=== PATIENT | male | born 1970 | race Caucasian/White ===

== ENCOUNTER 2017-06-11 21:10 | Emergency (ER) | payer SELFPAY ==
[2017-06-11 21:15] VITALS: BP 102/88; PULSE 72; O2SAT 98
--- NOTE | 2017-06-11 21:32 | ERPHSYRPT ---
- History of Present Illness Time Seen by Provider: 06/11/17 21:25 Source: patient Exam Limitations: intoxication Patient Subjective Stated Complaint: pt was pulled over and had high breathalyzer. here for clearance of snf. Triage Nursing Assessment: pt was pulled over for Physician History: 47 y/o male brought in by police for alcohol intoxication while driving. Pt had an alcohol level over 200. In the ER, patient is very intoxicated and not able to give a reliable history. Pt denies any chest pain, shortness of breath, dizziness or palpitations. No fall from alcohol use and the patient is denying any illicit drug use. Timing/Duration: today Associated Symptoms: denies symptoms Allergies/Adverse Reactions: No Known Drug Allergies Allergy (Unverified 01/14/13 14:50) Home Medications: Metoprolol Tartrate 0 mg PO BID 01/14/13 [History] Simvastatin 0.5 tab PO HS 01/14/13 [History] Hx Tetanus, Diphtheria Vaccination/Date Given: Yes Hx Influenza Vaccination/Date Given: Yes Hx Pneumococcal Vaccination/Date Given: No Immunizations Up to Date: Yes - Review of Systems Constitutional: No Fever, No Chills Eyes: No Symptoms Ears, Nose, & Throat: No Symptoms Respiratory: No Cough, No Dyspnea Cardiac: No Chest Pain, No Edema, No Palpitations, No Syncope Abdominal/Gastrointestinal: No Abdominal Pain, No Nausea, No Vomiting, No Diarrhea Genitourinary Symptoms: No Dysuria Musculoskeletal: No Back Pain, No Neck Pain Skin: No Rash Neurological: No Dizziness, No Focal Weakness, No Sensory Changes Psychological: No Symptoms Endocrine: No Symptoms All Other Systems: Reviewed and Negative - Past Medical History Pertinent Past Medical History: Yes Cardiac History: Angina, Coronary Artery Disease - Past Surgical History Past Surgical History: Yes Cardiac: CABG, Cardiac Catheterization Musculoskeletal: Other Other Surgical History: tonsils, tumors removed from leg and lymph nodes (cancer ) - Social History Smoking Status: Current every day smoker How long have you smoked: years Exposure to second hand smoke: Yes Alcohol Use: Socially Drug Use: methamphetamines Patient Lives Alone: No Significant Family History: heart disease, hypertension - Nursing Vital Signs Nursing Vital Signs: Initial Vital Signs Temperature 98.2 F 06/11/17 21:12 Pulse Rate 72 06/11/17 21:12 Respiratory Rate 14 06/11/17 21:12 Blood Pressure 102/88 06/11/17 21:12 O2 Sat by Pulse Oximetry 98 06/11/17 21:12 Pain Scale Pain Intensity 0 - Physical Exam General Appearance: alert, anxiety, obese, other (intoxicated) Eye Exam: PERRL/EOMI, eyes nml inspection Ears, Nose, Throat Exam: normal ENT inspection, TMs normal, pharynx normal, moist mucous membranes Neck Exam: normal inspection, non-tender, supple, full range of motion Respiratory Exam: normal breath sounds, lungs clear, No respiratory distress Cardiovascular Exam: regular rate/rhythm, normal heart sounds, normal peripheral pulses Gastrointestinal/Abdomen Exam: soft, normal bowel sounds, No tenderness, No mass Back Exam: normal inspection, normal range of motion, No CVA tenderness, No vertebral tenderness Extremity Exam: normal inspection, normal range of motion, pelvis stable Neurologic Exam: alert, oriented x 3, cooperative, normal mood/affect, nml cerebellar function, nml station & gait, sensation nml, No motor deficits Skin Exam: normal color, warm, dry, No rash Lymphatic Exam: No adenopathy SpO2: 98 Oxygen Delivery: Room Air - Course Nursing assessment & vital signs reviewed: Yes - Progress Progress: unchanged Progress Note: 06/11/17 21:31 Pt has been medically cleared for patient to go to snf. - Departure Time of Disposition: 21:31 Departure Disposition: [facility]/Care Home Clinical Impression: Alcohol intoxication Qualifiers: Complication of substance-induced condition: uncomplicated Qualified Code(s): F10.920 - Alcohol use, unspecified with intoxication, uncomplicated Condition: Good Critical Care Time: No Instructions: Alcohol Abuse and Alcoholism (DC)
== END 2017-06-11 21:37 | disposition home or self-care (01) ==
LOC: ED 21:10
DX: F10.920 Alcohol use, unspecified with intoxication, uncomplicated (principal)
CPT/HCPCS: 99281

== ENCOUNTER 2017-07-13 11:54 | Inpatient (IN) | payer MEDICAID, OTHER ==
--- NOTE | 2017-07-13 12:46 | ERPHSYRPT ---
- History of Present Illness Time Seen by Provider: 07/13/17 12:39 Source: patient, police Exam Limitations: no limitations Patient Subjective Stated Complaint: pt here for sob since last night.with productive cough, low grade fever, Triage Nursing Assessment: pt alert, resp easy, skin w/d/p, chest clear, no edema, pt walked in Physician History: The patient is a 47-year-old inmate at the [facility] brought in by police complaining of a cough with green sputum since last night. He feels short of breath. He had a fever of 100 earlier today. He denies nausea, vomiting, or diarrhea. He smokes cigarettes but hasn't since he's been in long term. His past medical history is significant for coronary artery disease, 4 vessel CABG in November 2016, high cholesterol, and hypertension. Timing/Duration: yesterday, gradual onset Cough Quality/Degree: productive cough, sputum Possible Cause: no prior episodes Modifying Factors: Improves With: coughing Associated Symptoms: fever, cough Allergies/Adverse Reactions: No Known Drug Allergies Allergy (Verified 07/13/17 12:33) Home Medications: Metoprolol Tartrate 25 mg PO BID 01/14/13 [History] Simvastatin 0.5 tab PO HS 01/14/13 [History] Amiodarone HCl 200 mg [Cordarone 200 MG] 200 mg DAILY 07/13/17 [History] Aspirin [Aspirin EC] 07/13/17 [History] Furosemide 40 mg [Lasix 40 MG] 07/13/17 [History] Ibuprofen [Motrin Ib] 07/13/17 [History] Magnesium Oxide 400 mg [Mag-Ox 400] 07/13/17 [History] Potassium Citrate [Potassium Citrate ER] 07/13/17 [History] Sertraline HCl 07/13/17 [History] Hx Tetanus, Diphtheria Vaccination/Date Given: Yes Hx Influenza Vaccination/Date Given: No Hx Pneumococcal Vaccination/Date Given: No Immunizations Up to Date: Yes - Review of Systems Constitutional: Fever Eyes: No Symptoms Ears, Nose, & Throat: No Symptoms Respiratory: Cough, Dyspnea, Dyspnea on Exertion (REED) Cardiac: No Chest Pain, No Edema, No Syncope Abdominal/Gastrointestinal: No Abdominal Pain, No Nausea, No Vomiting, No Diarrhea Genitourinary Symptoms: No Dysuria Musculoskeletal: No Back Pain, No Neck Pain Skin: No Rash Neurological: No Dizziness, No Focal Weakness, No Sensory Changes Psychological: No Symptoms Endocrine: No Symptoms Hematologic/Lymphatic: No Symptoms Immunological/Allergic: No Symptoms All Other Systems: Reviewed and Negative - Past Medical History Pertinent Past Medical History: Yes Cardiac History: Angina, Coronary Artery Disease, High Cholesterol, Hypertension - Past Surgical History Past Surgical History: Yes Cardiac: CABG, Cardiac Catheterization Musculoskeletal: Other Other Surgical History: tonsils, tumors removed from leg and lymph nodes (cancer ) - Social History Smoking Status: Current every day smoker How long have you smoked: years Exposure to second hand smoke: Yes (stop smoking for a m) Alcohol Use: Socially Drug Use: methamphetamines Patient Lives Alone: No (long term) Significant Family History: heart disease, hypertension - Nursing Vital Signs Nursing Vital Signs: Initial Vital Signs Temperature 98.4 F 07/13/17 12:00 Pulse Rate 53 L 07/13/17 12:00 Respiratory Rate 20 07/13/17 12:00 Blood Pressure 140/77 07/13/17 12:00 O2 Sat by Pulse Oximetry 93 L 07/13/17 12:00 Pain Scale Pain Intensity 2 - Physical Exam General Appearance: no apparent distress, alert Eye Exam: PERRL/EOMI, eyes nml inspection Ears, Nose, Throat Exam: normal ENT inspection, TMs normal, pharynx normal, moist mucous membranes Neck Exam: normal inspection, non-tender, supple, full range of motion Respiratory Exam: wheezing (faint) Cardiovascular Exam: regular rate/rhythm, normal heart sounds Gastrointestinal/Abdomen Exam: soft, No tenderness Rectal Exam: not done Back Exam: normal inspection, No CVA tenderness, No vertebral tenderness Extremity Exam: normal inspection, normal range of motion Neurologic Exam: alert, oriented x 3, cooperative, normal mood/affect, sensation nml, No motor deficits Skin Exam: normal color, warm, dry, No rash Lymphatic Exam: No adenopathy SpO2 Interpretation: normal SpO2: 98 Oxygen Delivery: Room Air - Course EKG Interpreted by Me: RATE, Sinus Rhythm, NORMAL AXIS, 1st degree AV Block, NORMAL QRS, NORMAL ST-T - Radiology Exams Chest X-ray Interpretation: Reviewed by me, Teleradiologist Report, Other (bilateral airspace disease with tiny bibasilar effusions. per Dr Woodall.) Ordered Tests: Active Orders 24 hr Category Date Time Status EKG-ER Only STAT Care 07/13/17 14:30 Active IV Insertion STAT Care 07/13/17 14:30 Active CHEST 2 VIEWS (PA AND LAT) Stat Exams 07/13/17 14:30 Completed CBC W DIFF Stat Lab 07/13/17 14:47 Completed CMP Stat Lab 07/13/17 14:47 Completed CULTURE,SPUTUM Stat Lab 07/13/17 16:01 Uncollected Lactic Acid Stat Lab 07/13/17 14:43 Completed NT PRO BNP Stat Lab 07/13/17 15:33 Completed TROPONIN Stat Lab 07/13/17 14:47 Completed Respiratory Nebulizer STAT RT 07/13/17 15:32 Completed Medication Summary Discontinued Medications Generic Name Dose Route Start Last Admin Trade Name Freq PRN Reason Stop Dose Admin Albuterol Sulfate 2.5 mg 07/13/17 15:31 07/13/17 15:45 Proventil 2.5 Mg/3 Ml Neb IH 07/13/17 15:32 2.5 mg STAT ONE Administration Albuterol Sulfate Confirm 07/13/17 15:41 Proventil 2.5 Mg/3 Ml Neb Administered 07/13/17 15:42 Dose 2.5 mg IH .STK-MED ONE Lab/Rad Data: Laboratory Result Diagrams 07/13/17 14:47 07/13/17 14:47 Laboratory Results 07/13/17 07/13/17 07/13/17 Range/Units 15:33 14:47 14:47 WBC 13.0 H (4.0-10.5) K/mm3 RBC 5.25 (4.1-5.6) M/mm3 Hgb 15.2 (12.5-18.0) gm/dl Hct 45.4 (42-50) % MCV 86.5 (78-100) fl MCH 29.0 (26-32) pg MCHC 33.5 (32-36) g/dl RDW 15.8 H (11.5-14.0) % Plt Count 198 (150-450) K/mm3 MPV 13.0 H (6-9.5) fl Gran % 83.1 H (36.0-66.0) % Eos # (Auto) 0.11 (0-0.5) Absolute Lymphs (auto) 1.09 (1.0-4.6) Absolute Monos (auto) 0.98 (0.0-1.3) Lymphocytes % 8.4 L (24.0-44.0) % Monocytes % 7.5 (0.0-12.0) % Eosinophils % 0.8 (0.00-5.0) % Basophils % 0.2 (0.0-0.4) % Absolute Granulocytes 10.83 H (1.4-6.9) Basophils # 0.03 (0-0.4) Sodium 142 (137-145) mmol/L Potassium 4.4 (3.5-5.1) mmol/L Chloride 104 (98-107) mmol/L Carbon Dioxide 25 (22-30) mmol/L Anion Gap 16.8 H (5-15) MEQ/L BUN 16 (9-20) mg/dL Creatinine 0.85 (0.66-1.25) mg/dL Estimated GFR > 60 ML/MIN Glucose 126 H (74-106) mg/dL Lactic Acid (0.4-2.0) Calcium 9.5 (8.4-10.2) mg/dL Total Bilirubin 1.00 (0.2-1.3) mg/dL AST 19 (17-59) U/L ALT 15 (0-50) U/L Alkaline Phosphatase 71 (38-126) U/L Troponin I 0.049 H* (0.000-0.034) ng/mL NT-Pro-B Natriuret Pep 3410 H (0-450) pg/mL Serum Total Protein 6.9 (6.3-8.2) g/dL Albumin 3.9 (3.5-5.0) g/dL 07/13/17 Range/Units 14:43 WBC (4.0-10.5) K/mm3 RBC (4.1-5.6) M/mm3 Hgb (12.5-18.0) gm/dl Hct (42-50) % MCV (78-100) fl MCH (26-32) pg MCHC (32-36) g/dl RDW (11.5-14.0) % Plt Count (150-450) K/mm3 MPV (6-9.5) fl Gran % (36.0-66.0) % Eos # (Auto) (0-0.5) Absolute Lymphs (auto) (1.0-4.6) Absolute Monos (auto) (0.0-1.3) Lymphocytes % (24.0-44.0) % Monocytes % (0.0-12.0) % Eosinophils % (0.00-5.0) % Basophils % (0.0-0.4) % Absolute Granulocytes (1.4-6.9) Basophils # (0-0.4) Sodium (137-145) mmol/L Potassium (3.5-5.1) mmol/L Chloride (98-107) mmol/L Carbon Dioxide (22-30) mmol/L Anion Gap (5-15) MEQ/L BUN (9-20) mg/dL Creatinine (0.66-1.25) mg/dL Estimated GFR ML/MIN Glucose (74-106) mg/dL Lactic Acid 1.2 (0.4-2.0) Calcium (8.4-10.2) mg/dL Total Bilirubin (0.2-1.3) mg/dL AST (17-59) U/L ALT (0-50) U/L Alkaline Phosphatase (38-126) U/L Troponin I (0.000-0.034) ng/mL NT-Pro-B Natriuret Pep (0-450) pg/mL Serum Total Protein (6.3-8.2) g/dL Albumin (3.5-5.0) g/dL - Progress Progress: improved Air Movement: good Blood Culture(s) Obtained: Yes Antibiotics given: Yes Discussed with : Jayla Counseled pt/family regarding: lab results, diagnosis, rad results - Departure Time of Disposition: 16:28 Departure Disposition: In-patient Admission (per Dr Dickerson) Clinical Impression: Pneumonia Condition: Stable Critical Care Time: No Referrals: DOCTOR,NO FAMILY [Primary Care Provider] -
[2017-07-13 14:49] LABS: BASOPHIL % 0.2 % (0.0-0.4); Basophil (Absolute #) 0.03 (0-0.4); Eosinophil % 0.8 % (0.00-5.0); Eosinophil (Absolute #) 0.11 (0-0.5); Granulocyte Absolute (ANC) 10.83 (1.4-6.9); Granulocytes % 83.1 % (36.0-66.0); Hematocrit 45.4 % (42-50); Hemoglobin 15.2 gm/dl (12.5-18.0); Lymphocyte (Absolute #) 1.09 (1.0-4.6); Lymphocytes % 8.4 % (24.0-44.0); Mean Cell Volume 86.5 fl (78-100); Mean Corpuscular Hgb Concent. 33.5 g/dl (32-36); Monocyte (Absolute #) 0.98 (0.0-1.3); Monocytes % 7.5 % (0.0-12.0); Platelet Count 198 K/mm3 (150-450); Red Blood Count 5.25 M/mm3 (4.1-5.6); Red Cell Distribution Width 15.8 % (11.5-14.0)
[2017-07-13 15:10] LABS: ALBUMIN 3.9 g/dL (3.5-5.0); ALKALINE PHOSPHATASE 71 U/L (38-126); ANION GAP 16.8 MEQ/L (5-15); BLOOD UREA NITROGEN 16 mg/dL (9-20); CHLORIDE 104 mmol/L (98-107); Calcium 9.5 mg/dL (8.4-10.2); Carbon Dioxide 25 mmol/L (22-30); Creatinine 1 0.85 mg/dL (0.66-1.25); Glucose 126 mg/dL (74-106); Potassium 4.4 mmol/L (3.5-5.1); SGOT/AST 19 U/L (17-59); SGPT/ALT 15 U/L (0-50); SODIUM 142 mmol/L (137-145); Total Protein 6.9 g/dL (6.3-8.2)
[2017-07-13] MEDS ORDERED: PROVENTIL 2.5 MG/3 ML NEB IH ONE ×2 (15:31→15:41)
[2017-07-13 15:32] LABS: TROPONIN 0.049 ng/mL (0.000-0.034)
--- NOTE | 2017-07-13 15:32 | XRAY ---
Indication: Fever, cough, and chest pain. Comparison: December 10, 2009. PA/lateral chest demonstrates new diffuse bilateral airspace disease with tiny bibasilar effusions. Heart remains enlarged with interval CABG surgery. Bony thorax intact with mild degenerative changes.
[2017-07-13] MEDS ORDERED: ROCEPHIN 1 Gm-D5w 50 ml Bag** 1 G/50 ML IVPB IV STA (16:27)
[2017-07-13] MEDS ORDERED: ROCEPHIN 1 Gm-D5w 50 ml Bag** 1 G/50 ML IVPB IV ONE (16:30)
[2017-07-13] MEDS ORDERED: Zofran 4 MG/2 ML VIAL IV PRN (17:17)
[2017-07-13 17:49] LABS: INFLUENZA A NEGATIVE (NEGATIVE); INFLUENZA B NEGATIVE (NEGATIVE); RESPIRATORY SYNCTIAL VIRUS NEGATIVE (Negative)
[2017-07-13] MEDS: Zithromax 500 MG/ 250 ML NaCl Premix 500 MG/250 ML IVPB IV SCH (17:53)
[2017-07-13] MEDS: PROVENTIL 2.5 MG/3 ML NEB IH SCH (18:45)
[2017-07-13 21:27] LABS: A-aADO2 207; ABG HEMOGLOBIN 15.2; ABG POTASSIUM 4.3 (3.5-5.1); ARTERIAL BLD GAS O2 SATURATION 97.4 % (95-100); ARTERIAL BLOOD GAS BASE EXCESS 2.3 (-2.0-2.0); ARTERIAL BLOOD GAS FIO2 44 %; ARTERIAL BLOOD GAS PCO2 33 mmHg (35-45); ARTERIAL BLOOD GAS PO2 65 mmHg (75-100); ARTERIAL BLOOD GAS pH 7.49 (7.35-7.45); CARBOXYHEMOGLOBIN 3.1 % THgb (0.0-6.9); HCO3- 25.1 (22-28); HGB O2 SAT 92.9 g/dF (94-100); Methhemoglobin 1.5 % (1.4-1.5); paO2 pAO1 0.24
[2017-07-13 21:28] LABS: ABG SITE LEFT RADIAL; ALLEN TEST OK? YES
[2017-07-13] MEDS ORDERED: MOTRIN 200 MG PO ONE (22:00)
[2017-07-13] MEDS ORDERED: Lopressor 25MG Tab PO ONE (22:00)
[2017-07-13] MEDS ORDERED: ZOCOR 20MG PO ONE (22:00)
[2017-07-13] MEDS: ENOXAPARIN SODIUM SQ SCH (22:26)
[2017-07-14] MEDS: PROVENTIL 2.5 MG/3 ML NEB IH SCH ×7 (00:50→23:23)
[2017-07-14] MEDS: TYLENOL 325 MG PO PRN ×2 (03:40→23:32)
[2017-07-14 04:40] LABS: BASOPHIL % 0.2 % (0.0-0.4); Basophil (Absolute #) 0.03 (0-0.4); Eosinophil % 0.1 % (0.00-5.0); Eosinophil (Absolute #) 0.02 (0-0.5); Granulocytes % 81.7 % (36.0-66.0); Hematocrit 42.5 % (42-50); Hemoglobin 14.5 gm/dl (12.5-18.0); Lymphocyte (Absolute #) 1.48 (1.0-4.6); Lymphocytes % 9.8 % (24.0-44.0); Mean Cell Volume 86.4 fl (78-100); Mean Corpuscular Hemoglobin 29.5 pg (26-32); Mean Corpuscular Hgb Concent. 34.1 g/dl (32-36); Monocyte (Absolute #) 1.23 (0.0-1.3); Monocytes % 8.2 % (0.0-12.0); Platelet Count 175 K/mm3 (150-450); Red Blood Count 4.92 M/mm3 (4.1-5.6); Red Cell Distribution Width 15.8 % (11.5-14.0); White Blood Count 15.1 K/mm3 (4.0-10.5)
[2017-07-14 05:04] LABS: ALBUMIN 3.7 g/dL (3.5-5.0); ALKALINE PHOSPHATASE 64 U/L (38-126); ANION GAP 16.3 MEQ/L (5-15); BLOOD UREA NITROGEN 18 mg/dL (9-20); CHLORIDE 105 mmol/L (98-107); Calcium 9.1 mg/dL (8.4-10.2); Carbon Dioxide 23 mmol/L (22-30); Creatinine 1 0.76 mg/dL (0.66-1.25); Glucose 147 mg/dL (74-106); SGOT/AST 14 U/L (17-59); SGPT/ALT 12 U/L (0-50); SODIUM 141 mmol/L (137-145); Total Protein 6.6 g/dL (6.3-8.2)
--- NOTE | 2017-07-14 09:26 | HP ---
CHIEF COMPLAINT: Shortness of breath. HISTORY OF PRESENT ILLNESS: The patient is a 47 year-old white male patient resident of the local group home for the past 30 days. He apparently had three more weeks to go. He was released from the group home for his hospital stay but they wish him to return after the hospitalization. The patient's medical history includes history of coronary artery disease with coronary artery bypass graft performed approximately six months ago. He has been taken care of by Dr. Hay in [place] but currently sees the [facility] otherwise for his usual medical care. The patient denied any problems with fevers, chills or sweats recently. Just having more problems with shortness of breath, having to sit up to sleep at night and having very shallow respirations. The patient was brought to the emergency room and found to have some hypoxia. He had evaluation and eventually diagnosed with pneumonia, possible superimposed heart failure. PAST MEDICAL/SURGICAL HISTORY: Otherwise significant for hyperlipidemia. He is a smoker. 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 MEDICATIONS: Metoprolol 25 mg b.i.d., Simvastatin at night, amiodarone 200 mg, aspirin enteric coated daily, Lasix 40 mg daily, ibuprofen PRN, magnesium oxide tablets, potassium, Sertraline for depression. ALLERGIES: NKDA. PHYSICAL EXAMINATION: Vital signs with temperature 98.4F, pulse 52, respiratory rate 20, blood pressure 140/77. O2 saturations 93% on supplemental oxygen with nasal cannula. HEENT: Normocephalic, atraumatic. Pupils equal round reactive to light. Extraocular movements intact. Oropharynx is pink and moist. He is wearing oxygen nasal cannula presently. NECK: Supple without lymphadenopathy, thyromegaly or JVD. CHEST: Diminished air movements but no significant wheezes or rales were heard. HEART: Regular rate and rhythm without significant murmurs, rubs or gallops. ABDOMEN: Soft. No palpable masses. EXTREMITIES: Without clubbing or cyanosis. There is trace edema present in the lower extremities. LAB DATA AND TESTS: Chest x-ray revealed new diffuse bilateral airspace disease with tiny bibasilar effusions and evidence of coronary artery bypass graft. His lab studies revealed a slightly elevated troponin of 0.056 in the emergency room. His lactic acid was noted to be 1.2. ProBNP was elevated at 3,410. His metabolic panel showed a glucose of 126 nonfasting, BUN 16, creatinine 0.85. Electrolytes were normal. Liver enzymes were normal. His white blood cell count was elevated at 13,000 with what appears to be left shift with 83.1% granulocytes. His hemoglobin 15.2, PLT count 198,000. Influenza A, B and respiratory syncytial virus were negative. He had initial ABG showing pH of 7.49, pCO2 33, pO2 65 this was on FIO2 of 44%. His EKG revealed sinus bradycardia rate of 52. He had tiny Q-waves in I and aVL, poor R-wave progression across the precordial leads but no current injury with no significant ST-T wave changes. ASSESSMENT: A patient with probable pneumonia. He has been admitted on Rocephin and Zithromax and also concern for possible overlying heart failure. He will receive some IV Lasix. We will retain an echocardiogram. He will be maintained on his usual home medications as listed in the history and physical above.
[2017-07-14] MEDS: ZOLOFT 50 MG TABLET PO SCH (09:59)
[2017-07-14] MEDS: ENOXAPARIN SODIUM SQ SCH (10:00)
[2017-07-14] MEDS: Lasix 40 MG/4 ML IV SCH (10:00)
[2017-07-14] MEDS ORDERED: Lasix 40 MG PO SCH (10:00)
[2017-07-14] MEDS: Klor Con 10 MEQ PO SCH (10:00)
[2017-07-14] MEDS: ECOTRIN 81 MG PO SCH (10:00)
[2017-07-14] MEDS ORDERED: NON-FORMULARY ITEM (Aspirin [Aspirin] 81 MG) PO SCH (10:00)
[2017-07-14] MEDS: Lopressor 25MG Tab PO SCH ×2 (10:00→20:33)
[2017-07-14] MEDS: MOTRIN 200 MG PO SCH ×2 (10:00→20:34)
[2017-07-14] MEDS: Cordarone 200 MG PO SCH (10:00)
[2017-07-14] MEDS: MAG-OX 400 PO SCH (10:00)
[2017-07-14] MEDS ORDERED: ROCEPHIN 1 Gm-D5w 50 ml Bag** 1 G/50 ML IVPB IV SCH (10:00)
[2017-07-14] MEDS: Zithromax 500 MG/ 250 ML NaCl Premix 500 MG/250 ML IVPB IV SCH (17:59)
[2017-07-14 21:23] LABS: A-aADO2 265; ABG POTASSIUM 3.9 (3.5-5.1); ARTERIAL BLD GAS O2 SATURATION 95.5 % (95-100); ARTERIAL BLOOD GAS BASE EXCESS 2.2 (-2.0-2.0); ARTERIAL BLOOD GAS FIO2 52 %; ARTERIAL BLOOD GAS PCO2 35 mmHg (35-45); ARTERIAL BLOOD GAS PO2 62 mmHg (75-100); ARTERIAL BLOOD GAS pH 7.47 (7.35-7.45); CARBOXYHEMOGLOBIN 2.9 % THgb (0.0-6.9); HCO3- 25.5 (22-28); HGB O2 SAT 91.6 g/dF (94-100); Methhemoglobin 1.3 % (1.4-1.5); paO2 pAO1 0.19
[2017-07-14 21:24] LABS: ABG SITE RIGHT RADIAL; ALLEN TEST OK? YES
[2017-07-14] MEDS ORDERED: ZOCOR 20MG PO SCH (22:00)
[2017-07-14] MEDS ORDERED: Lasix 40 MG/4 ML IV ONE (22:38)
[2017-07-14] MEDS ORDERED: LEVOFLOXACIN 750MG/150ML D5W 750 MG/150 ML BAG IV ONE (22:41)
[2017-07-15] MEDS: PROVENTIL 2.5 MG/3 ML NEB IH SCH ×3 (03:32→12:04)
[2017-07-15] MEDS ORDERED: solu-MEDROL 125 MG IV SCH ×2 (04:00→12:00)
[2017-07-15 06:03] LABS: BASOPHIL % 0.2 % (0.0-0.4); Basophil (Absolute #) 0.02 (0-0.4); Eosinophil % 0.6 % (0.00-5.0); Eosinophil (Absolute #) 0.08 (0-0.5); Granulocyte Absolute (ANC) 9.73 (1.4-6.9); Granulocytes % 75.4 % (36.0-66.0); Hematocrit 41.4 % (42-50); Hemoglobin 13.8 gm/dl (12.5-18.0); Lymphocyte (Absolute #) 1.65 (1.0-4.6); Lymphocytes % 12.8 % (24.0-44.0); Mean Cell Volume 87.2 fl (78-100); Mean Corpuscular Hemoglobin 29.1 pg (26-32); Mean Corpuscular Hgb Concent. 33.3 g/dl (32-36); Mean Platelet Volume 12.7 fl (6-9.5); Monocyte (Absolute #) 1.42 (0.0-1.3); Platelet Count 157 K/mm3 (150-450); Red Blood Count 4.75 M/mm3 (4.1-5.6); Red Cell Distribution Width 15.7 % (11.5-14.0); White Blood Count 12.9 K/mm3 (4.0-10.5)
[2017-07-15 06:29] LABS: BLOOD UREA NITROGEN 19 mg/dL (9-20); Calcium 9.1 mg/dL (8.4-10.2); Carbon Dioxide 27 mmol/L (22-30); Creatinine 1 0.65 mg/dL (0.66-1.25); Glucose 108 mg/dL (74-106); SODIUM 139 mmol/L (137-145)
[2017-07-15 06:31] LABS: CHLORIDE 101 mmol/L (98-107)
[2017-07-15 06:40] LABS: NT PRO BNP 2740 pg/mL (0-450)
[2017-07-15] MEDS ORDERED: Ativan 2 MG/1 ML VIAL IV ONE (09:16)
[2017-07-15] MEDS ORDERED: Furosemide 100mg/10 ml Vial IV ONE (09:29)
[2017-07-15] MEDS: MAG-OX 400 PO SCH (09:44)
[2017-07-15] MEDS: Cordarone 200 MG PO SCH (09:44)
[2017-07-15] MEDS: ECOTRIN 81 MG PO SCH (09:44)
[2017-07-15] MEDS: ENOXAPARIN SODIUM SQ SCH (09:44)
[2017-07-15] MEDS: Klor Con 10 MEQ PO SCH (09:45)
[2017-07-15] MEDS: Lopressor 25MG Tab PO SCH (09:45)
[2017-07-15] MEDS: Lasix 40 MG/4 ML IV SCH (09:45)
[2017-07-15] MEDS: ZOLOFT 50 MG TABLET PO SCH (09:45)
[2017-07-15 09:55] LABS: HIV Antigen/Antibody Combo Non Reactive (Non Reactive)
[2017-07-15] MEDS ORDERED: LEVOFLOXACIN 750MG/150ML D5W 750 MG/150 ML BAG IV SCH ×3 (10:00→22:00)
--- NOTE | 2017-07-15 10:03 | PCM.DS ---
Discharge Summary Date of Admission: 07/13/17 17:06 Admitting Physician: ALESHIA CALVERT Consults: Consults on Case 07/14/17 08:52 Consult Pulmonology ROUTINE Primary Care Provider: NO FAMILY DOCTOR Allergies Allergies No Known Drug Allergies Allergy (Verified 07/13/17 17:36) Hospital Summary - Hospital Course Hospital Course: Pt is 47 yo male with CAD admitted to [facility] through ER with pneumonia. He was an inmate of the formerly [facility] senior living, but was released on his own recognizance here at the hospital (after discharge is apparently expected to return to senior living). Initially he had an O2 requirement of 3L NC, but by last night required 8L NC. CXR at that time with diffuse airspace disease, question of developing ARDS. He was changed from his initial antibiotic therapy of rocephin and zithromax to Levaquin 750 mg and given 125mg IV solumedrol. This morning CXR shows a little worsening. He was on Bipap overnight; tried to get off of it this morning (sat in the chair to eat) but O2 sat dropped into the 70s. His RR is in the 40s and he is currently still on bipap. I spoke with Dr. Owens, hospitalist at [facility], and we will transfer the patient to [facility]. I have ordered a dose of IV zosyn. We are going to intubate the patient first; pt was relieved to hear he will be intubated. - Vitals & Intake/Output Vital Signs: Vital Signs Temperature 97.8 F 07/15/17 08:00 Pulse Rate 64 07/15/17 08:00 Respiratory Rate 40 H 07/15/17 08:00 Blood Pressure 126/75 07/15/17 08:00 O2 Sat by Pulse Oximetry 96 07/15/17 08:00 Oxygen-Last Documented O2 Percentage 50% Intake & Output: Intake & Output 07/12/17 07/13/17 07/14/17 07/15/17 11:59 11:59 11:59 11:59 Intake Total 1300 2250 Output Total 1210 3230 Balance 90 -980 Weight 125.5 kg 122.7 kg - Lab Result Diagrams: 07/15/17 05:13 07/15/17 05:13 Lab Results-Last 24 Hrs: Lab Results-Last 24 Hours 07/14/17 07/15/17 07/15/17 Range/Units 21:14 05:13 05:13 WBC 12.9 H (4.0-10.5) K/mm3 RBC 4.75 (4.1-5.6) M/mm3 Hgb 13.8 (12.5-18.0) gm/dl Hct 41.4 L (42-50) % MCV 87.2 (78-100) fl MCH 29.1 (26-32) pg MCHC 33.3 (32-36) g/dl RDW 15.7 H (11.5-14.0) % Plt Count 157 (150-450) K/mm3 MPV 12.7 H (6-9.5) fl Gran % 75.4 H (36.0-66.0) % Eos # (Auto) 0.08 (0-0.5) Absolute Lymphs (auto) 1.65 (1.0-4.6) Absolute Monos (auto) 1.42 H (0.0-1.3) Lymphocytes % 12.8 L (24.0-44.0) % Monocytes % 11.0 (0.0-12.0) % Eosinophils % 0.6 (0.00-5.0) % Basophils % 0.2 (0.0-0.4) % Absolute Granulocytes 9.73 H (1.4-6.9) Basophils # 0.02 (0-0.4) Puncture Site RIGHT RADIAL pCO2 35 (35-45) mmHg pO2 62 L (75-100) mmHg Base Excess 2.2 H (-2.0-2.0) O2 Saturation 91.6 L (94-100) g/dF ABG pH 7.47 H (7.35-7.45) ABG HCO3 25.5 (22-28) ABG O2 Sat (Measured) 95.5 (95-100) % Austen Test YES A-a Gradient 265 a/A Ratio 0.19 Hemoglobin 15.0 Carboxyhemoglobin 2.9 (0.0-6.9) % THgb Methemoglobin 1.3 L (1.4-1.5) % Potassium 3.9 4.0 (3.5-5.1) Temperature 37.0 C POC O2 Flow Rate 52 % Sodium 139 (137-145) mmol/L Chloride 101 (98-107) mmol/L Carbon Dioxide 27 (22-30) mmol/L Anion Gap 11.0 (5-15) MEQ/L BUN 19 (9-20) mg/dL Creatinine 0.65 L (0.66-1.25) mg/dL Estimated GFR > 60 ML/MIN Glucose 108 H (74-106) mg/dL Calcium 9.1 (8.4-10.2) mg/dL NT-Pro-B Natriuret Pep 2740 H (0-450) pg/mL - Radiology Exams Ordered Rad Exams-Entire Visit: Radiology Procedures Category Date Time Status CHEST 1 VIEW (PORTABLE) Routine Exams 07/15/17 06:00 Taken CHEST 1 VIEW (PORTABLE) Stat Exams 07/14/17 20:57 Taken ECHO W/2D AND DOPPLER [US] Routine Exams 07/14/17 13:51 Taken - Procedures and Test Procedures and Tests throughout Hospitalization: Therapy Orders & Screens 07/13/17 17:17 Oxygen NASAL CANNULA 2 lpm Comment: Diagnosis: Shortness of Breath 07/13/17 19:00 neb [Respiratory Nebulizer] Q4H Comment: Diagnosis: Shortness of Breath 07/13/17 19:29 BiPap/CPAP Assessment ROUTINE Comment: Diagnosis: Shortness of Breath Discharge Exam General Appearance: moderate distress (tachypneic), obese Neurologic Exam: alert, cooperative Skin Exam: normal color, warm, dry, No rash Eye Exam: eyes nml inspection Ears, Nose, Throat Exam: moist mucous membranes Respiratory Exam: lungs clear, diminished breath sounds, No crackles/rales, No rhonchi, No wheezing Cardiovascular Exam: regular rate/rhythm, normal heart sounds, No murmur Gastrointestinal/Abdomen Exam: soft, normal bowel sounds, No tenderness, No mass , No guarding, No rebound Extremity Exam: normal inspection, No pedal edema, No swelling Final Diagnosis/Problem List - Final Discharge Diagnosis/Problem (1) Acute hypoxemic respiratory failure Current Visit: Yes Status: Acute Assessment & Plan: Will intubate here and transfer by ambulance to [facility] under Dr. Roberson, hospitalist (thank you). I gave him 40mg IV lasix last night and 80mg IV lasix this morning (BNP is elevated). (2) Pneumonia Current Visit: Yes Status: Acute Onset Date: ~07/14/17 Assessment & Plan: Stopped IV levaquin; ordered IV zosyn. (3) Elevated troponin Current Visit: Yes Status: Acute Onset Date: 07/14/17 Assessment & Plan: Was elevated early in his stay, then trended down. (4) Hx of CABG Current Visit: Yes Status: Acute Onset Date: ~11/30/16 Assessment & Plan: In Nov 2016 had CABG x 4. - Discharge Disposition: DC TO [facility] Condition: Stable Prescriptions: No Action Simvastatin 40 mg PO HS Metoprolol Tartrate 25 mg PO BID Sertraline HCl 50 mg PO DAILY Magnesium Oxide 400 mg [Mag-Ox 400] 400 mg PO DAILY Ibuprofen [Motrin Ib] 200 mg PO BID Furosemide 40 mg [Lasix 40 MG] 40 mg PO DAILY Amiodarone HCl 200 mg [Cordarone 200 MG] 200 mg DAILY Potassium Chloride 10 Meq Tab* [Klor Con 10 MEQ] 10 meq PO DAILY Aspirin 81 mg PO DAILY Follow up with: DOCTOR,NO FAMILY [Primary Care Provider] - 1 Week
[2017-07-15] MEDS: Zosyn INJ 4.5 GM in D5w 100ML Mini Bag 100 ML 100 ML IV SCH ×2 (10:04→10:09)
--- NOTE | 2017-07-15 10:13 | XRAY ---
Indication: Change in respiratory status. Comparison: One day earlier. Portable chest demonstrates worsening diffuse bilateral air space opacities with now multifocal consolidations and small bibasilar effusions now obscuring the cardiac silhouette. Rule out acute respiratory distress syndrome.
[2017-07-15] MEDS ORDERED: VERSED 5 MG/5 ML IV ONE ×3 (10:30→13:50)
[2017-07-15] MEDS ORDERED: Quelicin Fliptop 200 MG/10 ML IV ONE (10:30)
--- NOTE | 2017-07-15 10:31 | XRAY ---
Indication: Respiratory distress. Short of breath. Transfer to ICU. Comparison: One day earlier. Portable apical lordotic chest demonstrates stable marked diffuse bilateral air space disease with multifocal consolidations and small bibasilar effusions again obscuring the cardiomediastinal silhouette. No new findings. Comment: Preliminary interpretation was made by [facility]. No discrepancy.
[2017-07-15] MEDS ORDERED: Nimbex 20MG/10 Ml Vial (HIGH RISK MED) IV ONE (10:45)
[2017-07-15] MEDS ORDERED: Versed 50 MG/ 10 Ml MDV*** 50 MG in Sodium Chloride 0.9% 250 ML 240 ML IV PRN (10:47)
[2017-07-15] MEDS ORDERED: Nimbex 200MG/20 Ml MDV (HIGH RISK MED)** 200 MG in Dextrose 5%/Water IV Soln. 250 ML 18... IV SCH (11:00)
[2017-07-15] MEDS ORDERED: Sodium Chloride 0.9% 1000 ML 1,000 ML IV SCH (11:00)
[2017-07-15 11:17] LABS: A-aADO2 558; ABG HEMOGLOBIN 15.6; ABG POTASSIUM 3.7 (3.5-5.1); ARTERIAL BLD GAS O2 SATURATION 96.9 % (95-100); ARTERIAL BLOOD GAS BASE EXCESS 0.9 (-2.0-2.0); ARTERIAL BLOOD GAS FIO2 100 %; ARTERIAL BLOOD GAS PO2 76 mmHg (75-100); ARTERIAL BLOOD GAS pH 7.28 (7.35-7.45); CARBOXYHEMOGLOBIN 2.8 % THgb (0.0-6.9); HCO3- 29.6 (22-28); HGB O2 SAT 93.2 g/dF (94-100); paO2 pAO1 0.12
[2017-07-15 11:18] LABS: ARTERIAL BLOOD GAS PCO2 63 mmHg (35-45)
[2017-07-15 11:19] LABS: ABG SITE LEFT RADIAL; ALLEN TEST OK? NO; ARTERIAL BLD GAS TIDAL VOLUME 700 cc; ARTERIAL BLOOD GAS PEEP 5 cmH2O; ARTERIAL BLOOD GAS VENT MODE AC; ARTERIAL BLOOD GAS VENT RATE 14 /MIN
[2017-07-15] MEDS ORDERED: NovoLOG Insulin SQ PRN (12:01)
[2017-07-15 14:38] VITALS: BP 118/61; PULSE 104; O2SAT 94
--- NOTE | 2017-07-15 22:51 | XRAY ---
Indication: Tube placement. Comparison: Taken earlier in the day. Portable chest demonstrates interval intubation with endotracheal tube tip 6 cm above the enoc. New NG tube traverses the chest with the tip presumed in the stomach. Stable extensive bilateral airspace opacities with small effusions again obscuring the cardiac silhouette. Comment: Preliminary interpretation was made by [facility]. No discrepancy.
--- NOTE | 2017-07-18 08:57 | ECHO ---
DATE OF PROCEDURE: 07/14/2017 CLINICAL INFORMATION: History of coronary artery bypass graft surgery. The M-mode 2D, and Doppler echocardiogram including color flow Doppler shows left ventricle is moderately dilated with a dimension of 6.4 cm. The septal wall thickness is increased at 1.2 cm. The left ventricular posterior wall thickness is increased at 1.2 cm. There is normal contractility of the left ventricle with an ejection fraction calculated at 58%. There is mild to moderate mitral regurgitation. There is no apical thrombus present. The right ventricle appears to be normal in size and function. The left atrium is moderately dilated at 5.5 cm. The right atrium is normal. The interatrial septum is intact. The aortic valve opens well. There is mild to moderate mitral regurgitation present. There is mild to moderate tricuspid regurgitation. The right ventricular systolic pressure is moderately elevated at 45 mm of Mercury. The pulmonic valve is not well visualized. The aortic root is normal at 2.8 cm. There is no pericardial effusion present. IMPRESSION: 1) NORMAL CONTRACTILITY OF THE LEFT VENTRICLE. 2) MODERATE LEFT VENTRICULAR DILATATION. 3) MILD CONCENTRIC LEFT VENTRICULAR HYPERTROPHY. 4) MILD TO MODERATE MITRAL REGURGITATION. 5) MILD TO MODERATE TRICUSPID REGURGITATION. 6) MODERATE PULMONARY HYPERTENSION. 7) MODERATE LEFT ATRIAL DILATATION.
== END 2017-07-15 14:10 | disposition home or self-care (01) | DRG 189 ==
LOC: ED 11:54 → MED SURG 17:06 → ICU 07-14 23:05
PROVIDERS: ADMIT Family Medicine; ATTEND Family Medicine
DX: J96.01 Acute respiratory failure with hypoxia (principal); J18.9 Pneumonia, unspecified organism; I25.810 Atherosclerosis of coronary artery bypass graft(s) without angina pectoris; R79.89 Other specified abnormal findings of blood chemistry; I50.9 Heart failure, unspecified; E78.5 Hyperlipidemia, unspecified; Z72.0 Tobacco use; F32.9 Major depressive disorder, single episode, unspecified; Z79.899 Other long term (current) drug therapy
CPT/HCPCS: 31500; 36000; 36415; 36600; 71045; 71046; 80048; 80053; 82375; 82803; 83605; 83880; 84484; 85025; 86701; 86702; 87040; 87070; 87077; 87186; 87389; 87631; 93005; 93306; 94002; 94150; 94640; 94660; 94760; 94799; 96360; 99285; J0330; J0456; J0696; J1650; J1940; J1956; J2060; J2250; J2543; J2930; A9270-GY

== ENCOUNTER 2019-02-16 08:02 | Emergency (ER) | payer MEDICAID, OTHER, SELFPAY ==
--- NOTE | 2019-02-16 08:39 | ERPHSYRPT ---
- History of Present Illness Time Seen by Provider: 02/16/19 08:10 Source: patient Exam Limitations: no limitations Patient Subjective Stated Complaint: pt here for sob ,sore throat, cough, fever off and on for a couple days Triage Nursing Assessment: pt walked in, resp easy, dry cough, skin w/d/p. mucus membranes moist, Physician History: Cough and chest congestion for one week. Patient's girlfriend had pneumonia last week. Timing/Duration: week(s) (1) Cough Quality/Degree: moderate Possible Cause: illness exposure Modifying Factors: Improves With: lying down Associated Symptoms: fever (last fever was two days ago), cough, shortness of breath, sore throat, wheezing, No chills, No dizziness, No earache, No facial pain, No headache, No lightheadedness, No muscle aches, No nasal congestion, No nasal drainage, No sinus infection Allergies/Adverse Reactions: No Known Drug Allergies Allergy (Verified 07/13/17 17:36) Home Medications: Metoprolol Tartrate 50 mg PO BID 01/14/13 [History] Simvastatin 40 mg PO HS 01/14/13 [History] Aspirin 81 mg PO DAILY 07/13/17 [History] Furosemide 40 mg [Lasix 40 MG] 40 mg PO DAILY 07/13/17 [History] Ibuprofen [Motrin Ib] 200 mg PO BID 07/13/17 [History] Sertraline HCl 200 mg PO DAILY 07/13/17 [History] Hydralazine HCl 25 mg DAILY 02/16/19 [History] Omeprazole Magnesium [Prilosec] 10 mg DAILY 02/16/19 [History] Trazodone HCl 50 mg [Desyrel 50 mg] 50 mg DAILY 02/16/19 [History] Hx Tetanus, Diphtheria Vaccination/Date Given: Yes Hx Influenza Vaccination/Date Given: Yes Hx Pneumococcal Vaccination/Date Given: No Immunizations Up to Date: Yes - Review of Systems Constitutional: Fever, No Chills, No Fatigue Eyes: No Eye Pain, No Vision Changes Ears, Nose, & Throat: No Ear Pain, No Ear Discharge, No Nose Congestion, No Mouth Swelling, No Throat Swelling, No Painful Swallowing Respiratory: Cough, Dyspnea, No Dyspnea on Exertion (REED) Cardiac: No Chest Pain, No Edema, No Palpitations, No Syncope Abdominal/Gastrointestinal: No Abdominal Pain, No Nausea, No Vomiting, No Hematochezia, No Melena Genitourinary Symptoms: No Dysuria, No Frequency, No Hematuria, No Flank Pain Musculoskeletal: No Back Pain, No Neck Pain Skin: No Pruritis, No Rash Neurological: No Dizziness, No Focal Weakness, No Headache, No Lethargy, No Parasthesia Endocrine: No Polydipsia, No Excessive Sweating Hematologic/Lymphatic: No Easy Bleeding, No Easy Bruising All Other Systems: Reviewed and Negative - Past Medical History Pertinent Past Medical History: Yes Neurological History: No Pertinent History ENT History: No Pertinent History Cardiac History: Coronary Artery Disease, High Cholesterol Respiratory History: Sleep Apnea Endocrine Medical History: No Pertinent History Musculoskeletal History: No Pertinent History GI Medical History: No Pertinent History History: No Pertinent History Psycho-Social History: Depression Male Reproductive Disorders: No Pertinent History - Past Surgical History Past Surgical History: Yes Neuro Surgical History: No Pertinent History Cardiac: CABG, Cardiac Catheterization Respiratory: No Pertinent History Gastrointestinal: No Pertinent History Genitourinary: No Pertinent History Musculoskeletal: Other Male Surgical History: No Pertinent History Other Surgical History: tonsils, tumors removed from leg and lymph nodes (cancer ) - Social History Smoking Status: Former smoker How long have you smoked: years Exposure to second hand smoke: No Alcohol Use: Socially Drug Use: methamphetamines Patient Lives Alone: Yes Significant Family History: heart disease, hypertension - Nursing Vital Signs Nursing Vital Signs: Initial Vital Signs Temperature 97.2 F 02/16/19 08:06 Pulse Rate 86 02/16/19 08:06 Respiratory Rate 18 02/16/19 08:06 Blood Pressure 155/92 02/16/19 08:06 O2 Sat by Pulse Oximetry 97 02/16/19 08:06 Pain Scale Pain Intensity 6 - Physical Exam General Appearance: no apparent distress, alert Eye Exam: PERRL/EOMI, eyes nml inspection, No scleral icterus Ears, Nose, Throat Exam: normal ENT inspection, TMs normal, pharynx normal, moist mucous membranes Neck Exam: normal inspection, non-tender, supple, full range of motion, No meningismus, No Brudzinski, No lymphadenopathy Respiratory Exam: airway intact, crackles/rales, wheezing, No chest tenderness, No respiratory distress, No diminished breath sounds, No accessory muscle use, No prolonged expirations, No rhonchi, No stridor Cardiovascular Exam: regular rate/rhythm, normal heart sounds, normal peripheral pulses, capillary refill <2 sec Gastrointestinal/Abdomen Exam: soft, normal bowel sounds, No tenderness, No guarding, No rebound Back Exam: normal inspection, normal range of motion, No CVA tenderness, No vertebral tenderness, No rash Extremity Exam: normal inspection, normal range of motion, pelvis stable, No calf tenderness, No lacerations, No swelling Neurologic Exam: alert, oriented x 3, cooperative, 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-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 nml as tested, normal mood/affect, sensation nml, No motor deficits, No motor weakness Skin Exam: normal color, warm, dry, No rash, No petechiae, No jaundice, No cyanosis SpO2 Interpretation: normal SpO2: 97 O2 Delivery: Room Air - Course Nursing assessment & vital signs reviewed: Yes EKG Interpreted by Me: RATE, Sinus Rhythm, NORMAL AXIS, NORMAL INTERVALS, NORMAL QRS, NORMAL ST-T, Other (no change in comparison to EKG from 07/15/2017) - Radiology Exams Chest X-ray Interpretation: Interpreted by me, Reviewed by me, No Fracture, Infiltrates, Pneumonia, Other (bilateral lower lobe pneumonia with large consolidation on the left lower lung; RLL infiltrate and RML infiltrate) Ordered Tests: Active Orders 24 hr Category Date Time Status Director Of Managed Care STAT Care 02/16/19 09:37 Active EKG-ER Only STAT Care 02/16/19 09:34 Active IV Insertion STAT Care 02/16/19 09:34 Active Pulse Oximetry (ED) STAT Care 02/16/19 09:34 Active CHEST 1 VIEW (PORTABLE) Stat Exams 02/16/19 08:34 Taken AMYLASE Routine Lab 02/16/19 09:45 Completed CBC W DIFF Stat Lab 02/16/19 10:00 Completed CMP Routine Lab 02/16/19 09:45 Completed CULTURE,URINE Stat Lab 02/16/19 09:37 Uncollected LIPASE Routine Lab 02/16/19 09:45 Completed Lactic Acid Stat Lab 02/16/19 10:10 Completed NT PRO BNP Routine Lab 02/16/19 09:45 Completed PROTIME WITH INR Stat Lab 02/16/19 10:00 Completed PTT Stat Lab 02/16/19 10:00 Completed TROPONIN Q3H Lab 02/16/19 09:45 Completed TROPONIN Q3H Lab 02/16/19 12:45 Ordered TROPONIN Q3H Lab 02/16/19 15:45 Ordered TROPONIN Q3H Lab 02/16/19 18:45 Ordered TROPONIN Q3H Lab 02/16/19 21:45 Ordered UA W/RFX UR CULTURE Stat Lab 02/16/19 09:37 Uncollected VBG [VENOUS BLOOD GAS] Stat Lab 02/16/19 10:10 Completed Respiratory Therapy Assessment DAILY RT 02/16/19 09:11 Active Medication Summary Discontinued Medications Generic Name Dose Route Start Last Admin Trade Name Aroldoq PRN Reason Stop Dose Admin Albuterol/Ipratropium 3 ml 02/16/19 08:34 02/16/19 09:11 Duoneb 0.5-3 Mg/3 Ml Neb IH 02/16/19 08:35 3 ml STAT ONE Administration Albuterol/Ipratropium Confirm 02/16/19 09:09 Duoneb 0.5-3 Mg/3 Ml Neb Administered 02/16/19 09:10 Dose 3 ml IH .STK-MED ONE Azithromycin 500 mg 02/16/19 10:05 02/16/19 10:32 Zithromax 250 Mg Tablet PO 02/16/19 10:06 500 mg STAT ONE Administration Azithromycin Confirm 02/16/19 10:28 Zithromax 250 Mg Tablet Administered 02/16/19 10:29 Dose 500 mg .ROUTE .STK-MED ONE Ceftriaxone Sodium/Dextrose 1 g in 50 mls @ 100 mls/hr 02/16/19 09:34 10:48 Rocephin 1 Gm-D5w 50 Ml Bag IV 02/16/19 10:03 Infused STAT STA Infusion Sodium Chloride 1,000 mls @ 999 mls/hr 02/16/19 09:34 02/16/19 10:04 Sodium Chloride 0.9% 1000 Ml IV 02/16/19 10:34 999 mls/hr .Q1H1M STA Administration Sodium Chloride Confirm 02/16/19 09:51 Sodium Chloride 0.9% 1000 Ml Administered 02/16/19 09:52 Dose 1,000 mls @ ud .ROUTE .STK-MED ONE Ceftriaxone Sodium/Dextrose Confirm 02/16/19 09:51 Rocephin 1 Gm-D5w 50 Ml Bag Administered 02/16/19 09:52 Dose 1 g in 50 mls @ ud IV .STK-MED ONE Lab/Rad Data: Laboratory Result Diagrams 02/16/19 10:00 02/16/19 09:45 Laboratory Results 02/16/19 02/16/19 02/16/19 Range/Units 10:10 10:00 10:00 WBC 7.0 (4.0-10.5) K/mm3 RBC 5.11 (4.1-5.6) M/mm3 Hgb 15.4 (12.5-18.0) gm/dl Hct 44.6 (42-50) % MCV 87.3 (78-100) fl MCH 30.1 (26-32) pg MCHC 34.5 (32-36) g/dl RDW 13.7 (11.5-14.0) % Plt Count 204 (150-450) K/mm3 MPV 10.8 H (6-9.5) fl Gran % 64.7 (36.0-66.0) % Eos # (Auto) 0.21 (0-0.5) Absolute Lymphs (auto) 1.45 (1.0-4.6) Absolute Monos (auto) 0.76 (0.0-1.3) Lymphocytes % 20.8 L (24.0-44.0) % Monocytes % 10.9 (0.0-12.0) % Eosinophils % 3.0 (0.00-5.0) % Basophils % 0.6 (0.0-0.4) % Absolute Granulocytes 4.51 (1.4-6.9) Basophils # 0.04 (0-0.4) PT 13.1 H (8.83-12.87) SECONDS INR 1.16 (0.8-3.0) APTT 31.3 (24.1-36.1) SECONDS pO2/FiO2 Ratio 21.0 VBG pH 7.41 VBG pCO2 at Pat Temp 42 VBG pO2 at Pat Temp 33 VBG HCO3 26.6 VBG O2 Sat (Deb) 69.8 L VBG Base Excess 1.6 VBG Hemoglobin 15.7 VBG Carboxyhemoglobin 4.3 POC Potassium 4.2 Sodium (137-145) mmol/L Potassium (3.5-5.1) mmol/L Chloride (98-107) mmol/L Carbon Dioxide (22-30) mmol/L Anion Gap (5-15) MEQ/L BUN (9-20) mg/dL Creatinine (0.66-1.25) mg/dL Estimated GFR ML/MIN Glucose (74-106) mg/dL Lactic Acid 1.5 Calcium (8.4-10.2) mg/dL Total Bilirubin (0.2-1.3) mg/dL AST (17-59) U/L ALT (0-50) U/L Alkaline Phosphatase (38-126) U/L Troponin I (0.000-0.034) ng/mL NT-Pro-B Natriuret Pep (0-900) pg/mL Serum Total Protein (6.3-8.2) g/dL Albumin (3.5-5.0) g/dL Amylase (30-110) U/L Lipase (23-300) U/L Group A Strep Antibody (NEGATIVE) 02/16/19 02/16/19 02/16/19 Range/Units 09:45 09:35 09:35 WBC (4.0-10.5) K/mm3 RBC (4.1-5.6) M/mm3 Hgb (12.5-18.0) gm/dl Hct (42-50) % MCV (78-100) fl MCH (26-32) pg MCHC (32-36) g/dl RDW (11.5-14.0) % Plt Count (150-450) K/mm3 MPV (6-9.5) fl Gran % (36.0-66.0) % Eos # (Auto) (0-0.5) Absolute Lymphs (auto) (1.0-4.6) Absolute Monos (auto) (0.0-1.3) Lymphocytes % (24.0-44.0) % Monocytes % (0.0-12.0) % Eosinophils % (0.00-5.0) % Basophils % (0.0-0.4) % Absolute Granulocytes (1.4-6.9) Basophils # (0-0.4) PT (8.83-12.87) SECONDS INR (0.8-3.0) APTT (24.1-36.1) SECONDS pO2/FiO2 Ratio Cancelled VBG pH Cancelled VBG pCO2 at Pat Temp Cancelled VBG pO2 at Pat Temp Cancelled VBG HCO3 Cancelled VBG O2 Sat (Deb) Cancelled VBG Base Excess Cancelled VBG Hemoglobin Cancelled VBG Carboxyhemoglobin Cancelled POC Potassium Cancelled Sodium 140 (137-145) mmol/L Potassium 4.3 (3.5-5.1) mmol/L Chloride 105 (98-107) mmol/L Carbon Dioxide 27 (22-30) mmol/L Anion Gap 12.0 (5-15) MEQ/L BUN 19 (9-20) mg/dL Creatinine 0.58 L (0.66-1.25) mg/dL Estimated GFR > 60.0 ML/MIN Glucose 141 H (74-106) mg/dL Lactic Acid Cancelled Calcium 9.3 (8.4-10.2) mg/dL Total Bilirubin 0.60 (0.2-1.3) mg/dL AST 26 (17-59) U/L ALT 23 (0-50) U/L Alkaline Phosphatase 55 (38-126) U/L Troponin I < 0.012 (0.000-0.034) ng/mL NT-Pro-B Natriuret Pep 424 (0-900) pg/mL Serum Total Protein 7.3 (6.3-8.2) g/dL Albumin 3.7 (3.5-5.0) g/dL Amylase 60 (30-110) U/L Lipase 75 (23-300) U/L Group A Strep Antibody (NEGATIVE) 02/16/19 Range/Units 08:30 WBC (4.0-10.5) K/mm3 RBC (4.1-5.6) M/mm3 Hgb (12.5-18.0) gm/dl Hct (42-50) % MCV (78-100) fl MCH (26-32) pg MCHC (32-36) g/dl RDW (11.5-14.0) % Plt Count (150-450) K/mm3 MPV (6-9.5) fl Gran % (36.0-66.0) % Eos # (Auto) (0-0.5) Absolute Lymphs (auto) (1.0-4.6) Absolute Monos (auto) (0.0-1.3) Lymphocytes % (24.0-44.0) % Monocytes % (0.0-12.0) % Eosinophils % (0.00-5.0) % Basophils % (0.0-0.4) % Absolute Granulocytes (1.4-6.9) Basophils # (0-0.4) PT (8.83-12.87) SECONDS INR (0.8-3.0) APTT (24.1-36.1) SECONDS pO2/FiO2 Ratio VBG pH VBG pCO2 at Pat Temp VBG pO2 at Pat Temp VBG HCO3 VBG O2 Sat (Deb) VBG Base Excess VBG Hemoglobin VBG Carboxyhemoglobin POC Potassium Sodium (137-145) mmol/L Potassium (3.5-5.1) mmol/L Chloride (98-107) mmol/L Carbon Dioxide (22-30) mmol/L Anion Gap (5-15) MEQ/L BUN (9-20) mg/dL Creatinine (0.66-1.25) mg/dL Estimated GFR ML/MIN Glucose (74-106) mg/dL Lactic Acid Calcium (8.4-10.2) mg/dL Total Bilirubin (0.2-1.3) mg/dL AST (17-59) U/L ALT (0-50) U/L Alkaline Phosphatase (38-126) U/L Troponin I (0.000-0.034) ng/mL NT-Pro-B Natriuret Pep (0-900) pg/mL Serum Total Protein (6.3-8.2) g/dL Albumin (3.5-5.0) g/dL Amylase (30-110) U/L Lipase (23-300) U/L Group A Strep Antibody NEGATIVE (NEGATIVE) - Progress Progress: re-examined Air Movement: good Progress Note: 02/16/19 09:39 Increased airflow throughout, but crackles/rales with wheezing appreciated Blood Culture(s) Obtained: Yes Antibiotics given: Yes Discussed with Dr.: Other (Dr Peralta, Hospitalist at [facility] in [place], [place]. Dr Peralta accepted the patient for admission to the [facility].) Counseled pt/family regarding: lab results, diagnosis, need for follow-up, rad results - Departure Departure Disposition: Transfer ([facility] in [place], [place]) Clinical Impression: SOB (shortness of breath), Cough in adult Bilateral pneumonia Qualifiers: Pneumonia type: due to unspecified organism Lung location: lower lobe of lung Qualified Code(s): J18.1 - Lobar pneumonia, unspecified organism Acute bronchitis Qualifiers: Bronchitis organism: unspecified organism Qualified Code(s): J20.9 - Acute bronchitis, unspecified Condition: Fair Critical Care Time: No Referrals: DOCTOR,NO FAMILY [Primary Care Provider] -
[2019-02-16] MEDS ORDERED: DUONEB 0.5-3 MG/3 ml Neb IH ONE (09:09)
[2019-02-16] MEDS: DUONEB 0.5-3 MG/3 ml Neb IH ONE (09:11)
[2019-02-16] MEDS ORDERED: Sodium Chloride 0.9% 1000 ML 1,000 ML ONE (09:51)
[2019-02-16] MEDS ORDERED: ROCEPHIN 1 Gm-D5w 50 ml Bag** 1 G/50 ML IVPB IV ONE (09:51)
[2019-02-16] MEDS: Sodium Chloride 0.9% 1000 ML 1,000 ML IV STA (10:04)
[2019-02-16] MEDS: ROCEPHIN 1 Gm-D5w 50 ml Bag** 1 G/50 ML IVPB IV STA (10:05)
[2019-02-16 10:09] LABS: Absolute Neutrophil Ct (ANC) 4.51 (1.4-6.9); BASOPHIL % 0.6 % (0.0-0.4); Basophil (Absolute #) 0.04 (0-0.4); Eosinophil (Absolute #) 0.21 (0-0.5); Hematocrit 44.6 % (42-50); Hemoglobin 15.4 gm/dl (12.5-18.0); Lymphocyte (Absolute #) 1.45 (1.0-4.6); Lymphocytes % 20.8 % (24.0-44.0); Mean Cell Volume 87.3 fl (78-100); Mean Corpuscular Hemoglobin 30.1 pg (26-32); Mean Corpuscular Hgb Concent. 34.5 g/dl (32-36); Mean Platelet Volume 10.8 fl (6-9.5); Monocyte (Absolute #) 0.76 (0.0-1.3); Monocytes % 10.9 % (0.0-12.0); Neutrophil % 64.7 % (36.0-66.0); Platelet Count 204 K/mm3 (150-450); Red Blood Count 5.11 M/mm3 (4.1-5.6); Red Cell Distribution Width 13.7 % (11.5-14.0)
[2019-02-16 10:13] LABS: Lactic Acid 1.5 (0.4-2.0); VBG BASE EXCESS 1.6 (-2.0-2.0); VBG CARBOXYHEMOGLOBIN 4.3 % T HGB (0.0-6.9); VBG HCO3- 26.6 meq/L (22-28); VBG HEMOGLOBIN 15.7; VBG O2 SATURATION 69.8 (95-100); VBG POTASSIUM 4.2 (3.5-5.1); VBG pH 7.41 (7.32-7.42)
[2019-02-16 10:19] LABS: INR 1.16 (0.8-3.0); PROTIME 13.1 SECONDS (8.83-12.87)
[2019-02-16 10:22] LABS: PTT 31.3 SECONDS (24.1-36.1)
[2019-02-16] MEDS ORDERED: Zithromax 250 MG TABLET ONE (10:28)
[2019-02-16] MEDS: Zithromax 250 MG TABLET PO ONE (10:32)
[2019-02-16 10:38] LABS: ALBUMIN 3.7 g/dL (3.5-5.0); ALKALINE PHOSPHATASE 55 U/L (38-126); AMYLASE 60 U/L (30-110); BLOOD UREA NITROGEN 19 mg/dL (9-20); CHLORIDE 105 mmol/L (98-107); Calcium 9.3 mg/dL (8.4-10.2); Carbon Dioxide 27 mmol/L (22-30); Creatinine 1 0.58 mg/dL (0.66-1.25); Glucose 141 mg/dL (74-106); LIPASE 75 U/L (23-300); NT PRO BNP 424 pg/mL (0-900); Potassium 4.3 mmol/L (3.5-5.1); SGOT/AST 26 U/L (17-59); SGPT/ALT 23 U/L (0-50); SODIUM 140 mmol/L (137-145); TROPONIN < 0.012 ng/mL (0.000-0.034); Total Protein 7.3 g/dL (6.3-8.2)
[2019-02-16 11:46] VITALS: BP 138/78; PULSE 78; O2SAT 96
--- NOTE | 2019-02-16 19:12 | XRAY ---
Indication: Chest pain and short of breath. History pneumonia. Comparison: July 15, 2017. Portable chest again demonstrates diffuse bilateral airspace opacities, left greater than right without consolidation/large effusion. Cardiac silhouette is again obscured with previous CABG. Bony thorax grossly intact.
== END 2019-02-16 11:50 | disposition short-term general hospital (02) ==
LOC: ED 08:02
DX: J18.1 Lobar pneumonia, unspecified organism (principal); J20.9 Acute bronchitis, unspecified; R03.0 Elevated blood-pressure reading, without diagnosis of hypertension; I25.10 Atherosclerotic heart disease of native coronary artery without angina pectoris; E78.00 Pure hypercholesterolemia, unspecified; F32.9 Major depressive disorder, single episode, unspecified; Z79.899 Other long term (current) drug therapy; G47.30 Sleep apnea, unspecified
CPT/HCPCS: 36000; 36415; 71045; 80053; 82150; 82805; 83605; 83690; 83880; 84484; 85025; 85610; 85730; 87651; 93005; 93041; 94640; 94760; 96365; 99285; J0696; A9270-GY

== ENCOUNTER 2019-07-27 20:00 | Emergency (ER) | payer OTHER ==
[2019-07-27] MEDS ORDERED: BABY ASPIRIN 81 MG CHEW PO ONE (20:02)
[2019-07-27] MEDS ORDERED: PLAVIX 75 MG Tablet PO ONE (20:02)
[2019-07-27] MEDS ORDERED: Sodium Chloride 0.9% 1000 ML 1,000 ML IV STA (20:02)
[2019-07-27 20:11] LABS: Absolute Neutrophil Ct (ANC) 6.85 (1.4-6.9); BASOPHIL % 0.7 % (0.0-0.4); Basophil (Absolute #) 0.07 (0-0.4); Eosinophil (Absolute #) 0.42 (0-0.5); Hematocrit 48.1 % (42-50); Hemoglobin 16.6 gm/dl (12.5-18.0); Lymphocyte (Absolute #) 2.49 (1.0-4.6); Lymphocytes % 23.7 % (24.0-44.0); Mean Cell Volume 83.5 fl (78-100); Mean Corpuscular Hemoglobin 28.8 pg (26-32); Mean Corpuscular Hgb Concent. 34.5 g/dl (32-36); Mean Platelet Volume 10.7 fl (7.5-11.0); Monocyte (Absolute #) 0.66 (0.0-1.3); Monocytes % 6.3 % (0.0-12.0); Neutrophil % 65.3 % (36.0-66.0); Platelet Count 217 K/mm3 (150-450); Red Blood Count 5.76 M/mm3 (4.1-5.6); Red Cell Distribution Width 14.8 % (11.5-14.0); White Blood Count 10.5 K/mm3 (4.0-10.5)
[2019-07-27 20:18] LABS: INR 1.15 (0.8-3.0)
[2019-07-27] MEDS ORDERED: Sodium Chloride 0.9% 1000 ML 1,000 ML ONE (20:18)
[2019-07-27] MEDS ORDERED: PLAVIX 75 MG Tablet ONE (20:18)
[2019-07-27] MEDS ORDERED: BABY ASPIRIN 81 MG CHEW ONE (20:18)
[2019-07-27 20:21] LABS: PTT 34.1 SECONDS (24.1-36.1)
[2019-07-27 20:22] LABS: ALBUMIN 4.3 g/dL (3.5-5.0); ALKALINE PHOSPHATASE 81 U/L (38-126); ANION GAP 15.3 MEQ/L (5-15); BLOOD UREA NITROGEN 16 mg/dL (9-20); CHLORIDE 105 mmol/L (98-107); Calcium 9.9 mg/dL (8.4-10.2); Carbon Dioxide 24 mmol/L (22-30); Glucose 141 mg/dL (74-106); Potassium 3.9 mmol/L (3.5-5.1); SGOT/AST 40 U/L (17-59); SGPT/ALT 46 U/L (0-50); SODIUM 140 mmol/L (137-145)
--- NOTE | 2019-07-27 20:43 | ERPHSYRPT ---
- History of Present Illness Time Seen by Provider: 07/27/19 20:34 Source: patient, EMS Exam Limitations: no limitations Patient Subjective Stated Complaint: pt states while sitting in the chair watching tv, he began having lt sided weakness and numbness around his mouth Triage Nursing Assessment: pt awake and alert, answers questions approp. pt arrive per ambulance, transfer to [facility] with assist of 4. respirations nonlabored with lungs cta. mild facial droop noted to lt, weakness to lt upper and lower ext noted. pupils equal and reactive Physician History: pt states while sitting in the chair watching tv, he began having lt sided weakness and numbness around his mouth Time of Onset/Last Time Seen Normal: pt states while sitting in the chair watching tv, he began having lt sided Timing/Duration: today Severity: mild Character of Deficits: new weakness, altered sensation, LLE Deficits: no difficulties Baseline/Normal Cognition: alert oriented x 3 Current Cognition: alert oriented x 3 Associated Symptoms: weakness, numbness/tingling in legs/feet, No confusion, No fatigue, No fever, No chills, No loss of consciousness, No muscle spasms, No paresthesia, No ringing in ears, No seizures, No slurred speech, No vision changes, No chest pain Allergies/Adverse Reactions: No Known Drug Allergies Allergy (Verified 07/13/17 17:36) Home Medications: Metoprolol Tartrate 50 mg PO BID 01/14/13 [History] Simvastatin 40 mg PO HS 01/14/13 [History] Aspirin 81 mg PO DAILY 07/13/17 [History] Furosemide 40 mg [Lasix 40 MG] 40 mg PO DAILY 07/13/17 [History] Ibuprofen [Motrin Ib] 200 mg PO BID 07/13/17 [History] Sertraline HCl 200 mg PO DAILY 07/13/17 [History] Hydralazine HCl 25 mg DAILY 02/16/19 [History] Omeprazole Magnesium [Prilosec] 10 mg DAILY 02/16/19 [History] Trazodone HCl 50 mg [Desyrel 50 mg] 50 mg DAILY 02/16/19 [History] Hx Tetanus, Diphtheria Vaccination/Date Given: Yes Hx Influenza Vaccination/Date Given: Yes Hx Pneumococcal Vaccination/Date Given: No Travel Risk - International Travel Have you traveled outside of the country in past 3 weeks: No Have you or anyone close to you been diagnosed with or: No Do your reside in a community with a known COVID-19 case?: Yes If Yes where:: [facility] - Coronavirus Screening Has patient experienced Coronavirus symptoms: No - Review of Systems Constitutional: Weakness, No Fever, No Chills Eyes: No Symptoms Ears, Nose, & Throat: No Symptoms Respiratory: No Cough, No Dyspnea Cardiac: No Chest Pain, No Edema, No Syncope Abdominal/Gastrointestinal: No Abdominal Pain, No Nausea, No Vomiting, No Diarrhea Genitourinary Symptoms: No Dysuria Musculoskeletal: No Back Pain, No Neck Pain Skin: No Rash Neurological: Focal Weakness, Gait Changes, Sensory Changes, No Dizziness, No Headache, No Paralysis, No Parasthesia, No Seizure, No Speech Changes Psychological: No Symptoms Endocrine: No Symptoms All Other Systems: Reviewed and Negative - Past Medical History Pertinent Past Medical History: Yes Neurological History: No Pertinent History ENT History: No Pertinent History Cardiac History: Coronary Artery Disease, High Cholesterol, Hypertension Respiratory History: Sleep Apnea Endocrine Medical History: No Pertinent History Musculoskeletal History: No Pertinent History GI Medical History: No Pertinent History History: No Pertinent History Psycho-Social History: Depression Male Reproductive Disorders: No Pertinent History 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 - Social History Smoking Status: Former smoker How long have you smoked: years Exposure to second hand smoke: No Alcohol Use: Socially Drug Use: none Patient Lives Alone: Yes Significant Family History: heart disease, hypertension - Nursing Vital Signs Nursing Vital Signs: Initial Vital Signs Pulse Rate 71 07/27/19 20:19 Respiratory Rate 20 07/27/19 20:19 Blood Pressure 161/89 07/27/19 20:19 O2 Sat by Pulse Oximetry 95 07/27/19 20:19 Pain Scale Pain Intensity 0 - [place] Coma Scale Best Eye Response (Laura): (4) open spontaneously Best Verbal Response ([place]): (5) oriented Best Motor Response ([place]): (6) obeys commands [place] Total: 15 - Physical Exam General Appearance: no apparent distress, alert Eye Exam: bilateral eye: PERRL, EOMI Ears, Nose, Throat Exam: normal ENT inspection, moist mucous membranes Neck Exam: normal inspection, non-tender, supple Respiratory: normal breath sounds, lungs clear, airway intact, No respiratory distress Cardiovascular: regular rate/rhythm, No edema Gastrointestinal: soft, No tenderness, No distention Back Exam: normal inspection Extremity Exam: normal inspection, No pedal edema Mental Status: alert, 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 Exam: normal speech, PERRL, tongue midline Coordination/Gait: normal finger to nose Motor/Sensory: sensory deficit (minimal), weak motor strength LLE Skin Exam: normal color, warm, dry, No rash SpO2 Interpretation: normal SpO2: 95 O2 Delivery: Room Air - Course Nursing assessment & vital signs reviewed: Yes EKG Interpreted by Me: Non-specific ST Changes - CT Exams Head CT Interpretation: Discussed w/radiologist, No/Intracranial Hemorrhag (no stroke ) Ordered Tests: Active Orders 24 hr Category Date Time Status Field Contractor STAT Care 07/27/19 20:03 Active EKG-ER Only STAT Care 07/27/19 20:02 Active NPO (ED) STAT Care 07/27/19 20:02 Active Oxygen-ED Only Nasal Cannula 2 lpm Care 07/27/19 20:02 Active HEAD WITHOUT CONTRAST [CT] Stat Exams 07/27/19 20:01 Taken CBC W DIFF Stat Lab 07/27/19 20:02 Completed CMP Stat Lab 07/27/19 20:02 Completed PROTIME WITH INR Stat Lab 07/27/19 20:02 Completed PTT Stat Lab 07/27/19 20:02 Completed TROPONIN Stat Lab 07/27/19 20:02 Completed UA W/RFX UR CULTURE Stat Lab 07/27/19 20:02 Uncollected Medication Summary Generic Name Dose Route Start Last Admin Trade Name Freq PRN Reason Stop Dose Admin Sodium Chloride 1,000 mls @ 999 mls/hr 07/27/19 20:02 07/27/19 20:20 Sodium Chloride 0.9% 1000 Ml IV 07/27/19 21:02 999 mls/hr .Q1H1M STA Administration Discontinued Medications Generic Name Dose Route Start Last Admin Trade Name Freq PRN Reason Stop Dose Admin Aspirin 81 mg 07/27/19 20:02 07/27/19 20:20 Baby Aspirin 81 Mg Chew PO 07/27/19 20:03 81 mg STAT ONE Administration Aspirin Confirm 07/27/19 20:18 Baby Aspirin 81 Mg Chew Administered 07/27/19 20:19 Dose 81 mg .ROUTE .STK-MED ONE Clopidogrel Bisulfate 75 mg 07/27/19 20:02 07/27/19 20:20 Plavix 75 Mg Tablet PO 07/27/19 20:03 75 mg STAT ONE Administration Clopidogrel Bisulfate Confirm 07/27/19 20:18 Plavix 75 Mg Tablet Administered 07/27/19 20:19 Dose 75 mg .ROUTE .STK-MED ONE Sodium Chloride Confirm 07/27/19 20:18 Sodium Chloride 0.9% 1000 Ml Administered 07/27/19 20:19 Dose 1,000 mls @ ud .ROUTE .STK-MED ONE Lab/Rad Data: Laboratory Result Diagrams 07/27/19 20:02 07/27/19 20:02 Laboratory Results 07/27/19 07/27/19 07/27/19 Range/Units 20:02 20:02 20:02 WBC 10.5 (4.0-10.5) K/mm3 RBC 5.76 H (4.1-5.6) M/mm3 Hgb 16.6 (12.5-18.0) gm/dl Hct 48.1 (42-50) % MCV 83.5 (78-100) fl MCH 28.8 (26-32) pg MCHC 34.5 (32-36) g/dl RDW 14.8 H (11.5-14.0) % Plt Count 217 (150-450) K/mm3 MPV 10.7 (7.5-11.0) fl Gran % 65.3 (36.0-66.0) % Eos # (Auto) 0.42 (0-0.5) Absolute Lymphs (auto) 2.49 (1.0-4.6) Absolute Monos (auto) 0.66 (0.0-1.3) Lymphocytes % 23.7 L (24.0-44.0) % Monocytes % 6.3 (0.0-12.0) % Eosinophils % 4.0 (0.00-5.0) % Basophils % 0.7 (0.0-0.4) % Absolute Granulocytes 6.85 (1.4-6.9) Basophils # 0.07 (0-0.4) PT 13.0 H (8.83-12.87) SECONDS INR 1.15 (0.8-3.0) APTT 34.1 (24.1-36.1) SECONDS Sodium 140 (137-145) mmol/L Potassium 3.9 (3.5-5.1) mmol/L Chloride 105 (98-107) mmol/L Carbon Dioxide 24 (22-30) mmol/L Anion Gap 15.3 H (5-15) MEQ/L BUN 16 (9-20) mg/dL Creatinine 0.70 (0.66-1.25) mg/dL Estimated GFR > 60.0 ML/MIN Glucose 141 H (74-106) mg/dL Calcium 9.9 (8.4-10.2) mg/dL Total Bilirubin 0.60 (0.2-1.3) mg/dL AST 40 (17-59) U/L ALT 46 (0-50) U/L Alkaline Phosphatase 81 (38-126) U/L Serum Total Protein 8.0 (6.3-8.2) g/dL Albumin 4.3 (3.5-5.0) g/dL - Progress Progress: unchanged Discussed with : Other (Dr Zendejas Hospitalist service at [facility]) Will see patient in: other ([facility]) Counseled pt/family regarding: lab results, diagnosis, need for follow-up, rad results - Departure Departure Disposition: Transfer ([facility], Dr Zendejas hospitalist service) Clinical Impression: Hx of CABG, TIA (transient ischemic attack) Condition: Fair Critical Care Time: Yes Critical Care Time(excluding separately billable procedures): Critical 30-74 mins Referrals: DOCTOR,NO FAMILY [Primary Care Provider] - Instructions: Transient Ischemic Attack (DC)
[2019-07-27 21:20] VITALS: O2SAT 97
[2019-07-27 22:10] VITALS: BP 133/94; PULSE 67
--- NOTE | 2019-07-28 08:37 | XRAY ---
Indication: Left-sided weakness. Multiple contiguous axial images obtained through the head without contrast. Comparison: None Age-appropriate global atrophy and minimal periventricular degenerative micro-ischemia bilaterally. Small remote lacunar infarct right mid centrum semiovale near the vertex. No acute intracranial hemorrhage, abnormal extra-axial fluid collection, or mass effect. Fourth ventricle is midline without hydrocephalus. Hill-white matter differentiation is preserved. Bony calvarium intact. Mild mucosal thickening of both ethmoid and lesser degree right frontal sinuses. Mastoid air cells are clear. Impression: 1. Atrophy and degenerative micro-ischemia within normal limits for patient's age. Remote lacunar infarct right centrum semiovale. 2. No acute intracranial abnormalities. 3. Incidental paranasal sinus disease. Comment: Preliminary interpretation was made by [facility]. No critical discrepancy.
== END 2019-07-27 22:08 | disposition short-term general hospital (02) ==
LOC: ED 20:00
DX: G45.9 Transient cerebral ischemic attack, unspecified (principal); I25.810 Atherosclerosis of coronary artery bypass graft(s) without angina pectoris; I10 Essential (primary) hypertension; E78.00 Pure hypercholesterolemia, unspecified; G47.30 Sleep apnea, unspecified; F32.9 Major depressive disorder, single episode, unspecified; I51.9 Heart disease, unspecified
CPT/HCPCS: 36415; 70450; 80053; 84484; 85025; 85610; 85730; 93005; 93041; 96360; 99285; 99291; A9270-GY

== ENCOUNTER 2019-09-16 20:40 | Emergency (ER) | payer OTHER ==
[2019-09-16 20:58] VITALS: O2SAT 97
[2019-09-16] MEDS ORDERED: TORAdol 30 mg Injection IM ONE (21:15)
[2019-09-16] MEDS ORDERED: TORAdol 30 mg Injection ONE (21:21)
--- NOTE | 2019-09-16 21:23 | ERPHSYRPT ---
- History of Present Illness Source: patient Exam Limitations: no limitations Patient Subjective Stated Complaint: pt fell at [facility] today in parking lot at 11:00 am Triage Nursing Assessment: pt fell in parking lot today at 11:00 am, states, "I hit my right hip, my back and my head". Pt did not lose consciousness. Pt went home and took a muscle relaxor, used heat pad and ice but only got minimal relief. Pt hx of stroke in July,, so ambulation and balance is impaired. Physician History: 49 yo wm w dense L hemiparesis s/p CVA 08/26/19 presents w lumbar pain s/o mechanical fall from scooter at [facility]. Pt denies LOC/new focal weakness/chest pain/dyspnea/MCKEON/cervical pain. Pain 11/24 and does not radiate. Occurred: other (10hrs) Reason for Fall: slipped (Slipped off scooter at [facility]) Injuries/Pain Location: lower Loss of Consciousness: no loss of consciousness Quality: sharpness, throbbing Severity of Pain-Max: severe Severity of Pain-Current: severe Modifying Factors: Improves With: movement Associated Symptoms (Fall): back pain, trouble walking, No abdominal pain, No confusion, No chest pain, No dizziness, No extremity injury, No headache, No lightheadedness, No muscle spasms, No nausea, No neck pain, No ringing in ears, No seizures, No shortness of breath, No slurred speech, No vomiting, No vision changes Allergies/Adverse Reactions: No Known Drug Allergies Allergy (Verified 09/16/19 21:07) Home Medications: Metoprolol Tartrate 50 mg PO BID 01/14/13 [History] Aspirin 81 mg PO DAILY 07/13/17 [History] Furosemide 40 mg [Lasix 40 MG] 40 mg PO DAILY 07/13/17 [History] Sertraline HCl 200 mg PO DAILY 07/13/17 [History] Trazodone HCl 50 mg [Desyrel 50 mg] 50 mg PO HS 02/16/19 [History] Clopidogrel Bisulfate 75 mg [PLAVIX 75 MG Tablet] 75 mg PO DAILY 07/27/19 [History] Atorvastatin Calcium 40 mg PO HS 09/16/19 [History] lisinopriL [Zestril] 2.5 mg PO BID 09/16/19 [History] Hx Tetanus, Diphtheria Vaccination/Date Given: Yes Hx Influenza Vaccination/Date Given: Yes Hx Pneumococcal Vaccination/Date Given: Yes Immunizations Up to Date: Yes Travel Risk - International Travel Have you traveled outside of the country in past 3 weeks: No Have you or anyone close to you been diagnosed with or: No Do your reside in a community with a known COVID-19 case?: Yes If Yes where:: [place] - Coronavirus Screening Has patient experienced Coronavirus symptoms: No - Review of Systems Constitutional: No Symptoms Eyes: No Symptoms Ears, Nose, & Throat: No Symptoms Respiratory: No Symptoms Cardiac: No Symptoms Abdominal/Gastrointestinal: No Symptoms Genitourinary Symptoms: No Symptoms Musculoskeletal: Back Pain Skin: No Symptoms Neurological: No Symptoms Psychological: No Symptoms Endocrine: No Symptoms Hematologic/Lymphatic: No Symptoms Immunological/Allergic: No Symptoms - Past Medical History Pertinent Past Medical History: Yes Neurological History: No Pertinent History ENT History: No Pertinent History Cardiac History: Congestive Heart Failure, Coronary Artery Disease, High Cholesterol, Hypertension, Myocardial Infarction (OR) Respiratory History: Pneumonia, Sleep Apnea Endocrine Medical History: No Pertinent History Musculoskeletal History: No Pertinent History GI Medical History: Diverticulitis History: No Pertinent History Psycho-Social History: Depression Male Reproductive Disorders: No Pertinent History 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 - Social History Smoking Status: Former smoker How long have you smoked: years Exposure to second hand smoke: Yes Alcohol Use: Socially Drug Use: none Patient Lives Alone: No Significant Family History: heart disease, hypertension - Nursing Vital Signs Nursing Vital Signs: Initial Vital Signs Temperature 97.9 F 09/16/19 20:49 Pulse Rate 65 09/16/19 20:49 Respiratory Rate 20 09/16/19 20:49 Blood Pressure 140/76 09/16/19 20:49 O2 Sat by Pulse Oximetry 97 09/16/19 20:49 Pain Scale Pain Intensity 8 - [place] Coma Score Best Eye Response (Laura): (4) open spontaneously Best Verbal Response (Laura): (5) oriented Best Motor Response ([place]): (6) obeys commands [place] Total: 15 - Physical Exam General Appearance: no apparent distress Head Injury: no evidence of injury Eye Exam: PERRL/EOMI, eyes nml inspection ENT Exam: airway nml, No evidence of ENT injury Neck Exam: supple, trachea midline, full range of motion, normal inspection Respiratory/Chest Exam: normal breath sounds, No respiratory distress, No ecchymosis Cardiovascular Exam: normal heart sounds, regular rate/rhythm, No murmur Gastrointestinal Exam: soft, normal bowel sounds, No tenderness Back Exam: other (Lumbar spine ttp) Extremity Exam: normal inspection, pelvis stable Neurologic Exam: alert, oriented x 3, cooperative, normal mood/affect, other ( Chronic dense L hemiparesis) SpO2 Interpretation: normal SpO2: 97 O2 Delivery: Room Air - Course Nursing assessment & vital signs reviewed: Yes - CT Exams Lumbar Spine CT Interpretation: Discussed w/radiologist (Minimal L2 endplate compression fx) Ordered Tests: Active Orders 24 hr Category Date Time Status Isolation, Initiate & Maintain Q4H Care 09/16/19 21:06 Active LUMBAR SPINE W/O [CT] Stat Exams 09/16/19 21:15 Taken Medication Summary Discontinued Medications Generic Name Dose Route Start Last Admin Trade Name Freq PRN Reason Stop Dose Admin Ketorolac Tromethamine 30 mg 09/16/19 21:15 09/16/19 21:23 Toradol 30 Mg Injection IM 09/16/19 21:16 30 mg STAT ONE Administration Ketorolac Tromethamine Confirm 09/16/19 21:21 Toradol 30 Mg Injection Administered 09/16/19 21:22 Dose 30 mg .ROUTE .STK-MED ONE - Progress Progress: improved Progress Note: 09/16/19 22:07 Pt improved w 30mg IM toradol 09/16/19 22:11 Inspect neg Counseled pt/family regarding: diagnosis, need for follow-up - Departure Departure Disposition: Home Clinical Impression: Compression fracture Condition: Stable Critical Care Time: No Referrals: DOCTOR,NO FAMILY [Primary Care Provider] - Instructions: Vertebral Compression Fracture (DC) Additional Instructions: Pain meds as needed Follow up with family MD or Rehab MD in AM Prescriptions: Hydrocodone Bit/Acetaminophen [[place] 10-325 Tablet] 1 each PO Q4HPRN PRN #10 tablet PRN Reason: Pain
[2019-09-16 22:12] VITALS: BP 121/73
[2019-09-16 22:15] VITALS: PULSE 69
--- NOTE | 2019-09-17 09:20 | XRAY ---
Indication: Low back pain following fall. Multiple contiguous axial images obtained through the lumbar spine. Sagittal and coronal reformatted images obtained. Comparison: None There is mild multilevel endplate spurring, mild L3-S1 broad base disc bulge, mild bilateral L3-S1 degenerative facet hypertrophy, and L5-S1 degenerative vacuum disc phenomena. L2 superior endplate demonstrates nondisplaced acute fracture with less than 25% height loss. Sagittal and coronal reformatted images demonstrates normal lumbar alignment with minimal L5-S1 disc space narrowing. Remaining vertebral body heights/disc spaces maintained. Visualized noncontrasted soft tissues demonstrates scattered sigmoid diverticulosis and a few pelvic phleboliths. Impression: 1. L2 superior endplate fracture as detailed. No spinal canal or foraminal encroachment. 2. L3-S1 degenerative changes. MRI may yield further information if clinically warranted. 3. Incidental sigmoid diverticulosis.
== END 2019-09-16 22:30 | disposition home or self-care (01) ==
LOC: ED 20:40
DX: S32.029A Unspecified fracture of second lumbar vertebra, initial encounter for closed fracture (principal); V00.831A Fall from motorized mobility scooter, initial encounter; Y92.481 Parking lot as the place of occurrence of the external cause; Y93.I9 Activity, other involving external motion; M54.5 Low back pain; Z86.73 Personal history of transient ischemic attack (TIA), and cerebral infarction without residual deficits; I69.354 Hemiplegia and hemiparesis following cerebral infarction affecting left non-dominant side; Z79.899 Other long term (current) drug therapy; I25.10 Atherosclerotic heart disease of native coronary artery without angina pectoris; I50.9 Heart failure, unspecified; I10 Essential (primary) hypertension; E78.00 Pure hypercholesterolemia, unspecified; I25.2 Old myocardial infarction; G47.30 Sleep apnea, unspecified; F51.9 Sleep disorder not due to a substance or known physiological condition, unspecified
CPT/HCPCS: 72131; 96372; 99284; J1885

== ENCOUNTER 2019-09-22 10:38 | Emergency (ER) | payer OTHER ==
[2019-09-22 10:55] VITALS: O2SAT 97
[2019-09-22] MEDS ORDERED: TORAdol 30 mg Injection ONE (10:59)
[2019-09-22] MEDS ORDERED: DECADRON 10MG INJ. ONE (10:59)
[2019-09-22] MEDS: DECADRON 10MG INJ. IV ONE (11:06)
[2019-09-22] MEDS: TORAdol 30 mg Injection IV ONE (11:07)
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
[2019-09-22 14:00] VITALS: BP 143/94; PULSE 90
--- NOTE | 2019-09-22 19:31 | XRAY ---
Indication: Low back pain. Recent L2 fracture. Multiple contiguous axial images obtained through the lumbar spine. Sagittal and coronal reformatted images obtained. Comparison: September 16, 2019. Stable L2 superior endplate fracture again with less than 25% height loss and no spinal canal/foraminal encroachment. No new acute fracture or suspicious bony lesions. Stable multilevel endplate spurring, mild L3-S1 broad-based disc bulge, and mild bilateral L3-S1 degenerative facet hypertrophy. Sagittal and coronal reformatted images again demonstrates normal lumbar alignment with minimal L5-S1 disc space narrowing. Remaining vertebral body heights/disc spaces maintained. Visualized noncontrasted soft tissues again demonstrates minimal aortoiliac calcifications.. Impression: Stable L2 superior endplate fracture and L3-S1 degenerative changes. No new/acute findings. Comment: Preliminary interpretation was made by [facility]. No critical discrepancy.
== END 2019-09-22 14:01 | disposition home or self-care (01) ==
LOC: ED 10:38
DX: M54.5 Low back pain (principal); S32.029A Unspecified fracture of second lumbar vertebra, initial encounter for closed fracture; Z86.73 Personal history of transient ischemic attack (TIA), and cerebral infarction without residual deficits; W19.XXXS Unspecified fall, sequela; Z79.899 Other long term (current) drug therapy; I50.9 Heart failure, unspecified; E78.00 Pure hypercholesterolemia, unspecified; I10 Essential (primary) hypertension; G47.30 Sleep apnea, unspecified; Z72.0 Tobacco use; Z85.89 Personal history of malignant neoplasm of other organs and systems
CPT/HCPCS: 36000; 72131; 96374; 96375; 99284; J1100; J1885

== ENCOUNTER 2020-07-03 09:44 | Inpatient (IN) | payer OTHER ==
[2020-07-03] MEDS ORDERED: solu-MEDROL 125 MG IV ONE (09:58)
[2020-07-03] MEDS ORDERED: DUONEB 0.5-3 MG/3 ml Neb IH ONE ×2 (09:58→10:04)
[2020-07-03] MEDS ORDERED: BABY ASPIRIN 81 MG CHEW PO ONE (09:59)
[2020-07-03 10:12] LABS: Absolute Neutrophil Ct (ANC) 7.25 (1.4-6.9); BASOPHIL % 0.6 % (0.0-0.4); Basophil (Absolute #) 0.06 (0-0.4); Eosinophil % 4.6 % (0.00-5.0); Eosinophil (Absolute #) 0.46 (0-0.5); Hematocrit 42.2 % (42-50); Hemoglobin 13.8 gm/dl (12.5-18.0); Lymphocyte (Absolute #) 1.66 (1.0-4.6); Lymphocytes % 16.6 % (24.0-44.0); Mean Cell Volume 85.4 fl (78-100); Mean Corpuscular Hemoglobin 27.9 pg (26-32); Mean Corpuscular Hgb Concent. 32.7 g/dl (32-36); Mean Platelet Volume 10.9 fl (7.5-11.0); Monocyte (Absolute #) 0.58 (0.0-1.3); Monocytes % 5.8 % (0.0-12.0); Neutrophil % 72.4 % (36.0-66.0); Platelet Count 268 K/mm3 (150-450); Red Blood Count 4.94 M/mm3 (4.1-5.6); Red Cell Distribution Width 15.5 % (11.5-14.0)
[2020-07-03 10:15] LABS: A-aADO2 98; ABG HEMOGLOBIN 13.9; ABG POTASSIUM 3.7 (3.5-5.1); ABG SITE RIGHT BRACHIAL; ALLEN TEST OK? Yes; ARTERIAL BLD GAS O2 SATURATION 97.7 % (95-100); ARTERIAL BLOOD GAS BASE EXCESS 2.8 (-2.0-2.0); ARTERIAL BLOOD GAS FIO2 32 %; ARTERIAL BLOOD GAS PCO2 40 mmHg (35-45); ARTERIAL BLOOD GAS PO2 80 mmHg (75-100); ARTERIAL BLOOD GAS pH 7.44 (7.35-7.45); HCO3- 27.2 (22-28); HGB O2 SAT 95.1 g/dF (94-100); Lactic Acid 1.4 (0.4-2.0); Methhemoglobin 0.8 % (1.4-1.5)
[2020-07-03] MEDS ORDERED: solu-MEDROL 125 MG ONE (10:18)
[2020-07-03] MEDS ORDERED: BABY ASPIRIN 81 MG CHEW ONE (10:19)
[2020-07-03 10:27] LABS: ALBUMIN 4.1 g/dL (3.5-5.0); ALKALINE PHOSPHATASE 75 U/L (38-126); ANION GAP 17.2 MEQ/L (5-15); BLOOD UREA NITROGEN 13 mg/dL (9-20); CHLORIDE 103 mmol/L (98-107); Calcium 9.4 mg/dL (8.4-10.2); Carbon Dioxide 22 mmol/L (22-30); Creatinine 1 0.59 mg/dL (0.66-1.25); EST GLOMERULAR FILTRATION RATE > 60.0 ML/MIN; Glucose 152 mg/dL (74-106); MAGNESIUM 1.8 mg/dL (1.6-2.3); NT PRO BNP 452 pg/mL (0-900); Potassium 4.1 mmol/L (3.5-5.1); SGOT/AST 43 U/L (17-59); SGPT/ALT 33 U/L (0-50); SODIUM 138 mmol/L (137-145); Total Protein 7.8 g/dL (6.3-8.2)
[2020-07-03] MEDS ORDERED: VENTOLIN COMMON CANISTER IH PRN (10:27)
--- NOTE | 2020-07-03 10:28 | ERPHSYRPT ---
- History of Present Illness Time Seen by Provider: 07/03/20 09:45 Source: patient Exam Limitations: no limitations Patient Subjective Stated Complaint: pt here for sob for last 5 days with a cough,no fever. Triage Nursing Assessment: pt alert, arrived per wc,SOB, was able to get self with cane from wc to bed, face mask in place, skin w/d/p, resp labored, has productive cough, edema to lower legs he states is nomral, pt had old stroke that left left side weak Physician History: 50 years old male with history of coronary artery disease status post CABG, CVA with left-sided residual weakness, COPD, hypertension, hyperlipidemia presented in the ER with chief complaint of worsening shortness of breath for the last 5 days. Patient reports worsening of cough productive of clear to yellow sputum moderate in amount along with generalized chest soreness and tightness. Initially shortness of breath was more with activity but gradually getting short of breath at resting. Denies fever or chills. On presentation in the ER his oxygen saturation dropped to 81% on room air, placed on 3 L oxygen currently satting around 95%. Does have history of Covid infection. Timing/Duration: day(s) (5), gradual onset, worse Activities at Onset: rest Severity of Dyspnea-Max: severe Severity of Dyspnea-Current: severe Modifying Factors: Improves With: albuterol nebulizer, rest. Worsens With: activity, coughing, exertion Associated Symptoms: wheezing, productive cough, tightness, No fever, No calf pain, No painful breathing Allergies/Adverse Reactions: No Known Drug Allergies Allergy (Verified 07/03/20 09:55) Home Medications: Metoprolol Tartrate 25 mg PO BID 01/14/13 [History] Aspirin 81 mg PO DAILY 07/13/17 [History] Furosemide 40 mg [Lasix 40 MG] 40 mg PO DAILY 07/13/17 [History] Sertraline HCl 200 mg PO DAILY 07/13/17 [History] Trazodone HCl 50 mg [Desyrel 50 mg] 50 mg PO HS 02/16/19 [History] Clopidogrel Bisulfate 75 mg [PLAVIX 75 MG Tablet] 75 mg PO DAILY 07/27/19 [History] Atorvastatin Calcium 80 mg PO HS 09/16/19 [History] lisinopriL [Zestril] 2.5 mg PO DAILY 09/16/19 [History] Cholecalciferol (Vitamin D3) [Vitamin D] 400 unit PO TID 04/14/20 [History] Metformin HCl 500 mg PO BID 04/14/20 [History] Mirtazapine 15 mg PO HS 04/14/20 [History] Multivitamin 1 each PO DAILY 04/14/20 [History] Omeprazole 20 mg PO DAILY 04/14/20 [History] Hx Tetanus, Diphtheria Vaccination/Date Given: Yes Hx Influenza Vaccination/Date Given: Yes Hx Pneumococcal Vaccination/Date Given: Yes Immunizations Up to Date: Yes Travel Risk - International Travel Have you traveled outside of the country in past 3 weeks: No - Coronavirus Screening Are you exhibiting any of the following symptoms?: Yes Symptoms: Cough: New Onset, Shortness of Breath - Review of Systems Constitutional: Fatigue Eyes: No Symptoms Ears, Nose, & Throat: No Symptoms Respiratory: Cough, Dyspnea on Exertion (REED), Wheezing Cardiac: Chest Pain Abdominal/Gastrointestinal: No Symptoms Genitourinary Symptoms: No Symptoms Musculoskeletal: Arthralgias, Back Pain Skin: No Symptoms Neurological: Focal Weakness Psychological: No Symptoms Endocrine: No Symptoms Hematologic/Lymphatic: No Symptoms Immunological/Allergic: No Symptoms - Past Medical History Pertinent Past Medical History: Yes Neurological History: Stroke, TIA ENT History: Other Cardiac History: Congestive Heart Failure, High Cholesterol, Hypertension, Myocardial Infarction ([place]) Respiratory History: COPD, Sleep Apnea Endocrine Medical History: No Pertinent History Musculoskeletal History: Fractures, Osteoarthritis GI Medical History: Diverticulitis History: No Pertinent History Psycho-Social History: Anxiety, Depression Male Reproductive Disorders: No Pertinent History Other Medical History: CABG x 4, pneumonia, [place] x 3 breathing machine at night, 2 cracked vertabra, liposarcoma, tinnitus, covid in november - Past Surgical History Past Surgical History: Yes Neuro Surgical History: No Pertinent History Cardiac: CABG, Cardiac Catheterization Respiratory: No Pertinent History Gastrointestinal: No Pertinent History Genitourinary: No Pertinent History Musculoskeletal: Other Male Surgical History: No Pertinent History Other Surgical History: tonsils, tumors removed from leg and lymph nodes (cancer)liposarcoma, kyphoplasty L1-L2 - Social History Smoking Status: Former smoker How long have you smoked: years Exposure to second hand smoke: No Alcohol Use: Socially Drug Use: none Patient Lives Alone: Yes Significant Family History: heart disease, hypertension - Nursing Vital Signs Nursing Vital Signs: Initial Vital Signs Temperature 97.9 F 07/03/20 09:45 Pulse Rate 95 H 07/03/20 09:45 Respiratory Rate 32 H 07/03/20 09:45 O2 Sat by Pulse Oximetry 82 L 07/03/20 09:45 Pain Scale Pain Intensity 5 - Physical Exam General Appearance: moderate distress, alert Eye Exam: PERRL/EOMI, eyes nml inspection Ears, Nose, Throat Exam: hearing grossly normal, normal ENT inspection, pharyngeal erythema Neck Exam: normal inspection, non-tender, supple, full range of motion Respiratory Exam: diminished breath sounds, crackles/rales, rhonchi, wheezing Cardiovascular/Chest Exam: normal heart sounds, regular rate/rhythm Abdominal/Gastrointestinal Exam: soft Extremity Exam: non-tender, no calf tenderness Neurologic Exam: alert, oriented x 3, cooperative Skin Exam: normal color SpO2 Interpretation: hypoxic, O2 applied SpO2: 96 O2 Delivery: Nasal Cannula - Course EKG Interpreted by Me: RATE (95), Sinus Rhythm, NORMAL AXIS, NORMAL INTERVALS, Other (Nonspecific T wave changes) Ordered Tests: Active Orders 24 hr Category Date Time Status Up With Assistance ROUTINE Activity 07/03/20 13:41 Active Admit as Inpatient ROUTINE Care 07/03/20 13:41 Active Service Station Equipment Mechanic STAT Care 07/03/20 09:58 Completed Code Status Order ROUTINE Care 07/03/20 13:41 Active EKG-ER Only STAT Care 07/03/20 09:58 Completed Fall Protocol ROUTINE Care 07/03/20 13:41 Active IV Care Q6H Care 07/03/20 13:41 Active Oxygen-ED Only Nasal Cannula 3 lpm Care 07/03/20 09:58 Completed Isra Lantigua ROUTINE Care 07/03/20 13:41 Active Weight,Daily 0600 Care 07/03/20 13:41 Active Heart-Healthy Diet Diet 07/03/20 Dinner Active CHEST 1 VIEW (PORTABLE) Stat Exams 07/03/20 09:58 Completed CHEST WITH CONTRAST [CT] Stat Exams 07/03/20 11:44 Completed ARTERIAL BLOOD GASES Stat Lab 07/03/20 09:58 Completed BLOOD CULTURE Stat Lab 07/03/20 10:22 Received CBC W DIFF AM.LAB Lab 07/04/20 04:00 Ordered CBC W DIFF Stat Lab 07/03/20 10:06 Completed CMP AM.LAB Lab 07/04/20 04:00 Ordered CMP Stat Lab 07/03/20 10:06 Completed D-DIMER QUANTITATIVE Stat Lab 07/03/20 10:15 Completed Lactic Acid Stat Lab 07/03/20 09:58 Completed MAGNESIUM Stat Lab 07/03/20 10:06 Completed NT PRO BNP Stat Lab 07/03/20 10:06 Completed TROPONIN Q3H Lab 07/03/20 10:06 Completed TROPONIN Q3H Lab 07/03/20 12:30 Completed TROPONIN Q3H Lab 07/03/20 16:10 Completed TROPONIN Q3H Lab 07/03/20 19:00 Ordered TROPONIN Q3H Lab 07/03/20 22:00 Ordered Oxygen Nasal Cannula 3 lpm RT 07/03/20 13:41 Active Respiratory MDI STAT RT 07/03/20 10:29 Completed Respiratory Therapy Assessment DAILY RT 07/03/20 10:29 Completed Transfer Order Routine Transfer 07/03/20 Completed Medication Summary Generic Name Dose Route Start Last Admin Trade Name Freq PRN Reason Stop Dose Admin Albuterol/Ipratropium 3 ml 07/03/20 15:00 Duoneb 0.5-3 Mg/3 Ml Neb IH 08/02/20 14:59 Q4HRT [facility] Aspirin 81 mg 07/04/20 10:00 Ecotrin 81 Mg PO 08/03/20 09:59 DAILY [facility] Cholecalciferol 500 unit 07/03/20 22:00 Vitamin D PO 08/02/20 21:59 TID [facility] Clopidogrel Bisulfate 75 mg 07/04/20 10:00 Plavix 75 Mg Tablet PO 08/03/20 09:59 DAILY [facility] Furosemide 40 mg 07/04/20 10:00 Lasix 40 Mg PO 08/03/20 09:59 DAILY [facility] Azithromycin 500 mg in 250 mls @ 250 mls/hr 07/04/20 10:00 Zithromax 500 Mg/ 250 Ml Nacl Premix IV 08/03/20 09:59 Q24H10 [facility] Piperacillin Sod/Tazobactam 100 mls @ 200 mls/hr 07/03/20 18:00 Sod 3.375 gm/ Sodium Chloride IV 08/02/20 17:59 Q6HT [facility] Lisinopril 2.5 mg 07/04/20 10:00 Zestril 5 Mg PO 08/03/20 09:59 DAILY [facility] Metformin HCl 500 mg 07/03/20 18:00 Glucophage 500 Mg PO 08/02/20 17:59 BIDWM [facility] Methylprednisolone Sodium Succinate 80 mg 07/03/20 18:00 Solu-Medrol 125 Mg IV 08/02/20 17:59 Q6HT [facility] Metoprolol Tartrate 25 mg 07/03/20 22:00 Lopressor 25mg Tab PO 08/02/20 21:59 BID [facility] Mirtazapine 15 mg 07/03/20 22:00 Remeron 30 Mg PO 08/02/20 21:59 HS [facility] Multivitamins Therapeutic 1 tab 07/04/20 10:00 Theragran Multivitamin PO 08/03/20 09:59 DAILY [facility] Pantoprazole Sodium 40 mg 07/04/20 10:00 Protonix 40mg Tablet PO 08/03/20 09:59 DAILY [facility] Sertraline HCl 200 mg 07/04/20 10:00 Zoloft 50 Mg Tablet PO 08/03/20 09:59 DAILY [facility] Simvastatin 40 mg 07/03/20 22:00 Zocor 20mg PO 08/02/20 21:59 HS [facility] Trazodone HCl 50 mg 07/03/20 22:00 Desyrel 50 Mg PO 08/02/20 21:59 HS [facility] Discontinued Medications Generic Name Dose Route Start Last Admin Trade Name Freq PRN Reason Stop Dose Admin Albuterol Sulfate 4 puff 07/03/20 10:27 07/03/20 10:28 Ventolin Common Canister IH 08/02/20 10:26 4 puff Q4H PRN PRN Administration SHORTNESS OF BREATH/WHEEZING Albuterol/Ipratropium 3 ml 07/03/20 09:58 Duoneb 0.5-3 Mg/3 Ml Neb IH 07/03/20 09:59 STAT ONE Albuterol/Ipratropium Confirm 07/03/20 10:04 Duoneb 0.5-3 Mg/3 Ml Neb Administered 07/03/20 10:05 Dose 3 ml IH .STK-MED ONE Aspirin 324 mg 07/03/20 09:59 07/03/20 10:20 Baby Aspirin 81 Mg Chew PO 07/03/20 10:00 324 mg STAT ONE Administration Aspirin Confirm 07/03/20 10:19 Baby Aspirin 81 Mg Chew Administered 07/03/20 10:20 Dose 324 mg .ROUTE .STK-MED ONE Piperacillin Sod/Tazobactam 100 mls @ 200 mls/hr 07/03/20 10:37 07/03/20 16:34 Sod 3.375 gm/ Sodium Chloride IV 07/03/20 11:06 Not Given STAT ONE Azithromycin 500 mg in 250 mls @ 250 mls/hr 07/03/20 10:37 07/03/20 16:34 Zithromax 500 Mg/ 250 Ml Nacl Premix IV 07/03/20 11:36 Not Given STAT STA Methylprednisolone Sodium Succinate 125 mg 07/03/20 09:58 07/03/20 10:20 Solu-Medrol 125 Mg IV 07/03/20 09:59 125 mg STAT ONE Administration Methylprednisolone Sodium Succinate Confirm 07/03/20 10:18 Solu-Medrol 125 Mg Administered 07/03/20 10:19 Dose 125 mg .ROUTE .STK-MED ONE Lab/Rad Data: Laboratory Result Diagrams 07/03/20 10:06 07/03/20 10:06 Laboratory Results 07/03/20 07/03/20 07/03/20 Range/Units 12:31 12:30 10:15 WBC (4.0-10.5) K/mm3 RBC (4.1-5.6) M/mm3 Hgb (12.5-18.0) gm/dl Hct (42-50) % MCV (78-100) fl MCH (26-32) pg MCHC (32-36) g/dl RDW (11.5-14.0) % Plt Count (150-450) K/mm3 MPV (7.5-11.0) fl Gran % (36.0-66.0) % Eos # (Auto) (0-0.5) Absolute Lymphs (auto) (1.0-4.6) Absolute Monos (auto) (0.0-1.3) Lymphocytes % (24.0-44.0) % Monocytes % (0.0-12.0) % Eosinophils % (0.00-5.0) % Basophils % (0.0-0.4) % Absolute Granulocytes (1.4-6.9) Basophils # (0-0.4) D-Dimer 543 H* (215-500) ng/mL Puncture Site pCO2 (35-45) mmHg pO2 (75-100) mmHg Base Excess (-2.0-2.0) O2 Saturation (94-100) g/dF ABG pH (7.35-7.45) ABG HCO3 (22-28) ABG O2 Sat (Measured) (95-100) % Austen Test A-a Gradient a/A Ratio Hemoglobin Carboxyhemoglobin (0.0-6.9) % THgb Methemoglobin (1.4-1.5) % Potassium (3.5-5.1) Temperature C POC O2 Flow Rate % Sodium (137-145) mmol/L Chloride (98-107) mmol/L Carbon Dioxide (22-30) mmol/L Anion Gap (5-15) MEQ/L BUN (9-20) mg/dL Creatinine (0.66-1.25) mg/dL Estimated GFR ML/MIN Glucose (74-106) mg/dL Lactic Acid (0.4-2.0) Calcium (8.4-10.2) mg/dL Magnesium (1.6-2.3) mg/dL Total Bilirubin (0.2-1.3) mg/dL AST (17-59) U/L ALT (0-50) U/L Alkaline Phosphatase (38-126) U/L Troponin I 0.029 (0.000-0.034) ng/mL NT-Pro-B Natriuret Pep (0-900) pg/mL Serum Total Protein (6.3-8.2) g/dL Albumin (3.5-5.0) g/dL Influenza Type A Ag NEGATIVE (NEGATIVE) Influenza Type B Ag NEGATIVE (NEGATIVE) RSV (PCR) NEGATIVE (Negative) SARS-CoV-2 (PCR) NEGATIVE (NEGATIVE) 07/03/20 07/03/20 07/03/20 Range/Units 10:06 10:06 10:06 WBC 10.0 (4.0-10.5) K/mm3 RBC 4.94 (4.1-5.6) M/mm3 Hgb 13.8 (12.5-18.0) gm/dl Hct 42.2 (42-50) % MCV 85.4 (78-100) fl MCH 27.9 (26-32) pg MCHC 32.7 (32-36) g/dl RDW 15.5 H (11.5-14.0) % Plt Count 268 (150-450) K/mm3 MPV 10.9 (7.5-11.0) fl Gran % 72.4 H (36.0-66.0) % Eos # (Auto) 0.46 (0-0.5) Absolute Lymphs (auto) 1.66 (1.0-4.6) Absolute Monos (auto) 0.58 (0.0-1.3) Lymphocytes % 16.6 L (24.0-44.0) % Monocytes % 5.8 (0.0-12.0) % Eosinophils % 4.6 (0.00-5.0) % Basophils % 0.6 (0.0-0.4) % Absolute Granulocytes 7.25 H (1.4-6.9) Basophils # 0.06 (0-0.4) D-Dimer (215-500) ng/mL Puncture Site pCO2 (35-45) mmHg pO2 (75-100) mmHg Base Excess (-2.0-2.0) O2 Saturation (94-100) g/dF ABG pH (7.35-7.45) ABG HCO3 (22-28) ABG O2 Sat (Measured) (95-100) % Austen Test A-a Gradient a/A Ratio Hemoglobin Carboxyhemoglobin (0.0-6.9) % THgb Methemoglobin (1.4-1.5) % Potassium 4.1 (3.5-5.1) Temperature C POC O2 Flow Rate % Sodium 138 (137-145) mmol/L Chloride 103 (98-107) mmol/L Carbon Dioxide 22 (22-30) mmol/L Anion Gap 17.2 H (5-15) MEQ/L BUN 13 (9-20) mg/dL Creatinine 0.59 L (0.66-1.25) mg/dL Estimated GFR > 60.0 ML/MIN Glucose 152 H (74-106) mg/dL Lactic Acid (0.4-2.0) Calcium 9.4 (8.4-10.2) mg/dL Magnesium 1.8 (1.6-2.3) mg/dL Total Bilirubin 0.70 (0.2-1.3) mg/dL AST 43 (17-59) U/L ALT 33 (0-50) U/L Alkaline Phosphatase 75 (38-126) U/L Troponin I 0.030 (0.000-0.034) ng/mL NT-Pro-B Natriuret Pep 452 (0-900) pg/mL Serum Total Protein 7.8 (6.3-8.2) g/dL Albumin 4.1 (3.5-5.0) g/dL Influenza Type A Ag (NEGATIVE) Influenza Type B Ag (NEGATIVE) RSV (PCR) (Negative) SARS-CoV-2 (PCR) (NEGATIVE) 07/03/20 Range/Units 09:58 WBC (4.0-10.5) K/mm3 RBC (4.1-5.6) M/mm3 Hgb (12.5-18.0) gm/dl Hct (42-50) % MCV (78-100) fl MCH (26-32) pg MCHC (32-36) g/dl RDW (11.5-14.0) % Plt Count (150-450) K/mm3 MPV (7.5-11.0) fl Gran % (36.0-66.0) % Eos # (Auto) (0-0.5) Absolute Lymphs (auto) (1.0-4.6) Absolute Monos (auto) (0.0-1.3) Lymphocytes % (24.0-44.0) % Monocytes % (0.0-12.0) % Eosinophils % (0.00-5.0) % Basophils % (0.0-0.4) % Absolute Granulocytes (1.4-6.9) Basophils # (0-0.4) D-Dimer (215-500) ng/mL Puncture Site RIGHT BRACHIAL pCO2 40 (35-45) mmHg pO2 80 (75-100) mmHg Base Excess 2.8 H (-2.0-2.0) O2 Saturation 95.1 (94-100) g/dF ABG pH 7.44 (7.35-7.45) ABG HCO3 27.2 (22-28) ABG O2 Sat (Measured) 97.7 (95-100) % Austen Test Yes A-a Gradient 98 a/A Ratio 0.45 Hemoglobin 13.9 Carboxyhemoglobin 2.0 (0.0-6.9) % THgb Methemoglobin 0.8 L (1.4-1.5) % Potassium 3.7 (3.5-5.1) Temperature 37.0 C POC O2 Flow Rate 32 % Sodium (137-145) mmol/L Chloride (98-107) mmol/L Carbon Dioxide (22-30) mmol/L Anion Gap (5-15) MEQ/L BUN (9-20) mg/dL Creatinine (0.66-1.25) mg/dL Estimated GFR ML/MIN Glucose (74-106) mg/dL Lactic Acid 1.4 (0.4-2.0) Calcium (8.4-10.2) mg/dL Magnesium (1.6-2.3) mg/dL Total Bilirubin (0.2-1.3) mg/dL AST (17-59) U/L ALT (0-50) U/L Alkaline Phosphatase (38-126) U/L Troponin I (0.000-0.034) ng/mL NT-Pro-B Natriuret Pep (0-900) pg/mL Serum Total Protein (6.3-8.2) g/dL Albumin (3.5-5.0) g/dL Influenza Type A Ag (NEGATIVE) Influenza Type B Ag (NEGATIVE) RSV (PCR) (Negative) SARS-CoV-2 (PCR) (NEGATIVE) - Progress Progress: improved, re-examined Air Movement: fair Progress Note: 07/03/20 11:15 Patient was hypoxic and in mild to moderate respiratory distress on presentation. Placed on 3 L oxygen and his saturation improved and from low 80s to 95%. He has bilateral wheezing and rales, given breathing treatment and's Solu-Medrol. Has normal white count and lactate, chest x-ray showed bilateral airspace disease and started on broad-spectrum antibiotics Zosyn and Zithromax. Patient has elevated D-dimer and CTA was obtained which is negative for pulmonary embolism. Discussed with Dr. Dickerson and patient is admitted. Blood Culture(s) Obtained: Yes Antibiotics given: Yes Discussed with Dr.: Selin Will see patient in: hospital (full admit) Counseled pt/family regarding: lab results, diagnosis, rad results - Departure Departure Disposition: In-patient Admission Clinical Impression: Acute hypoxemic respiratory failure Bilateral pneumonia Qualifiers: Pneumonia type: due to unspecified organism Lung location: unspecified part of lung Qualified Code(s): J18.9 - Pneumonia, unspecified organism Condition: Fair Critical Care Time: Yes Critical Care Time(excluding separately billable procedures): Critical 30-74 mins
[2020-07-03] MEDS ORDERED: Zosyn 3.375 GM Vial 3.375 GM in Sodium Chloride 100ML MINI-BAG PLUS 100 ML IV ONE (10:37)
[2020-07-03] MEDS ORDERED: Zithromax 500 MG/ 250 ML NaCl Premix 500 MG/250 ML IVPB IV STA (10:37)
--- NOTE | 2020-07-03 10:44 | XRAY ---
Indication: Short of breath. Covid 19 infection in November 2019. Comparison: February 26, 2019. Portable chest again demonstrates diffuse bilateral airspace disease worsened in the right upper lobe but no consolidation/large effusion. Cardiac silhouette remains obscured again with CABG surgery. Bony thorax intact.
--- NOTE | 2020-07-03 12:37 | XRAY ---
Indication: Short of breath. Elevated d-dimer. Covid 19 positive November 2019. Multiple contiguous axial images obtained through the chest using 100 cc Isovue 370 contrast and PE protocol. Comparison: None There is good opacification of the pulmonary arteries to include the lobar and segmental branches. No pulmonary embolus. Heart is enlarged demonstrating CABG surgery. Aorta is normal in course and caliber. Tiny right hilar calcified node. No pathologic mediastinal/hilar lymphadenopathy. Lungs demonstrates diffuse bilateral airspace opacities without consolidations/effusion. Bony thorax intact with flowing osteophytes throughout the spine and L1 kyphoplasty. Limited upper abdomen demonstrates fatty liver and hepatic/splenic calcified granulomas. Impression: 1. Negative pulmonary embolus. 2. Diffuse bilateral airspace disease. 3. Cardiomegaly with CABG surgery. 4. Incidental fatty liver, chronic bony findings, and old granulomatous disease.
[2020-07-03 13:12] LABS: INFLUENZA A NEGATIVE (NEGATIVE); INFLUENZA B NEGATIVE (NEGATIVE); RESPIRATORY SYNCTIAL VIRUS NEGATIVE (Negative)
[2020-07-03] MEDS ORDERED: DUONEB 0.5-3 MG/3 ml Neb IH SCH (15:00)
[2020-07-03] MEDS: solu-MEDROL 125 MG IV SCH (18:58)
[2020-07-03] MEDS: Glucophage 500 MG PO SCH (18:58)
[2020-07-03] MEDS: Zosyn 3.375 GM Vial 3.375 GM in Sodium Chloride 100ML MINI-BAG PLUS 100 ML IV SCH (18:58)
[2020-07-03] MEDS: REMERON 30 MG PO SCH (21:43)
[2020-07-03] MEDS: Lopressor 25MG Tab PO SCH (21:44)
[2020-07-03] MEDS: ZOCOR 20MG PO SCH (21:45)
[2020-07-03] MEDS: VITAMIN D PO SCH (21:45)
[2020-07-03] MEDS: DESYREL 50 MG PO SCH (21:46)
[2020-07-03] MEDS ORDERED: NON-FORMULARY ITEM (Mirtazapine [Mirtazapine] 15 MG) PO SCH (22:00)
[2020-07-03] MEDS ORDERED: NON-FORMULARY ITEM (Cholecalciferol (Vitamin D3) [Vitamin D] 400 UNIT) PO SCH (22:00)
[2020-07-03] MEDS ORDERED: LIPITOR 40MG PO SCH (22:00)
[2020-07-04] MEDS: Zosyn 3.375 GM Vial 3.375 GM in Sodium Chloride 100ML MINI-BAG PLUS 100 ML IV SCH ×5 (00:30→23:21)
[2020-07-04] MEDS: solu-MEDROL 125 MG IV SCH ×5 (00:30→23:22)
[2020-07-04 06:30] LABS: Absolute Neutrophil Ct (ANC) 12.32 (1.4-6.9); BASOPHIL % 0.3 % (0.0-0.4); Basophil (Absolute #) 0.05 (0-0.4); Eosinophil (Absolute #) 0 (0-0.5); Hematocrit 44.7 % (42-50); Hemoglobin 14.3 gm/dl (12.5-18.0); Lymphocyte (Absolute #) 1.55 (1.0-4.6); Lymphocytes % 10.5 % (24.0-44.0); Mean Cell Volume 86.6 fl (78-100); Mean Corpuscular Hemoglobin 27.7 pg (26-32); Mean Platelet Volume 10.9 fl (7.5-11.0); Monocyte (Absolute #) 0.88 (0.0-1.3); Monocytes % 5.9 % (0.0-12.0); Neutrophil % 83.3 % (36.0-66.0); Platelet Count 323 K/mm3 (150-450); Red Blood Count 5.16 M/mm3 (4.1-5.6); Red Cell Distribution Width 15.4 % (11.5-14.0); White Blood Count 14.8 K/mm3 (4.0-10.5)
[2020-07-04 06:38] LABS: ALBUMIN 3.7 g/dL (3.5-5.0); ALKALINE PHOSPHATASE 66 U/L (38-126); ANION GAP 15.6 MEQ/L (5-15); BLOOD UREA NITROGEN 16 mg/dL (9-20); CHLORIDE 101 mmol/L (98-107); Calcium 9.4 mg/dL (8.4-10.2); Carbon Dioxide 28 mmol/L (22-30); EST GLOMERULAR FILTRATION RATE > 60.0 ML/MIN; Glucose 194 mg/dL (74-106); Potassium 4.2 mmol/L (3.5-5.1); SGOT/AST 30 U/L (17-59); SGPT/ALT 34 U/L (0-50); SODIUM 140 mmol/L (137-145); Total Protein 6.9 g/dL (6.3-8.2)
[2020-07-04] MEDS: Glucophage 500 MG PO SCH ×2 (08:26→16:49)
[2020-07-04] MEDS: VITAMIN D PO SCH ×3 (09:30→21:08)
[2020-07-04] MEDS: Zithromax 500 MG/ 250 ML NaCl Premix 500 MG/250 ML IVPB IV SCH (09:30)
[2020-07-04] MEDS: Protonix 40MG Tablet PO SCH (09:31)
[2020-07-04] MEDS: Lopressor 25MG Tab PO SCH ×2 (09:31→21:08)
[2020-07-04] MEDS: ZOLOFT 50 MG TABLET PO SCH (09:31)
[2020-07-04] MEDS: Lasix 40 MG PO SCH (09:31)
[2020-07-04] MEDS: THERAGRAN MULTIVITAMIN PO SCH (09:32)
[2020-07-04] MEDS: Zestril 5 MG PO SCH (09:32)
[2020-07-04] MEDS: PLAVIX 75 MG Tablet PO SCH (09:32)
[2020-07-04] MEDS: ECOTRIN 81 MG PO SCH (09:33)
[2020-07-04] MEDS ORDERED: NON-FORMULARY ITEM (Aspirin [Aspirin] 81 MG) PO SCH (10:00)
[2020-07-04] MEDS ORDERED: NON-FORMULARY ITEM (Omeprazole [Omeprazole] 20 MG) PO SCH (10:00)
[2020-07-04] MEDS ORDERED: NON-FORMULARY ITEM (Multivitamin [Multivitamin] 1 EACH) PO SCH (10:00)
[2020-07-04] MEDS ORDERED: NON-FORMULARY ITEM (Lisinopril [Zestril] 2.5 MG) PO SCH (10:00)
[2020-07-04] MEDS: DUONEB 0.5-3 MG/3 ml Neb IH PRN ×2 (10:52→14:43)
[2020-07-04] MEDS ORDERED: TYLENOL 325 MG PO PRN (12:03)
[2020-07-04] MEDS: HUMALOG SQ PRN ×3 (12:33→22:18)
[2020-07-04] MEDS: REMERON 30 MG PO SCH (21:07)
[2020-07-04] MEDS: DESYREL 50 MG PO SCH (21:07)
[2020-07-04] MEDS: ZOCOR 20MG PO SCH (21:08)
[2020-07-05] MEDS: solu-MEDROL 125 MG IV SCH ×4 (05:06→23:38)
[2020-07-05] MEDS: Zosyn 3.375 GM Vial 3.375 GM in Sodium Chloride 100ML MINI-BAG PLUS 100 ML IV SCH ×4 (05:06→23:38)
[2020-07-05 06:30] LABS: Hematocrit 43.1 % (42-50); Hemoglobin 13.9 gm/dl (12.5-18.0); Mean Cell Volume 86.5 fl (78-100); Mean Corpuscular Hemoglobin 27.9 pg (26-32); Mean Corpuscular Hgb Concent. 32.3 g/dl (32-36); Mean Platelet Volume 10.8 fl (7.5-11.0); Platelet Count 364 K/mm3 (150-450); Red Blood Count 4.98 M/mm3 (4.1-5.6); Red Cell Distribution Width 15.3 % (11.5-14.0); White Blood Count 14.8 K/mm3 (4.0-10.5)
[2020-07-05 06:32] LABS: ANION GAP 14.3 MEQ/L (5-15); BLOOD UREA NITROGEN 19 mg/dL (9-20); CHLORIDE 99 mmol/L (98-107); Calcium 9.3 mg/dL (8.4-10.2); Carbon Dioxide 30 mmol/L (22-30); Creatinine 1 0.63 mg/dL (0.66-1.25); EST GLOMERULAR FILTRATION RATE > 60.0 ML/MIN; Glucose 201 mg/dL (74-106); Potassium 4.3 mmol/L (3.5-5.1); SODIUM 139 mmol/L (137-145)
[2020-07-05] MEDS: DUONEB 0.5-3 MG/3 ml Neb IH PRN ×2 (07:13→10:45)
--- NOTE | 2020-07-05 08:19 | XRAY ---
Indication: Pneumonia. Comparison: July 03, 2020. Portable apical lordotic chest again demonstrates diffuse bilateral airspace disease, worsened left lower lobe now silhouetting the hemidiaphragm. Grossly stable CT proven cardiomegaly again with CABG. No new cardiopulmonary abnormalities.
[2020-07-05] MEDS: Glucophage 500 MG PO SCH ×2 (08:35→17:13)
[2020-07-05] MEDS: HUMALOG SQ PRN ×4 (08:35→21:48)
[2020-07-05] MEDS: ZOLOFT 50 MG TABLET PO SCH (09:25)
[2020-07-05] MEDS: VITAMIN D PO SCH ×3 (09:25→20:39)
[2020-07-05] MEDS: Lopressor 25MG Tab PO SCH ×2 (09:26→20:39)
[2020-07-05] MEDS: Lasix 40 MG PO SCH (09:26)
[2020-07-05] MEDS: PLAVIX 75 MG Tablet PO SCH (09:26)
[2020-07-05] MEDS: THERAGRAN MULTIVITAMIN PO SCH (09:26)
[2020-07-05] MEDS: ECOTRIN 81 MG PO SCH (09:27)
[2020-07-05] MEDS: Zestril 5 MG PO SCH (09:27)
[2020-07-05] MEDS: Protonix 40MG Tablet PO SCH (09:27)
[2020-07-05] MEDS: Zithromax 500 MG/ 250 ML NaCl Premix 500 MG/250 ML IVPB IV SCH (09:29)
[2020-07-05] MEDS: REMERON 30 MG PO SCH (20:38)
[2020-07-05] MEDS: ZOCOR 20MG PO SCH (20:39)
[2020-07-05] MEDS: DESYREL 50 MG PO SCH (20:40)
[2020-07-06] MEDS: solu-MEDROL 125 MG IV SCH ×3 (05:13→21:29)
[2020-07-06] MEDS: Zosyn 3.375 GM Vial 3.375 GM in Sodium Chloride 100ML MINI-BAG PLUS 100 ML IV SCH ×3 (05:13→17:16)
[2020-07-06] MEDS: DUONEB 0.5-3 MG/3 ml Neb IH PRN ×2 (07:03→19:19)
[2020-07-06] MEDS: Glucophage 500 MG PO SCH ×2 (08:18→17:16)
[2020-07-06] MEDS: HUMALOG SQ PRN ×3 (08:19→21:59)
[2020-07-06 09:04] LABS: Absolute Neutrophil Ct (ANC) 13.87 (1.4-6.9); BASOPHIL % 0.3 % (0.0-0.4); Basophil (Absolute #) 0.04 (0-0.4); Eosinophil (Absolute #) 0 (0-0.5); Hematocrit 45.1 % (42-50); Hemoglobin 14.6 gm/dl (12.5-18.0); Lymphocyte (Absolute #) 1.51 (1.0-4.6); Lymphocytes % 9.5 % (24.0-44.0); Mean Cell Volume 85.9 fl (78-100); Mean Corpuscular Hemoglobin 27.8 pg (26-32); Mean Corpuscular Hgb Concent. 32.4 g/dl (32-36); Mean Platelet Volume 10.3 fl (7.5-11.0); Monocyte (Absolute #) 0.54 (0.0-1.3); Monocytes % 3.4 % (0.0-12.0); Neutrophil % 86.8 % (36.0-66.0); Platelet Count 416 K/mm3 (150-450); Red Blood Count 5.25 M/mm3 (4.1-5.6); Red Cell Distribution Width 15.2 % (11.5-14.0)
--- NOTE | 2020-07-06 09:08 | XRAY ---
Indication: Pneumonia. Comparison: One day earlier. PA/lateral chest obtained. Lateral view limited due to respiration. Little improvement in the diffuse bilateral airspace disease with stable cardiomegaly. No new cardiopulmonary abnormalities.
[2020-07-06] MEDS: ZOLOFT 50 MG TABLET PO SCH (09:20)
--- NOTE | 2020-07-06 09:20 | HP ---
CHIEF COMPLAINT: Shortness of breath. HISTORY OF PRESENT ILLNESS: The patient is a 50 year-old white male patient with history of coronary artery disease, status post coronary artery bypass graft three years ago. He has also had multiple episodes of pneumonia since that time including COVID here several months ago. The patient denies any fever, chills or sweats. He began having some increasing shortness of breath. He came to the emergency room where he was diagnosed with pneumonia and admitted to the hospital. PAST MEDICAL/SURGICAL HISTORY: Significant for CVA involving left hemiparesis, coronary artery disease status post grafting in 2017. He has apparently diabetes mellitus type II, hypertension, gastroesophageal reflux disease, depression. He had a previous liposarcoma and lymph node removal from his leg. Kyphoplasty of L1 and L2. HOME MEDICATIONS: Metoprolol 25 mg b.i.d., aspirin 81 mg a day, Furosemide 40 mg daily, Sertraline 200 mg a day, trazodone 50 mg at night, Plavix 75 mg daily, atorvastatin 80 mg a day, Zestril 2.5 mg a day, vitamin B 400 units two times a day, Metformin 500 mg b.i.d., mirtazapine 15 mg at night, multivitamin daily, omeprazole 20 mg a day. ALLERGIES: NKDA. PHYSICAL EXAMINATION: The patient's vital signs on admission showed temperature 97.9F, pulse 95 and respiratory rate 32. O2 saturation 82% initially. HEENT: Normocephalic, atraumatic. Pupils equal round reactive to light. Extraocular movements intact. Oropharynx is pink and moist. NECK: Supple without lymphadenopathy, thyromegaly or JVD. CHEST: Essentially clear to auscultation presently however on emergency room visit there was noticeably some wheezing and was given treatments after which the patient did improve during his stay. HEART: Regular rate and rhythm without murmurs, rubs or gallops. ABDOMEN: Soft, nontender, nondistended without hepatosplenomegaly or masses. EXTREMITIES: Without cyanosis, clubbing or edema. LAB DATA AND TESTS: The patient's laboratory studies have shown troponin to be 0.029. D-dimer was slightly elevated at 543. Sugar 152, BUN 13, creatinine 0.59. Electrolytes were normal. Liver enzymes were normal. ProBNP was normal at 462. COVID, influenza A/B and RSV were all negative. His white count was 10,000, hemoglobin 13.8, PLT count 268,000. ABG showed a pH of 7.44, pCO2 of 40, pO2 of 80. His x-rays a portable chest revealed diffuse bilateral airspace disease worse in the right upper lobe but no consolidation. He had CT-A of the chest due to his elevated D-dimer which was negative pulmonary embolus, diffuse bilateral airspace disease, cardiomegaly with status post coronary artery bypass graft surgery, incidental fatty liver is noted as well as old granulomatous disease. The patient's EKG showed essentially a sinus rhythm of 95. There is normal axis and somewhat delayed R-wave across precordial leads consistent with previous coronary events. ASSESSMENT: A patient with what appears bilateral airspace disease with fluid concerning for developing pneumonia. The patient had been initially given oxygen at 3 liters to bring the saturations up into the 90's. He was given nebulizer treatments, IV antibiotics and steroid treatments and has improved his overall function ability. He is currently clear in his lungs and feeling better. The patient will continue the current management. We will check echocardiogram and check procalcitonin levels and recheck labs in the morning.
[2020-07-06] MEDS: ECOTRIN 81 MG PO SCH (09:21)
[2020-07-06] MEDS: Zestril 5 MG PO SCH (09:21)
[2020-07-06] MEDS: THERAGRAN MULTIVITAMIN PO SCH (09:21)
[2020-07-06] MEDS: PLAVIX 75 MG Tablet PO SCH (09:22)
[2020-07-06] MEDS: Protonix 40MG Tablet PO SCH (09:22)
[2020-07-06] MEDS: VITAMIN D PO SCH ×3 (09:22→21:30)
[2020-07-06] MEDS: Lasix 40 MG PO SCH (09:22)
[2020-07-06] MEDS: Lopressor 25MG Tab PO SCH ×2 (09:22→21:32)
[2020-07-06] MEDS: Zithromax 500 MG/ 250 ML NaCl Premix 500 MG/250 ML IVPB IV SCH (09:24)
[2020-07-06] MEDS: NON-FORMULARY ITEM PO SCH (09:24)
[2020-07-06 09:36] LABS: ALBUMIN 4.2 g/dL (3.5-5.0); ALKALINE PHOSPHATASE 69 U/L (38-126); ANION GAP 18.9 MEQ/L (5-15); BLOOD UREA NITROGEN 23 mg/dL (9-20); CHLORIDE 97 mmol/L (98-107); Calcium 9.5 mg/dL (8.4-10.2); Carbon Dioxide 27 mmol/L (22-30); Creatinine 1 0.69 mg/dL (0.66-1.25); EST GLOMERULAR FILTRATION RATE > 60.0 ML/MIN; Glucose 307 mg/dL (74-106); Potassium 4.4 mmol/L (3.5-5.1); SGOT/AST 30 U/L (17-59); SGPT/ALT 42 U/L (0-50); SODIUM 139 mmol/L (137-145); Total Protein 7.7 g/dL (6.3-8.2)
[2020-07-06] MEDS: DESYREL 50 MG PO SCH (21:30)
[2020-07-06] MEDS: REMERON 30 MG PO SCH (21:31)
[2020-07-06] MEDS: ZOCOR 20MG PO SCH (21:31)
[2020-07-07] MEDS: Zosyn 3.375 GM Vial 3.375 GM in Sodium Chloride 100ML MINI-BAG PLUS 100 ML IV SCH ×2 (00:09→06:02)
[2020-07-07] MEDS: solu-MEDROL 125 MG IV SCH (06:02)
[2020-07-07] MEDS: DUONEB 0.5-3 MG/3 ml Neb IH PRN (07:27)
[2020-07-07 07:37] VITALS: BP 158/90; PULSE 69; O2SAT 93
[2020-07-07] MEDS: HUMALOG SQ PRN (08:14)
[2020-07-07] MEDS: Glucophage 500 MG PO SCH (08:14)
--- NOTE | 2020-07-07 08:49 | CONS ---
CONSULT DATE: 07/06/2020 HISTORY: Deangelo Blackwell is a 50 year-old male who has been admitted with complaints of cough, shortness of breath and pneumonia. The patient has had multiple cardiac and pulmonary problems in the recent past. He supposedly had COVID-19 in November of 2019 although the patient reported that it did not involve his pulmonary system. He started getting sick about two days prior to this admission with cough and shortness of breath. Since admission he has been placed on oxygen. The patient's chest x-ray as well as CT chest are remarkable for diffuse inflammatory process somewhat typical ground-glass changes seen with COVID although he tested COVID negative at this time. With antibiotics and steroids he has shown clinical improvement and his oxygenation has improved and currently he is being weaned down to 1 liter nasal cannula. PAST MEDICAL HISTORY: Positive for history of coronary artery disease having undergone coronary artery bypass graft surgery in 2016. History of hypertension, diabetes mellitus, CVA involving left side of body. He also has obstructive sleep apnea and uses CPAP at 7 cm of water. PAST SURGICAL HISTORY: As above. PERSONAL AND SOCIAL HISTORY: He is a former smoker who quit smoking in July 2019. MEDICATIONS: Medications are reviewed. ALLERGIES: NKDA. PHYSICAL EXAMINATION: This is a middle aged male who appears comfortable currently. VITAL SIGNS: Temperature 980.2F, heart rate 62, blood pressure 107/73 mm of Mercury. Saturating 93% on 1 liter nasal cannula. HEENT: Normocephalic. Oral exam shows small oropharynx. NECK: Short, supple. CVS: First and second heart sounds are normal, regular and rhythmic. RESPIRATORY: Shows diminished breath sounds, fairly clear. ABDOMEN: Obese. EXTREMITIES: Trace edema is noted. LABORATORY DATA AND TESTS: White count is 10, hemoglobin 13.8, hematocrit 42.2 and PLT 268,000. D-dimer 543. The pH 7.44, pCO2 of 40 and pO2 of 80 on 3 liters nasal cannula. Sodium 139, potassium 4.4, chloride 97, bicarb 27, BUN 23, creatinine 0.7. Radiology tests were reviewed. ASSESSMENT: This is a 50 year old male admitted with: 1) Multi-lobar pneumonia, bacterial versus viral versus inflammatory? 2) Hypoxic respiratory failure. Improving oxygenation. 3) Chronic obstructive pulmonary disease likely mild. 4) Obstructive sleep apnea on [facility]AP [facility]. 5) History of hypertension. 6) Diabetes mellitus. 7) Coronary artery disease. 8) Obesity. RECOMMENDATIONS: 1) The patient has shown remarkable clinical improvement compared to particularly the CT scan of 07/03/2020. In view of this it appears that he may have responded more to steroids than antibiotics. I agree with continue tapering supplemental oxygen. 2) The patient will benefit from somewhat of a prolonged steroid taper something like prednisone 40 mg p.o. daily for four days followed by 30 mg p.o. for four days followed by 20 mg p.o. for four days followed by 10 mg p.o. for four days followed by discontinuation. This is likely to improve the inflammatory changes although the patient will need to carefully his glycemic control while being on steroid therapy. 3) Pulmonary function test and follow up CT scan can be obtained in about four weeks to assess resolution of infiltrates feeling which additional work up would be warranted. 4) I agree with other treatment. The patient has been instructed to follow up with me in about two weeks on discharge or call earlier as needed. I will be available if any questions remained unanswered. Thank you for allowing me to participate in the care of Deangelo Blackwell.
[2020-07-07] MEDS: VITAMIN D PO SCH (09:07)
[2020-07-07] MEDS: THERAGRAN MULTIVITAMIN PO SCH (09:08)
[2020-07-07] MEDS: ECOTRIN 81 MG PO SCH (09:08)
[2020-07-07] MEDS: Lasix 40 MG PO SCH (09:09)
[2020-07-07] MEDS: Lopressor 25MG Tab PO SCH (09:09)
[2020-07-07] MEDS: PLAVIX 75 MG Tablet PO SCH (09:09)
[2020-07-07] MEDS: Protonix 40MG Tablet PO SCH (09:10)
[2020-07-07] MEDS: Zestril 5 MG PO SCH (09:10)
[2020-07-07] MEDS: ZOLOFT 50 MG TABLET PO SCH (09:11)
[2020-07-07] MEDS: Zithromax 500 MG/ 250 ML NaCl Premix 500 MG/250 ML IVPB IV SCH (09:13)
[2020-07-07] MEDS: NON-FORMULARY ITEM PO SCH (09:14)
--- NOTE | 2020-07-07 09:16 | DS ---
DISCHARGE DIAGNOSES: 1) CHRONIC OBSTRUCTIVE PULMONARY DISEASE EXACERBATION. 2) PNEUMONIA. 3) HYPOXIA. 4) CORONARY ARTERY DISEASE. 5) STATUS POST CEREBROVASCULAR ACCIDENT. 6) DIABETES MELLITUS TYPE II. HISTORY: The patient is a 50 year-old white male who presented to the emergency room with complaints of increasing shortness of breath. The patient had previously had COVID several months ago. The patient reports increasing shortness of breath. He presented to the emergency room and diagnosed with pneumonia. HOSPITAL COURSE: The patient was admitted to the medical sahu on Rocephin and Zithromax. We did check his procalcitonin levels which were not elevated. We continued the medications prophylactically. The patient is felt to have chronic obstructive pulmonary disease exacerbation. His oxygen levels did check low at the time of discharge requiring 3 liters at night. He does use CPAP at night as well. He had a consultation from Dr. Vinay Vazquez who agreed with the current medical treatment. The plan is to now send him home on prednisone at 30 mg for five days, 20 mg for five days and 10 mg for five days and follow up with Dr. Vazquez in his office in two weeks. I will see him in my office in one week. The patient will continue on his other home medications and also ordering home oxygen for his chronic obstructive pulmonary disease exacerbation and hypoxia.
--- NOTE | 2020-07-09 11:52 | ECHO ---
DATE OF PROCEDURE: 07/06/2020 CLINICAL INFORMATION: Shortness of breath; rule out heart failure. The M-mode 2D, and Doppler echocardiogram including color flow Doppler is technically difficult. The patient was struggling to breathe and had to sit up. The left ventricle is dilated with a dimension of 6.9 cm. No thrombus is noted. The septal wall thickness is increased at 1.4 cm. The left ventricular posterior wall thickness is increased at 1.9 cm. There is moderately severe left ventricular systolic dysfunction. The ejection fraction is calculated to be 27%. The right ventricle is not well visualized. The left atrium is moderately dilated with a dimension of 5.6 cm. The interatrial septum is intact. The right atrium is not well visualized. The aortic valve opens well. There is no aortic regurgitation. There is mitral valve leaflet thickening associated with mild mitral regurgitation. The tricuspid valve is unremarkable. The pulmonic valve is not well visualized. The aortic root is normal at 3.3 cm. There is no pericardial effusion present. IMPRESSION: 1) SEVERE DILATATION OF THE LEFT VENTRICLE. 2) SEVERE ASYMMETRIC LEFT VENTRICULAR HYPERTROPHY. 3) MODERATELY SEVERE LEFT VENTRICULAR SYSTOLIC DYSFUNCTION. 4) MILD MITRAL REGURGITATION. 5) MODERATE LEFT ATRIAL DILATATION.
== END 2020-07-07 11:29 | disposition home or self-care (01) | DRG 190 ==
LOC: ED 09:44 → MED SURG 13:36
PROVIDERS: ADMIT Family Medicine; ATTEND Family Medicine
DX: J44.1 Chronic obstructive pulmonary disease with (acute) exacerbation (principal); J18.9 Pneumonia, unspecified organism; J96.91 Respiratory failure, unspecified with hypoxia; I69.854 Hemiplegia and hemiparesis following other cerebrovascular disease affecting left non-dominant side; E11.9 Type 2 diabetes mellitus without complications; Z95.1 Presence of aortocoronary bypass graft; Z86.79 Personal history of other diseases of the circulatory system; I10 Essential (primary) hypertension; E78.5 Hyperlipidemia, unspecified; R07.9 Chest pain, unspecified; Z79.899 Other long term (current) drug therapy; Z79.01 Long term (current) use of anticoagulants; G47.30 Sleep apnea, unspecified; Z86.16 Personal history of COVID-19
CPT/HCPCS: 0241U; 36415; 36600; 71045; 71046; 71260; 80048; 80053; 82375; 82803; 82947; 83036; 83605; 83735; 83880; 84145; 84484; 85025; 85027; 85379; 87040; 93005; 93041; 93306; 94640; 94667; 94760; 96374; 99284; 99291; J0456; J1817; J2930; A9270-GY

== ENCOUNTER 2020-07-23 15:37 | Emergency (ER) | payer MEDICAID, OTHER ==
[2020-07-23 16:19] LABS: Appearance SLIGHTLY CLOUDY (CLEAR); Bacteria MODERATE /HPF (NEGATIVE); Bilirubin NEGATIVE (NEGATIVE); Blood SMALL Ery/ul (0-5); Glucose NEGATIVE (NEGATIVE); Ketones NEGATIVE (NEGATIVE); Leukocyte Esterase SMALL (NEGATIVE); Mucus SLIGHT /HPF (NEGATIVE); Nitrite POSITIVE (NEGATIVE); Protein,Urine Dip 100 (Negative); RBC 26-50 /HPF (0-2); Specific Gravity 1.019 (1.005-1.025); Urobilinogen 4 mg/dL (0-1); WBC >100 /HPF (0-5)
--- NOTE | 2020-07-23 16:27 | ERPHSYRPT ---
- History of Present Illness Time Seen by Provider: 07/23/20 15:50 Source: patient Exam Limitations: no limitations Patient Subjective Stated Complaint: Pt states that he has pain in his penis and his testicles that radiates to his abdomen for the past 2 days Triage Nursing Assessment: Pt brought to the ER via EMS, pain for 2 days when urinating and burning in testicles that radiates to his abdomen, vitals wnl, denies sexual relations since February, hx of stroke with left sided deficits, pt has taken AZO, no other issues at this time Physician History: Patient is a 50-year-old male presents to our ED with complaints of dysuria x2 days. Patient also states he has an aching sensation in his testicles. No penile discharge. Last sexual intercourse was approximately 5 to 6 months ago. Patient took a dose of [id number] Azo for dysuria. Patient's urine is observed to be orangeish red in color. Of note patient has a history of CVA with residual left-sided deficit. Patient symptoms are progressive. Symptoms are moderate in intensity. No specific worsening or improving factors. Patient voices no other complaints concerns at this time. Timing/Duration: day(s) (2 days ago) Severity: moderate Modifying Factors: Improves With: nothing Associated Symptoms: other (Testicular pain), No vomiting, No abdominal pain Allergies/Adverse Reactions: No Known Drug Allergies Allergy (Verified 07/23/20 15:53) Home Medications: Metoprolol Tartrate 25 mg PO BID 01/14/13 [History] Aspirin 81 mg PO DAILY 07/13/17 [History] Furosemide 40 mg [Lasix 40 MG] 40 mg PO DAILY 07/13/17 [History] Sertraline HCl 200 mg PO DAILY 07/13/17 [History] Trazodone HCl 50 mg [Desyrel 50 mg] 50 mg PO HS 02/16/19 [History] Clopidogrel Bisulfate 75 mg [PLAVIX 75 MG Tablet] 75 mg PO DAILY 07/27/19 [History] Atorvastatin Calcium 80 mg PO HS 09/16/19 [History] lisinopriL [Zestril] 2.5 mg PO DAILY 09/16/19 [History] Cholecalciferol (Vitamin D3) [Vitamin D] 400 unit PO TID 12/29/20 [History] Metformin HCl 500 mg PO BID 04/14/20 [History] Mirtazapine 15 mg PO HS 04/14/20 [History] Multivitamin 1 each PO DAILY 04/14/20 [History] Omeprazole 20 mg PO DAILY 04/14/20 [History] Hx Tetanus, Diphtheria Vaccination/Date Given: Yes Hx Influenza Vaccination/Date Given: Yes Hx Pneumococcal Vaccination/Date Given: Yes Travel Risk - International Travel Have you traveled outside of the country in past 3 weeks: No - Coronavirus Screening Are you exhibiting any of the following symptoms?: No - Vaccine Status Have you recieved a Covid-19 vaccination: No - Review of Systems Constitutional: No Symptoms, No Fever, No Chills Eyes: No Symptoms Ears, Nose, & Throat: No Symptoms Respiratory: No Symptoms, No Cough, No Dyspnea Cardiac: No Symptoms, No Chest Pain, No Edema, No Syncope Abdominal/Gastrointestinal: No Symptoms, No Abdominal Pain, No Nausea, No Vomiting, No Diarrhea Genitourinary Symptoms: No Symptoms, No Dysuria Musculoskeletal: No Symptoms, No Back Pain, No Neck Pain Skin: No Symptoms, No Rash Neurological: No Symptoms, No Dizziness, No Focal Weakness, No Sensory Changes Psychological: No Symptoms Endocrine: No Symptoms Hematologic/Lymphatic: No Symptoms Immunological/Allergic: No Symptoms All Other Systems: Reviewed and Negative - Past Medical History Pertinent Past Medical History: Yes Neurological History: Stroke, TIA ENT History: Other Cardiac History: Congestive Heart Failure, High Cholesterol, Hypertension, Myocardial Infarction ([place]) Respiratory History: COPD, Sleep Apnea Endocrine Medical History: No Pertinent History Musculoskeletal History: Fractures, Osteoarthritis GI Medical History: Diverticulitis History: No Pertinent History Psycho-Social History: Anxiety, Depression Male Reproductive Disorders: No Pertinent History Other Medical History: CABG x 4, pneumonia, [place] x 3 breathing machine at night, 2 cracked vertabra, liposarcoma, tinnitus, covid in november - Past Surgical History Past Surgical History: Yes Neuro Surgical History: No Pertinent History Cardiac: CABG, Cardiac Catheterization Respiratory: No Pertinent History Gastrointestinal: No Pertinent History Genitourinary: No Pertinent History Musculoskeletal: Other Male Surgical History: No Pertinent History Other Surgical History: tonsils, tumors removed from leg and lymph nodes (cancer)liposarcoma, kyphoplasty L1-L2 - Social History Smoking Status: Former smoker How long have you smoked: years Exposure to second hand smoke: No Alcohol Use: Socially Drug Use: none Patient Lives Alone: No Significant Family History: heart disease, hypertension - Nursing Vital Signs Nursing Vital Signs: Initial Vital Signs Temperature 99.1 F 07/23/20 15:42 Pulse Rate 91 H 07/23/20 15:42 Blood Pressure 136/78 07/23/20 15:42 O2 Sat by Pulse Oximetry 96 07/23/20 15:42 Pain Scale Pain Intensity 7 - Physical Exam General Appearance: no apparent distress, alert Eye Exam: PERRL/EOMI, eyes nml inspection Ears, Nose, Throat Exam: normal ENT inspection, TMs normal, pharynx normal, moist mucous membranes Neck Exam: normal inspection, non-tender, supple, full range of motion Respiratory Exam: normal breath sounds, lungs clear, No respiratory distress Cardiovascular Exam: regular rate/rhythm, normal heart sounds, normal peripheral pulses Gastrointestinal/Abdomen Exam: soft, normal bowel sounds, No tenderness, No mass Male Genitalia Exam: normal genitalia Back Exam: normal inspection, normal range of motion, No CVA tenderness, No vertebral tenderness Extremity Exam: normal inspection, normal range of motion, pelvis stable Neurologic Exam: alert, oriented x 3, cooperative, normal mood/affect, nml cerebellar function, nml station & gait, sensation nml, No motor deficits Skin Exam: normal color, warm, dry, No rash Lymphatic Exam: No adenopathy SpO2 Interpretation: normal SpO2: 96 O2 Delivery: Room Air - Course Nursing assessment & vital signs reviewed: Yes Ordered Tests: Active Orders 24 hr Category Date Time Status TESTICLE [US] Stat Exams 07/23/20 16:41 Taken CULTURE,URINE Stat Lab 07/23/20 16:01 Received UA W/RFX UR CULTURE Stat Lab 07/23/20 16:01 Completed Medication Summary Discontinued Medications Generic Name Dose Route Start Last Admin Trade Name Freq PRN Reason Stop Dose Admin Ciprofloxacin 500 mg 07/23/20 16:38 07/23/20 16:43 Cipro 500 Mg PO 07/23/20 16:39 500 mg ONCE STA Administration Ciprofloxacin Confirm 07/23/20 16:42 Cipro 500 Mg Administered 07/23/20 16:43 Dose 500 mg .ROUTE .3P [employer] Lab/Rad Data: Laboratory Results 07/23/20 Range/Units 16:01 Urine Color HINA (YELLOW) Urine Appearance SLIGHTLY CLOUDY (CLEAR) Urine pH 7.0 (5-6) Ur Specific [place] 1.019 (1.005-1.025) Urine Protein 100 (Negative) Urine Ketones NEGATIVE (NEGATIVE) Urine Blood SMALL (0-5) Ángel/ul Urine Nitrite POSITIVE (NEGATIVE) Urine Bilirubin NEGATIVE (NEGATIVE) Urine Urobilinogen 4 (0-1) mg/dL Ur Leukocyte Esterase SMALL (NEGATIVE) Urine WBC (Auto) >100 (0-5) /HPF Urine RBC (Auto) 26-50 (0-2) /HPF U Epithel Cells (Auto) NONE (FEW) /HPF Urine Bacteria (Auto) MODERATE (NEGATIVE) /HPF Urine Mucus (Auto) SLIGHT (NEGATIVE) /HPF Urine Culture Reflexed YES (NO) Urine Glucose NEGATIVE (NEGATIVE) mg/dL - Progress Progress: improved Progress Note: Patient reassessed. He feels well. UA reveals UTI. Patient received a dose of oral ciprofloxacin. Ultrasound negative for torsion. GC chlamydia pending. We will contact patient if positive. Patient requesting discharge. Will discharge at this time. Patient voices no other complaints concerns at this time. Portions of this note were created with voice recognition technology. There may be grammatical, spelling, punctuation or sound alike errors 07/23/20 17:10 Counseled pt/family regarding: lab results, diagnosis, need for follow-up - Departure Departure Disposition: Home Clinical Impression: UTI (urinary tract infection) Condition: Stable Critical Care Time: No Referrals: ALESHIA CALVERT [Primary Care Provider] - Additional Instructions: Discharge/Care Plan LORENZO BLAIR was seen on 07/23/20 in the Emergency Room. The patient was counseled regarding Diagnosis,Lab results, Imaging studies, need for follow up and when to return to the Emergency Room. Prescriptions given: Discharge Note I have spoken with the patient and/or caregivers. I have explained the patient's condition, diagnosis and treatment plan based on the information available to me at this time. I have answered the patient's and/or caregiver's questions and addressed any concerns. The patient and/or caregivers have as good understanding of the patient's diagnosis, condition and treatment plan as can be expected at this point. The vital signs have been stable. The patient's condition is stable and appropriate for discharge from the emergency department. The patient will pursue further outpatient evaluation with the primary care physician or other designated or consulting physician as outlined in the discharge instructions. The patient and/or caregivers are agreeable to this plan of care and follow-up instructions have been explained in detail. The patient and/or caregivers have received these instruction. The patient/and or caregivers are aware that any significant change in condition or worsening of symptoms should prompt an immediate return to this or the closest emergency department or call 911. Prescriptions: Ciprofloxacin [Cipro 500 MG] 500 mg PO BID 10 Days #20 tablet
[2020-07-23] MEDS ORDERED: Cipro 500 MG PO STA (16:38)
[2020-07-23] MEDS ORDERED: Cipro 500 MG ONE (16:42)
[2020-07-23 16:45] VITALS: BP 140/82
[2020-07-23] MEDS ORDERED: TYLENOL EXTRA STRENGTH 500 MG PO STA (17:12)
--- NOTE | 2020-07-23 17:16 | XRAY ---
Indication: Pain. UTI. Two-dimensional testicular sonogram performed. Comparison: None Both testicles homogeneous in echogenicity with normal color perfusion. Right testicle measures 4.6 x 2.3 x 2.9 cm and the left measures 4.4 x 2.3 x 3.0 cm. Left and right epididymis sonographically unremarkable. Tiny nonspecific bilateral hydroceles. No suspicious extratesticular mass. Impression: Negative testicular sonogram.
[2020-07-23] MEDS ORDERED: TYLENOL EXTRA STRENGTH 500 MG ONE (17:17)
[2020-07-23 17:27] VITALS: PULSE 89; O2SAT 97
[2020-07-23 17:53] LABS: CHLAMYDIA DNA NOT DETECTED (NEGATIVE); GC DNA Probe NOT DETECTED (NEGATIVE)
== END 2020-07-23 17:42 | disposition home or self-care (01) ==
LOC: ED 15:37
DX: N39.0 Urinary tract infection, site not specified (principal); I10 Essential (primary) hypertension; I25.2 Old myocardial infarction; Z79.899 Other long term (current) drug therapy
CPT/HCPCS: 76870; 81001; 87077; 87086; 87186; 87491; 87591; 99284; A9270-GY

== ENCOUNTER 2020-08-24 18:14 | Observation (INO) | payer MEDICAID ==
--- NOTE | 2020-08-24 18:29 | ERPHSYRPT ---
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 Patient arrived via EMS. EMS reports that upon their arrival patie nt was 70% on room air. Patient is supposed to wear 4 L nasal cannula 24 hours/day however patient was not wearing his nasal cannula when EMS arrived. Patient was diagnosed with pneumonia last month. Patient was at [facility]. Patient was tested Covid negative. Patient was initially using accessory muscles to breathe. However once he was placed on nonrebreather mask accessory muscle use was no longer required. No associated chest pain. No nausea vomiting or diaphoresis. No trauma. No fever. Patient voices no other complaints concerns at this time. Timing/Duration: today Activities at Onset: none Severity of Dyspnea-Max: moderate Severity of Dyspnea-Current: moderate Possible Cause: occasional episodes Modifying Factors: Improves With: nothing Associated Symptoms: denies symptoms Allergies/Adverse Reactions: No Known Drug Allergies Allergy (Verified 08/24/20 18:30) Home Medications: Metoprolol Tartrate 25 mg PO BID 01/14/13 [History] Aspirin 81 mg PO DAILY 07/13/17 [History] Furosemide 40 mg [Lasix 40 MG] 40 mg PO DAILY 07/13/17 [History] Sertraline HCl 50 mg PO DAILY 07/13/17 [History] Trazodone HCl 50 mg [Desyrel 50 mg] 50 mg PO HS 02/16/19 [History] Clopidogrel Bisulfate 75 mg [PLAVIX 75 MG Tablet] 75 mg PO DAILY 07/27/19 [History] Atorvastatin Calcium 80 mg PO HS 09/16/19 [History] lisinopriL [Zestril] 2.5 mg PO DAILY 09/16/19 [History] Cholecalciferol (Vitamin D3) [Vitamin D] 400 unit PO TID 04/14/20 [History] Metformin HCl 500 mg PO BID 04/14/20 [History] Albuterol Sulfate [Albuterol Sulfate Hfa] 2 inh PO Q6H 08/24/20 [History] Hx Tetanus, Diphtheria Vaccination/Date Given: Yes Hx Influenza Vaccination/Date Given: Yes Hx Pneumococcal Vaccination/Date Given: Yes Travel Risk - Vaccine Status Have you recieved a Covid-19 vaccination: No - Past Medical History Pertinent Past Medical History: Yes Neurological History: Stroke, TIA ENT History: Other Cardiac History: Congestive Heart Failure, High Cholesterol, Hypertension, Myocardial Infarction ([place]) Respiratory History: COPD, Sleep Apnea Endocrine Medical History: No Pertinent History Musculoskeletal History: Fractures, Osteoarthritis GI Medical History: Diverticulitis History: No Pertinent History Psycho-Social History: Anxiety, Depression Male Reproductive Disorders: No Pertinent History Other Medical History: CABG x 4, pneumonia, [place] x 3 breathing machine at night, 2 cracked vertabra, liposarcoma, tinnitus, covid in november - Past Surgical History Past Surgical History: Yes Neuro Surgical History: No Pertinent History Cardiac: CABG, Cardiac Catheterization Respiratory: No Pertinent History Gastrointestinal: No Pertinent History Genitourinary: No Pertinent History Musculoskeletal: Other Male Surgical History: No Pertinent History Other Surgical History: tonsils, tumors removed from leg and lymph nodes (cancer)liposarcoma, kyphoplasty L1-L2 - Social History Smoking Status: Former smoker How long have you smoked: years Exposure to second hand smoke: No Alcohol Use: Socially Drug Use: none Patient Lives Alone: No Significant Family History: heart disease, hypertension - Nursing Vital Signs Nursing Vital Signs: Initial Vital Signs Temperature 98.4 F 08/24/20 18:16 Pulse Rate 84 08/24/20 18:16 Respiratory Rate 30 H 08/24/20 18:16 Blood Pressure 124/68 08/24/20 18:16 O2 Sat by Pulse Oximetry 98 08/24/20 18:16 Pain Scale Pain Intensity 0 - Physical Exam General Appearance: no apparent distress, alert, obese, other (Patient lying in bed. Nonrebreather facemask applied. O2 sat 90%. No respiratory distress.) Eye Exam: PERRL/EOMI, eyes nml inspection, scleral icterus, pale conjunctivae Ears, Nose, Throat Exam: hearing grossly normal, normal ENT inspection, normal pharynx Neck Exam: normal inspection, supple, No non-tender, No JVD Respiratory Exam: airway intact, other (Coarse breath sounds bilaterally.), No accessory muscle use Cardiovascular/Chest Exam: normal heart sounds, regular rate/rhythm Abdominal/Gastrointestinal Exam: soft, No tenderness, No distention, No mass Extremity Exam: non-tender, normal range of motion, normal inspection, no calf tenderness, no pedal edema, swelling (Left lower extremity swelling.) Neurologic Exam: alert, oriented x 3, cooperative, communications marketing intern II-XII nml as tested, sensation nml, No motor deficits Skin Exam: normal color, warm, No dry SpO2 Interpretation: normal SpO2: 98 O2 Delivery: Non-rebreather - Course Nursing assessment & vital signs reviewed: Yes EKG Interpreted by Me: RATE (81), Sinus Rhythm, NORMAL AXIS, NORMAL INTERVALS - CT Exams Chest CT Interpretation: Tele-radiologist Report (Care 05/20/1919 1P eval limited due to suboptimal contrast opacification no obvious central PE. Interval worsening diffuse bilateral airspace disease and tiny left effusion. Stable centimeters and fatty liver.) - Radiology Ultrasound Exam Venous Lower Extremity Ultrasound: discussed w/radiologist (Per growth media mixer mushroom left lower extremity negative for DVT.) Ordered Tests: Active Orders 24 hr Category Date Time Status Associate Software Engineer STAT Care 08/24/20 18:27 Active EKG-ER Only STAT Care 08/24/20 18:26 Active IV Insertion STAT Care 08/24/20 18:26 Active IV Insertion-2nd Peripheral STAT Care 08/24/20 18:33 Active Oxygen-ED Only NON-REBREATHER 100% Care 08/24/20 20:15 Active Oxygen-ED Only Nasal Cannula 6 lpm Care 08/24/20 20:16 Active Pulse Oximetry (ED) STAT Care 08/24/20 18:26 Active CHEST 1 VIEW (PORTABLE) Stat Exams 08/24/20 18:27 Taken CHEST WITH CONTRAST [CT] Stat Exams 08/24/20 20:36 Taken VENOUS UNILAT/LIMITED EXTREMIT [US] Stat Exams 08/24/20 18:38 Taken BLOOD CULTURE Stat Lab 08/24/20 19:30 Received CBC W DIFF Stat Lab 08/24/20 18:22 Completed CMP Stat Lab 08/24/20 18:22 Completed MAGNESIUM Stat Lab 08/24/20 18:22 Completed NT PRO BNP Stat Lab 08/24/20 18:22 Completed TROPONIN Q3H Lab 08/24/20 18:22 Completed TROPONIN Q3H Lab 08/24/20 21:55 Received TROPONIN Q3H Lab 08/25/20 00:30 Ordered TROPONIN Q3H Lab 08/25/20 03:30 Ordered TROPONIN Q3H Lab 08/25/20 06:30 Ordered UA W/RFX UR CULTURE Stat Lab 08/24/20 19:18 Completed Medication Summary Generic Name Dose Route Start Last Admin Trade Name Celina PRN Reason Stop Dose Admin Magnesium Sulfate/Dextrose 100 mls @ 100 mls/hr 08/24/20 19:45 08/24/20 20:26 Magnesium 1 Gm / 100 Ml D5w IV 08/24/20 21:44 100 mls/hr Q1H USHA Administration Vancomycin HCl 1 gm in 200 mls @ 125 mls/hr 08/24/20 22:30 Vancomycin 1 Gram/200 Ml Bag IV 08/25/20 00:05 STAT ONE Discontinued Medications Generic Name Dose Route Start Last Admin Trade Name Aroldoq PRN Reason Stop Dose Admin Methylprednisolone Sodium Succinate 125 mg 08/24/20 19:41 08/24/20 19:51 Solu-Medrol 125 Mg IV 08/24/20 19:42 125 mg STAT ONE Administration Methylprednisolone Sodium Succinate Confirm 08/24/20 19:48 Solu-Medrol 125 Mg Administered 08/24/20 19:49 Dose 125 mg .ROUTE .[employer] ONE Lab/Rad Data: Laboratory Result Diagrams 08/24/20 18:22 08/24/20 18:22 Laboratory Results 08/24/20 08/24/20 08/24/20 Range/Units 21:55 20:20 19:18 WBC (4.0-10.5) K/mm3 RBC (4.1-5.6) M/mm3 Hgb (12.5-18.0) gm/dl Hct (42-50) % MCV (78-100) fl MCH (26-32) pg MCHC (32-36) g/dl RDW (11.5-14.0) % Plt Count (150-450) K/mm3 MPV (7.5-11.0) fl Gran % (36.0-66.0) % Eos # (Auto) (0-0.5) Absolute Lymphs (auto) (1.0-4.6) Absolute Monos (auto) (0.0-1.3) Lymphocytes % (24.0-44.0) % Monocytes % (0.0-12.0) % Eosinophils % (0.00-5.0) % Basophils % (0.0-0.4) % Absolute Granulocytes (1.4-6.9) Basophils # (0-0.4) Sodium (137-145) mmol/L Potassium (3.5-5.1) mmol/L Chloride (98-107) mmol/L Carbon Dioxide (22-30) mmol/L Anion Gap (5-15) MEQ/L BUN (9-20) mg/dL Creatinine (0.66-1.25) mg/dL Estimated GFR ML/MIN Glucose (74-106) mg/dL Calcium (8.4-10.2) mg/dL Magnesium (1.6-2.3) mg/dL Total Bilirubin (0.2-1.3) mg/dL AST (17-59) U/L ALT (0-50) U/L Alkaline Phosphatase (38-126) U/L Troponin I 0.019 (0.000-0.034) ng/mL NT-Pro-B Natriuret Pep (0-900) pg/mL Serum Total Protein (6.3-8.2) g/dL Albumin (3.5-5.0) g/dL Urine Color YELLOW (YELLOW) Urine Appearance SLIGHTLY CLOUDY (CLEAR) Urine pH 6.0 (5-6) Ur Specific [place] 1.018 (1.005-1.025) Urine Protein NEGATIVE (Negative) Urine Ketones NEGATIVE (NEGATIVE) Urine Blood NEGATIVE (0-5) Ángel/ul Urine Nitrite NEGATIVE (NEGATIVE) Urine Bilirubin NEGATIVE (NEGATIVE) Urine Urobilinogen 2 (0-1) mg/dL Ur Leukocyte Esterase NEGATIVE (NEGATIVE) Urine WBC (Auto) 0-2 (0-5) /HPF Urine RBC (Auto) NONE (0-2) /HPF U Epithel Cells (Auto) NONE (FEW) /HPF Urine Bacteria (Auto) NONE (NEGATIVE) /HPF Calcium Oxalate Crystal 3-5 (NEGATIVE) /HPF Urine Mucus (Auto) SLIGHT (NEGATIVE) /HPF Urine Culture Reflexed NO (NO) Urine Glucose NEGATIVE (NEGATIVE) mg/dL Influenza Type A Ag NEGATIVE (NEGATIVE) Influenza Type B Ag NEGATIVE (NEGATIVE) RSV (PCR) NEGATIVE (Negative) SARS-CoV-2 (PCR) NEGATIVE (NEGATIVE) 08/24/20 08/24/20 08/24/20 Range/Units 18:22 18:22 18:22 WBC 7.9 (4.0-10.5) K/mm3 RBC 4.58 (4.1-5.6) M/mm3 Hgb 12.8 (12.5-18.0) gm/dl Hct 39.7 L (42-50) % MCV 86.7 (78-100) fl MCH 27.9 (26-32) pg MCHC 32.2 (32-36) g/dl RDW 16.4 H (11.5-14.0) % Plt Count 155 (150-450) K/mm3 MPV 10.5 (7.5-11.0) fl Gran % 73.7 H (36.0-66.0) % Eos # (Auto) 0.33 (0-0.5) Absolute Lymphs (auto) 1.27 (1.0-4.6) Absolute Monos (auto) 0.43 (0.0-1.3) Lymphocytes % 16.1 L (24.0-44.0) % Monocytes % 5.4 (0.0-12.0) % Eosinophils % 4.2 (0.00-5.0) % Basophils % 0.6 (0.0-0.4) % Absolute Granulocytes 5.83 (1.4-6.9) Basophils # 0.05 (0-0.4) Sodium 137 (137-145) mmol/L Potassium 3.7 (3.5-5.1) mmol/L Chloride 96 L (98-107) mmol/L Carbon Dioxide 35 H (22-30) mmol/L Anion Gap 9.4 (5-15) MEQ/L BUN 9 (9-20) mg/dL Creatinine 0.58 L (0.66-1.25) mg/dL Estimated GFR > 60.0 ML/MIN Glucose 209 H (74-106) mg/dL Calcium 9.3 (8.4-10.2) mg/dL Magnesium 1.5 L (1.6-2.3) mg/dL Total Bilirubin 0.50 (0.2-1.3) mg/dL AST 23 (17-59) U/L ALT 24 (0-50) U/L Alkaline Phosphatase 57 (38-126) U/L Troponin I 0.013 (0.000-0.034) ng/mL NT-Pro-B Natriuret Pep 279 (0-900) pg/mL Serum Total Protein 6.6 (6.3-8.2) g/dL Albumin 3.7 (3.5-5.0) g/dL Urine Color (YELLOW) Urine Appearance (CLEAR) Urine pH (5-6) Ur Specific [place] (1.005-1.025) Urine Protein (Negative) Urine Ketones (NEGATIVE) Urine Blood (0-5) Ángel/ul Urine Nitrite (NEGATIVE) Urine Bilirubin (NEGATIVE) Urine Urobilinogen (0-1) mg/dL Ur Leukocyte Esterase (NEGATIVE) Urine WBC (Auto) (0-5) /HPF Urine RBC (Auto) (0-2) /HPF U Epithel Cells (Auto) (FEW) /HPF Urine Bacteria (Auto) (NEGATIVE) /HPF Calcium Oxalate Crystal (NEGATIVE) /HPF Urine Mucus (Auto) (NEGATIVE) /HPF Urine Culture Reflexed (NO) Urine Glucose (NEGATIVE) mg/dL Influenza Type A Ag (NEGATIVE) Influenza Type B Ag (NEGATIVE) RSV (PCR) (Negative) SARS-CoV-2 (PCR) (NEGATIVE) - Progress Progress: improved Air Movement: good Progress Note: While in our ED patient was on a nonrebreather. Patient sats started to drop. Patient was started on a high flow nasal cannula. Saturations improved patient felt better. O2 sat on nonrebreather 96%. In light of this change we scan patient's chest to rule out PE. CT chest negative for PE however it appears the patient has worsening pneumonia. Blood cultures obtained. Vancomycin and Zosyn ordered. Magnesium was low. Magnesium was replaced via IV. Case discussed with Dr. Dickerson who accepts admission to observation. Patient is Covid negative. Plan of care discussed with patient. He agrees to admission to [facility] for further evaluation and treatment. 08/24/20 22:33 Blood Culture(s) Obtained: No Antibiotics given: No Discussed with : Selin Will see patient in: hospital (observation) Counseled pt/family regarding: lab results, diagnosis, rad results - Departure Departure Disposition: Observation Clinical Impression: Hypoxia, Hypomagnesemia, Pneumonia, Shortness of breath Condition: Stable Critical Care Time: No Referrals: ALESHIA DICKERSON [Primary Care Provider] -
[2020-08-24 18:40] LABS: Absolute Neutrophil Ct (ANC) 5.83 (1.4-6.9); BASOPHIL % 0.6 % (0.0-0.4); Basophil (Absolute #) 0.05 (0-0.4); Eosinophil % 4.2 % (0.00-5.0); Eosinophil (Absolute #) 0.33 (0-0.5); Hematocrit 39.7 % (42-50); Hemoglobin 12.8 gm/dl (12.5-18.0); Lymphocyte (Absolute #) 1.27 (1.0-4.6); Lymphocytes % 16.1 % (24.0-44.0); Mean Cell Volume 86.7 fl (78-100); Mean Corpuscular Hemoglobin 27.9 pg (26-32); Mean Corpuscular Hgb Concent. 32.2 g/dl (32-36); Mean Platelet Volume 10.5 fl (7.5-11.0); Monocyte (Absolute #) 0.43 (0.0-1.3); Monocytes % 5.4 % (0.0-12.0); Neutrophil % 73.7 % (36.0-66.0); Platelet Count 155 K/mm3 (150-450); Red Blood Count 4.58 M/mm3 (4.1-5.6); Red Cell Distribution Width 16.4 % (11.5-14.0); White Blood Count 7.9 K/mm3 (4.0-10.5)
[2020-08-24 19:06] LABS: ALBUMIN 3.7 g/dL (3.5-5.0); ALKALINE PHOSPHATASE 57 U/L (38-126); ANION GAP 9.4 MEQ/L (5-15); BLOOD UREA NITROGEN 9 mg/dL (9-20); CHLORIDE 96 mmol/L (98-107); Calcium 9.3 mg/dL (8.4-10.2); Carbon Dioxide 35 mmol/L (22-30); Creatinine 1 0.58 mg/dL (0.66-1.25); EST GLOMERULAR FILTRATION RATE > 60.0 ML/MIN; Glucose 209 mg/dL (74-106); MAGNESIUM 1.5 mg/dL (1.6-2.3); NT PRO BNP 279 pg/mL (0-900); Potassium 3.7 mmol/L (3.5-5.1); SGOT/AST 23 U/L (17-59); SGPT/ALT 24 U/L (0-50); SODIUM 137 mmol/L (137-145); Total Protein 6.6 g/dL (6.3-8.2)
[2020-08-24] MEDS ORDERED: solu-MEDROL 125 MG IV ONE (19:41)
[2020-08-24] MEDS ORDERED: solu-MEDROL 125 MG ONE (19:48)
[2020-08-24] MEDS ORDERED: Magnesium 1 Gm / 100 Ml D5W*** 100 ML IV ONE ×2 (19:48→20:24)
[2020-08-24] MEDS: Magnesium 1 Gm / 100 Ml D5W*** 100 ML IV SCH ×2 (19:51→20:26)
[2020-08-24 20:02] LABS: Appearance SLIGHTLY CLOUDY (CLEAR); Bilirubin NEGATIVE (NEGATIVE); Blood NEGATIVE Ery/ul (0-5); Glucose NEGATIVE (NEGATIVE); Ketones NEGATIVE (NEGATIVE); Leukocyte Esterase NEGATIVE (NEGATIVE); Mucus SLIGHT /HPF (NEGATIVE); Nitrite NEGATIVE (NEGATIVE); Protein,Urine Dip NEGATIVE (Negative); Specific Gravity 1.018 (1.005-1.025); Urobilinogen 2 mg/dL (0-1); WBC 0-2 /HPF (0-5)
[2020-08-24 21:12] LABS: INFLUENZA A NEGATIVE (NEGATIVE); INFLUENZA B NEGATIVE (NEGATIVE); RESPIRATORY SYNCTIAL VIRUS NEGATIVE (Negative)
[2020-08-24] MEDS ORDERED: VANCOMYCIN 1 GRAM/200 ML BAG 1 GM/200 ML PIGGYBACK IV ONE ×2 (22:30→22:32)
[2020-08-24] MEDS ORDERED: Zosyn 3.375 GM Vial IV ONE (22:31)
[2020-08-24] MEDS ORDERED: Sodium Chloride 100ML MINI-BAG PLUS 100 ML IV ONE (22:31)
[2020-08-24] MEDS ORDERED: Zosyn 3.375 GM Vial 3.375 GM in Sodium Chloride 100ML MINI-BAG PLUS 100 ML IV ONE (22:31)
[2020-08-25] MEDS ORDERED: DUONEB 0.5-3 MG/3 ml Neb IH ONE (00:11)
[2020-08-25] MEDS ORDERED: PROVENTIL 2.5 MG/3 ML NEB IH PRN (00:13)
[2020-08-25] MEDS: DUONEB 0.5-3 MG/3 ml Neb IH SCH ×3 (00:20→08:30)
[2020-08-25 00:33] LABS: A-aADO2 214; ABG HEMOGLOBIN 15.3; ABG POTASSIUM 4.5 (3.5-5.1); ARTERIAL BLD GAS O2 SATURATION 97.4 % (95-100); ARTERIAL BLOOD GAS BASE EXCESS 5.5 (-2.0-2.0); ARTERIAL BLOOD GAS FIO2 50 %; ARTERIAL BLOOD GAS PCO2 48 mmHg (35-45); ARTERIAL BLOOD GAS PO2 83 mmHg (75-100); ARTERIAL BLOOD GAS pH 7.42 (7.35-7.45); CARBOXYHEMOGLOBIN 1.7 % THgb (0.0-6.9); HCO3- 31.1 (22-28); HGB O2 SAT 94.9 g/dF (94-100); Methhemoglobin 0.9 % (1.4-1.5)
[2020-08-25 00:34] LABS: ABG SITE RIGHT BRACHIAL
[2020-08-25 03:44] LABS: ALBUMIN 3.7 g/dL (3.5-5.0); ALKALINE PHOSPHATASE 70 U/L (38-126); ANION GAP 10.2 MEQ/L (5-15); BLOOD UREA NITROGEN 7 mg/dL (9-20); CHLORIDE 98 mmol/L (98-107); Calcium 9.1 mg/dL (8.4-10.2); Carbon Dioxide 30 mmol/L (22-30); Creatinine 1 0.49 mg/dL (0.66-1.25); EST GLOMERULAR FILTRATION RATE > 60.0 ML/MIN; Glucose 336 mg/dL (74-106); MAGNESIUM 1.9 mg/dL (1.6-2.3); Potassium 4.5 mmol/L (3.5-5.1); SGOT/AST 21 U/L (17-59); SGPT/ALT 26 U/L (0-50); SODIUM 133 mmol/L (137-145); Total Protein 6.6 g/dL (6.3-8.2)
[2020-08-25 04:04] LABS: Hematocrit 40.2 % (42-50); Hemoglobin 12.9 gm/dl (12.5-18.0); Mean Cell Volume 86.1 fl (78-100); Mean Corpuscular Hemoglobin 27.6 pg (26-32); Mean Corpuscular Hgb Concent. 32.1 g/dl (32-36); Platelet Count 163 K/mm3 (150-450); Red Blood Count 4.67 M/mm3 (4.1-5.6); White Blood Count 7.8 K/mm3 (4.0-10.5)
[2020-08-25] MEDS ORDERED: PHARMACY DOSING REQUEST MC ONE (07:51)
[2020-08-25] MEDS ORDERED: PHARMACY DOSING REQUIRED: VANCOMYCIN IV STA (07:51)
[2020-08-25] MEDS ORDERED: VANCOMYCIN 1.5 GRAM/300 ML BAG 1.5 GM/300 ML PIGGYBACK IV SCH (08:00)
[2020-08-25] MEDS: HUMALOG SQ PRN ×2 (08:42→11:45)
[2020-08-25] MEDS: solu-MEDROL 125 MG IV SCH ×2 (08:42→13:03)
--- NOTE | 2020-08-25 08:45 | XRAY ---
Indication: Respiratory distress. Low oxygenation. Multiple contiguous axial images obtained through the chest using 100 cc Isovue 370 contrast and PE protocol. Comparison: July 01, 2020. There is suboptimal opacification of the pulmonary arteries and mild respiration artifact limiting evaluation for pulmonary embolus. No obvious central pulmonary embolus. Heart remains enlarged with CABG surgery. Aorta normal in course and caliber. Stable tiny right hilar calcified node. No pathologic mediastinal/hilar lymphadenopathy. Lungs demonstrates worsening diffuse bilateral airspace disease with tiny left effusion. Bony thorax intact again with flowing osteophytes throughout the spine and sternotomy wires. Limited upper abdomen again demonstrates fatty liver with splenic calcified granulomas. Impression: 1. Pulmonary embolus evaluation limited due to suboptimal contrast opacification and respiration artifact. No obvious central pulmonary embolus. 2. Worsening diffuse bilateral airspace disease and tiny left effusion. 3. Again cardiomegaly, fatty liver, and old granulomatous disease.
--- NOTE | 2020-08-25 08:47 | XRAY ---
Indication: Short of breath. Comparison: July 06, 2020. Portable chest is now underinflated again with diffuse bilateral airspace disease and CT proven left effusion. Heart remains enlarged again with CABG surgery.
--- NOTE | 2020-08-25 08:47 | XRAY ---
Indication: Short of breath. Left leg DVT. Two-dimensional sonogram and color Doppler imaging of the major venous vessels of the left leg was performed. Comparison: None No thrombus seen in the examined deep venous vessels of the left leg including greater saphenous vein. Veins demonstrates normal compressibility. Venous waveforms are normal with and without augmentation. Impression: Left leg negative for DVT. Comment: Preliminary report was given.
[2020-08-25] MEDS ORDERED: MEDICATION INTERVENTION PO SCH (09:30)
[2020-08-25] MEDS ORDERED: Ventolin Hfa MDI IH SCH (09:30)
[2020-08-25] MEDS ORDERED: NON-FORMULARY ITEM (Lisinopril [Zestril] 2.5 MG) PO SCH (10:00)
[2020-08-25] MEDS ORDERED: Lasix 40 MG PO SCH (10:00)
[2020-08-25] MEDS ORDERED: PLAVIX 75 MG Tablet PO SCH (10:00)
[2020-08-25] MEDS ORDERED: VITAMIN D PO SCH (10:00)
[2020-08-25] MEDS ORDERED: NON-FORMULARY ITEM (Aspirin [Aspirin] 81 MG) PO SCH (10:00)
[2020-08-25] MEDS ORDERED: Zestril 5 MG PO SCH (10:00)
[2020-08-25] MEDS ORDERED: Lopressor 25MG Tab PO SCH (10:00)
[2020-08-25] MEDS ORDERED: ZOLOFT 50 MG TABLET PO SCH (10:00)
[2020-08-25] MEDS ORDERED: Glucophage 500 MG PO SCH (10:00)
[2020-08-25] MEDS ORDERED: ECOTRIN 81 MG PO SCH (10:00)
--- NOTE | 2020-08-25 10:11 | HP ---
CHIEF COMPLAINT: Shortness of breath. HISTORY OF PRESENT ILLNESS: The patient is a 50 year-old white male patient who reports he has been having trouble over the last month having increasing shortness of breath. He reports prior to this time he has had no breathing problems. He is on home oxygen presently. He has seen Dr. Vinay Vazquez and in fact saw him approximately five days ago. He was given a prescription for Symbicort but has been waiting for the [facility] to give him his medications. Apparently the patient [facility] and I have seen him only occasionally. The patient apparently was on 70% on room air by the time EMS arrived at his house as he was not wearing oxygen at the time. The patient otherwise denies any fever, chills or sweats. He reports he has had persistent pneumonia problem that has just not gone away. The patient is apparently newly diagnosed with diabetes. He was started on Metformin which he has only been taking once a day instead of twice a day as instructed. PAST MEDICAL/SURGICAL HISTORY: Otherwise significant for congestive heart failure, hyperlipidemia, hypertension, previous myocardial infarction, chronic obstructive pulmonary disease, sleep apnea. He has diverticulitis, anxiety, depression. He has had pneumonia four times. He has had previous cracked vertebra, liposarcoma. Coronary artery bypass graft, cardiac catheterization. HOME MEDICATIONS: Aspirin 81 mg daily, Lasix 40 mg daily, Sertraline 50 mg daily, trazodone 50 mg at night, Plavix 75 mg daily, atorvastatin 80 mg a day, lisinopril 2.5 mg a day. He takes vitamin D3 three times a day 400 units, Metformin 500 mg instructed to be twice a day but apparently has been only once a day, Albuterol on PRN basis. ALLERGIES: NKDA. PHYSICAL EXAMINATION: The patient's vital signs on admission showed his temperature to be 98.4F, pulse 84, respiratory rate 30, blood pressure 124/68. O2 saturation was 98% on nonrebreather. HEENT: Normocephalic, atraumatic. He is currently wearing oxygen via Oxymizer, receiving a nebulizer treatment. His pupils appear to be equal round reactive to light. NECK: Supple without lymphadenopathy, thyromegaly or JVD. CHEST: He has bilateral wheezes. HEART: Regular rate and rhythm. No murmurs, rubs or gallops are heard. ABDOMEN: Soft. No palpable masses. EXTREMITIES: Without cyanosis or clubbing. There is mild edema in lower extremities. NEUROLOGIC: The patient is alert and oriented x3. No focal deficits were noted. LAB DATA AND TESTS: The chest x-ray 07/03/2020 the evaluation is limited due to suboptimal contrast opacification. No obvious central pulmonary embolism. There is worsening diffuse bilateral airspace disease and left effusion. His troponin is 0.012. His white count was 7,900, hemoglobin 12.8, his platelet count 155,000. His sugar initially was 209, BUN 9, creatinine 0.58. Electrolytes were normal. Liver enzymes were normal. ProBNP was normal. His UA showed specific gravity 1.018 but otherwise normal. He had a second troponin of 0.013. He was negative for COVID, influenza A/B and RSV. His blood gas showed a pH of 7.42 with pCO2 of 48 and pO2 83 on undisclosed amount of oxygen. ASSESSMENT: A patient with previous pneumonia and chronic obstructive pulmonary disease exacerbation with wheezing. His white count is not elevated. He has not been running fever. We will check a procalcitonin level as well. He has been placed on Zosyn and Vancomycin through the emergency room and given 125 mg dose of IV Solu-Medrol. We will consult his pulmonary physician, Dr. Vinay Vazquez, as his lungs do sound bad and his overall history previously with myocardial infarction although the patient does appear to be in heart failure at the present time. He is currently admitted for deep vein thrombosis and pulmonary embolism testing by radiology.
[2020-08-25] MEDS ORDERED: DUONEB 0.5-3 MG/3 ml Neb IH SCH (11:00)
[2020-08-25 11:17] VITALS: PULSE 82; O2SAT 92
[2020-08-25 12:00] VITALS: BP 117/67
[2020-08-25] MEDS ORDERED: Zosyn 3.375 GM Vial 3.375 GM in Sodium Chloride 100ML MINI-BAG PLUS 100 ML IV SCH (12:00)
[2020-08-25] MEDS ORDERED: VENTOLIN COMMON CANISTER IH SCH (12:00)
[2020-08-25] MEDS ORDERED: LIPITOR 40MG PO SCH (22:00)
[2020-08-25] MEDS ORDERED: ZOCOR 20MG PO SCH (22:00)
[2020-08-25] MEDS ORDERED: DESYREL 50 MG PO SCH (22:00)
[2020-08-26] MEDS ORDERED: TROUGH DRUG LEVELS IJ ONE (15:50)
== END 2020-08-25 15:07 | disposition short-term general hospital (02) ==
LOC: ED 18:14 → MED SURG 23:01
PROVIDERS: ADMIT Family Medicine; ATTEND Family Medicine
DX: J44.1 Chronic obstructive pulmonary disease with (acute) exacerbation (principal); I10 Essential (primary) hypertension; E78.00 Pure hypercholesterolemia, unspecified; E11.9 Type 2 diabetes mellitus without complications; G47.30 Sleep apnea, unspecified; M79.89 Other specified soft tissue disorders; Z99.81 Dependence on supplemental oxygen; E78.5 Hyperlipidemia, unspecified; I69.354 Hemiplegia and hemiparesis following cerebral infarction affecting left non-dominant side; Z20.828 Contact with and (suspected) exposure to other viral communicable diseases; Z79.899 Other long term (current) drug therapy; Z79.01 Long term (current) use of anticoagulants; I25.2 Old myocardial infarction
CPT/HCPCS: 0241U; 36000; 36415; 36600; 71045; 71260; 80053; 81001; 82375; 82803; 82947; 83735; 83880; 84145; 84484; 85025; 85027; 87040; 93005; 93041; 93268; 93971; 94002; 94640; 94760; 94762; 96365; 96366; 96367; 96368; 96374; 99285; G0378; J1817; J2930; J3475; J7609; A9270-GY; J3370

== ENCOUNTER 2020-10-21 11:54 | Emergency (ER) | payer MEDICAID ==
--- NOTE | 2020-10-21 12:07 | ERPHSYRPT ---
- History of Present Illness Time Seen by Provider: 10/21/20 12:30 Source: patient Exam Limitations: no limitations Physician History: Patient is a 50-year-old male presents to our ED via EMS for evaluation of shortness of breath. Patient states he has been experiencing shortness of breath for approximately 1 week. Patient states the shortness of breath has gotten worse over the past couple days. Patient had a CT scan on Monday. CT scan revealed worsening of bilateral diffuse airspace disease. Stable cardiomegaly. Old granulomatous disease. Fatty liver. Patient feels his breathing is significantly more labored. Patient has a history of CVA and CABG. 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 Patient denies chest pain. No nausea vomiting or diaphoresis. No diarrhea. No rash. Patient voices no other complaints concerns at this time. Timing/Duration: day(s) (2 days.) Activities at Onset: rest Severity of Dyspnea-Max: moderate Severity of Dyspnea-Current: mild Possible Cause: frequent episodes Modifying Factors: Improves With: activity Associated Symptoms: No chest pain/discomfort, No fever, No calf pain, No leg swelling, No productive cough, No tightness Allergies/Adverse Reactions: No Known Drug Allergies Allergy (Verified 10/21/20 12:19) Home Medications: Metoprolol Tartrate 25 mg PO BID 01/14/13 [History] Aspirin 81 mg PO DAILY 07/13/17 [History] Furosemide 40 mg [Lasix 40 MG] 40 mg PO DAILY 07/13/17 [History] Sertraline HCl 50 mg PO DAILY 07/13/17 [History] Trazodone HCl 50 mg [Desyrel 50 mg] 50 mg PO DAILY 02/16/19 [History] Clopidogrel Bisulfate 75 mg [PLAVIX 75 MG Tablet] 75 mg PO DAILY 07/27/19 [History] Atorvastatin Calcium 80 mg PO HS 09/16/19 [History] lisinopriL [Zestril] 2.5 mg PO DAILY 09/16/19 [History] Albuterol Sulfate [Albuterol Sulfate Hfa] 2 inh PO Q6H 08/24/20 [History] Docusate Sodium [Stool Softener] 100 mg PO BID 10/15/20 [History] Ferrous Sulfate 325 mg PO DAILY 10/15/20 [History] Fluticasone/Umeclidin/Vilanter [Trelegy Ellipta 100-62.5-25] 1 each IH 10/15/20 [History] Hydrocodone/Acetaminophen [Hydrocodone-Acetamin 5-325 mg] 1 tab PO Q8HPRN PRN MDD 4 10/15/20 [History] Insulin Aspart [Novolog] 100 unit SQ 10/15/20 [History] Insulin Glargine,Hum.rec.anlog [Lantus] 30 unit SQ 10/15/20 [History] Levofloxacin [Levaquin] 750 mg PO DAILY 10/15/20 [History] Lorazepam 0.5 mg [Ativan 0.5 MG] 0.5 mg PO BIDPRN PRN 10/15/20 [History] Nitroglycerin 0.4 mg Tablet [Nitrostat 0.4 MG Tablet] 0.4 mg [facility] 10/15/20 [History] Ondansetron [Ondansetron Odt] 4 mg PO Q6HPRN PRN 10/15/20 [History] PANTOPRAZOLE 40 mg Tablet [Protonix 40MG Tablet] 40 mg PO BID 10/15/20 [History] Potassium Chloride 10 Meq Tab* [Klor Con 10 MEQ] 10 meq PO DAILY 10/15/20 [History] Sennosides [Senna Laxative] 8.6 mg PO DAILY PRN PRN 10/15/20 [History] Sodium Chloride [Saline Nasal Rudd] 59 ml NS Q2H/PRN PRN 10/15/20 [History] Spironolactone [Aldactone] 50 mg PO DAILY 10/15/20 [History] Tiotropium [place] Inhaler [Spiriva 18 Mcg/Cap Inhaler] 1 puff IH DAILY 10/15/20 [History] Umeclidinium [place] [Incruse Ellipta] 62.5 mcg IH DAILY 10/15/20 [History] guaiFENesin [Tusnel-Ex] 100 mg PO Q4HPRN PRN 10/15/20 [History] predniSONE [Prednisone] 10 mg PO DAILY 07/01/21 [History] Hx Tetanus, Diphtheria Vaccination/Date Given: Yes Hx Influenza Vaccination/Date Given: Yes Hx Pneumococcal Vaccination/Date Given: Yes Travel Risk - Vaccine Status Have you recieved a Covid-19 vaccination: No - Review of Systems Constitutional: No Symptoms, No Fever, No Chills Eyes: No Symptoms Ears, Nose, & Throat: No Symptoms Respiratory: No Symptoms, No Cough, No Dyspnea Cardiac: No Symptoms, No Chest Pain, No Edema, No Syncope Abdominal/Gastrointestinal: No Symptoms, No Abdominal Pain, No Nausea, No Vomiting, No Diarrhea Genitourinary Symptoms: No Symptoms, No Dysuria Musculoskeletal: No Symptoms, No Back Pain, No Neck Pain Skin: No Symptoms, No Rash Neurological: No Symptoms, No Dizziness, No Focal Weakness, No Sensory Changes Psychological: No Symptoms Endocrine: No Symptoms Hematologic/Lymphatic: No Symptoms Immunological/Allergic: No Symptoms All Other Systems: Reviewed and Negative - Past Medical History Pertinent Past Medical History: Yes Neurological History: Stroke, TIA ENT History: Other Cardiac History: Congestive Heart Failure, High Cholesterol, Hypertension, Myocardial Infarction (IA) Respiratory History: COPD, Pneumonia, Sleep Apnea Endocrine Medical History: No Pertinent History Musculoskeletal History: Fractures, Osteoarthritis GI Medical History: Diverticulitis, Diverticulosis History: No Pertinent History Psycho-Social History: Anxiety, Depression Male Reproductive Disorders: No Pertinent History Other Medical History: CABG x 4, [place] x 3, 2 vertabra fx, leiomyosarcoma, tinnitus, covid in november - Past Surgical History Past Surgical History: Yes Neuro Surgical History: No Pertinent History Cardiac: CABG, Cardiac Catheterization Respiratory: No Pertinent History Gastrointestinal: No Pertinent History Genitourinary: No Pertinent History Musculoskeletal: Other Male Surgical History: No Pertinent History Other Surgical History: CABG X 4, 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, kyphoplasty L1-L2 - Social History Smoking Status: Never smoker How long have you smoked: years Exposure to second hand smoke: No Alcohol Use: Socially Drug Use: none Patient Lives Alone: No Significant Family History: heart disease, hypertension - Nursing Vital Signs Nursing Vital Signs: Initial Vital Signs O2 Sat by Pulse Oximetry 94 L 10/21/20 11:59 Pain Scale Pain Intensity 6 - Physical Exam General Appearance: moderate distress, alert Eye Exam: PERRL/EOMI, eyes nml inspection Ears, Nose, Throat Exam: hearing grossly normal, normal ENT inspection, normal pharynx, abnormal TM (R), abnormal TM (L), No sinus pain/drainage Neck Exam: normal inspection, supple Respiratory Exam: normal breath sounds, respiratory distress, diminished breath sounds Cardiovascular/Chest Exam: normal heart sounds, regular rate/rhythm Abdominal/Gastrointestinal Exam: soft, No tenderness, No distention, No mass Extremity Exam: non-tender, normal range of motion, normal inspection, no calf tenderness, no pedal edema Neurologic Exam: alert, oriented x 3, cooperative, exploration manager II-XII nml as tested, sensation nml, No motor deficits Skin Exam: normal color, warm, No dry SpO2 Interpretation: normal SpO2: 99 O2 Delivery: Non-rebreather - Course Nursing assessment & vital signs reviewed: Yes EKG Interpreted by Me: RATE (101), Sinus Tach, NORMAL AXIS, NORMAL INTERVALS - Radiology Exams Chest X-ray Interpretation: Teleradiologist Report (Diffuse bilateral airspace disease moderately improved right lung and minimally improved left lung. Heart remains enlarged with CABG. No new cardiopulmonary abnormalities.) Ordered Tests: Active Orders 24 hr Category Date Time Status [place] Operator STAT Care 10/21/20 12:08 Active EKG-ER Only STAT Care 10/21/20 12:08 Active IV Insertion STAT Care 10/21/20 12:08 Active Pulse Oximetry (ED) STAT Care 10/21/20 12:08 Active CHEST 1 VIEW (PORTABLE) Stat Exams 10/21/20 12:08 Completed CHEST WITH CONTRAST [CT] Stat Exams 10/21/20 14:17 Completed BLOOD CULTURE Stat Lab 10/21/20 12:40 Received CBC W DIFF Stat Lab 10/21/20 12:08 Completed CMP Stat Lab 10/21/20 12:08 Completed D-DIMER QUANTITATIVE Stat Lab 10/21/20 12:08 Completed INFLUENZA A+B HANH Stat Lab 10/21/20 13:24 Completed MAGNESIUM Stat Lab 10/21/20 12:08 Completed NT PRO BNP Stat Lab 10/21/20 12:08 Completed TROPONIN Q3H Lab 10/21/20 12:15 Completed TROPONIN Q3H Lab 10/21/20 15:56 Completed TROPONIN Q3H Lab 10/21/20 19:33 Completed TROPONIN Q3H Lab 10/21/20 21:15 Ordered TROPONIN Q3H Lab 10/22/20 00:15 Ordered UA W/RFX UR CULTURE Stat Lab 10/21/20 15:11 Completed BiPap/CPAP STAT RT 10/21/20 12:08 Active Medication Summary Generic Name Dose Route Start Last Admin Trade Name Celina PRN Reason Stop Dose Admin Magnesium Sulfate/Dextrose 100 mls @ 100 mls/hr 10/21/20 17:15 10/21/20 17:21 Magnesium 1 Gm / 100 Ml D5w IV 10/21/20 19:14 100 mls/hr Q1H USHA Administration Heparin Sodium/Dextrose 25,000 units in 250 mls @ 10 mls/hr 10/21/20 18:00 10/21/20 17:44 Heparin 25,000 Units/D5w 250ml Premix IV 11/20/20 17:59 10 ml/hr .Q24H USHA 10 mls/hr Administration Discontinued Medications Generic Name Dose Route Start Last Admin Trade Name Celina PRN Reason Stop Dose Admin Albuterol/Ipratropium 3 ml 10/21/20 12:08 10/21/20 12:45 Duoneb 0.5-3 Mg/3 Ml Neb IH 10/21/20 12:09 3 ml STAT ONE Administration Albuterol/Ipratropium Confirm 10/21/20 12:34 Duoneb 0.5-3 Mg/3 Ml Neb Administered 10/21/20 12:35 Dose 3 ml IH .STK-MED ONE Heparin Sodium (Beef Lung) 5,000 unit 10/21/20 17:37 10/21/20 17:43 Heparin 5000 Units/0.5 Ml (High Risk Med) IV 10/21/20 17:38 5,000 unit STAT ONE Administration Heparin Sodium (Beef Lung) Confirm 10/21/20 17:42 Heparin 5000 Units/0.5 Ml (High Risk Med) Administered 10/21/20 17:43 Dose 5,000 unit .ROUTE .STK-MED ONE Piperacillin Sod/Tazobactam 100 mls @ 200 mls/hr 10/21/20 12:55 10/21/20 13:07 Sod 3.375 gm/ Sodium Chloride IV 10/21/20 13:24 200 mls/hr STAT ONE Administration Vancomycin HCl 1 gm in 200 mls @ 125 mls/hr 10/21/20 12:56 10/21/20 16:03 Vancomycin 1 Gram/200 Ml Bag IV 10/21/20 14:31 Infused STAT ONE Infusion Sodium Chloride Confirm 10/21/20 13:02 Sodium Chloride 100ml Mini-Bag Plus Administered 10/21/20 13:03 Dose 100 mls @ ud IV .STK-MED ONE Vancomycin HCl Confirm 10/21/20 14:14 Vancomycin 1 Gram/200 Ml Bag Administered 10/21/20 14:15 Dose 1 gm in 200 mls @ ud IV .STK-MED ONE Methylprednisolone Sodium Succinate 125 mg 10/21/20 12:08 10/21/20 12:25 Solu-Medrol 125 Mg IV 10/21/20 12:09 125 mg STAT ONE Administration Methylprednisolone Sodium Succinate Confirm 10/21/20 12:22 Solu-Medrol 125 Mg Administered 10/21/20 12:23 Dose 125 mg .ROUTE .STK-MED ONE Piperacillin Sod/Tazobactam Sod Confirm 10/21/20 13:02 Zosyn 3.375 Gm Vial Administered 10/21/20 13:03 Dose 3.375 gm IV .STK-MED ONE Potassium Chloride 40 meq 10/21/20 14:16 10/21/20 14:25 Klor Con 10 Meq PO 10/21/20 14:17 40 meq STAT ONE Administration Potassium Chloride Confirm 10/21/20 14:24 Klor Con 10 Meq Administered 10/21/20 14:25 Dose 40 meq PO .STK-MED ONE Lab/Rad Data: Laboratory Result Diagrams 10/21/20 12:08 10/21/20 12:08 Laboratory Results 10/21/20 10/21/20 10/21/20 Range/Units 19:33 15:56 15:11 WBC (4.0-10.5) K/mm3 RBC (4.1-5.6) M/mm3 Hgb (12.5-18.0) gm/dl Hct (42-50) % MCV (78-100) fl MCH (26-32) pg MCHC (32-36) g/dl RDW (11.5-14.0) % Plt Count (150-450) K/mm3 MPV (7.5-11.0) fl Gran % (36.0-66.0) % Eos # (Auto) (0-0.5) Absolute Lymphs (auto) (1.0-4.6) Absolute Monos (auto) (0.0-1.3) Lymphocytes % (24.0-44.0) % Monocytes % (0.0-12.0) % Eosinophils % (0.00-5.0) % Basophils % (0.0-0.4) % Absolute Granulocytes (1.4-6.9) Basophils # (0-0.4) D-Dimer (215-500) ng/mL Sodium (137-145) mmol/L Potassium (3.5-5.1) mmol/L Chloride (98-107) mmol/L Carbon Dioxide (22-30) mmol/L Anion Gap (5-15) MEQ/L BUN (9-20) mg/dL Creatinine (0.66-1.25) mg/dL Estimated GFR ML/MIN Glucose (74-106) mg/dL Calcium (8.4-10.2) mg/dL Magnesium (1.6-2.3) mg/dL Total Bilirubin (0.2-1.3) mg/dL AST (17-59) U/L ALT (0-50) U/L Alkaline Phosphatase (38-126) U/L Troponin I 0.057 H* 0.060 H* (0.000-0.034) ng/mL NT-Pro-B Natriuret Pep (0-900) pg/mL Serum Total Protein (6.3-8.2) g/dL Albumin (3.5-5.0) g/dL Urine Color YELLOW (YELLOW) Urine Appearance CLEAR (CLEAR) Urine pH 5.0 (5-6) Ur Specific [place] 1.012 (1.005-1.025) Urine Protein NEGATIVE (Negative) Urine Ketones NEGATIVE (NEGATIVE) Urine Blood NEGATIVE (0-5) Ángel/ul Urine Nitrite NEGATIVE (NEGATIVE) Urine Bilirubin NEGATIVE (NEGATIVE) Urine Urobilinogen NEGATIVE (0-1) mg/dL Ur Leukocyte Esterase NEGATIVE (NEGATIVE) Urine WBC (Auto) 3-5 (0-5) /HPF Urine RBC (Auto) NONE (0-2) /HPF U Epithel Cells (Auto) NONE (FEW) /HPF Urine Mucus (Auto) SLIGHT (NEGATIVE) /HPF Urine Culture Reflexed NO (NO) Urine Glucose NEGATIVE (NEGATIVE) mg/dL Influenza Type A Ag (NEGATIVE) Influenza Type B Ag (NEGATIVE) 07/07/21 07/07/21 07/07/21 Range/Units 13:24 12:15 12:08 WBC (4.0-10.5) K/mm3 RBC (4.1-5.6) M/mm3 Hgb (12.5-18.0) gm/dl Hct (42-50) % MCV (78-100) fl MCH (26-32) pg MCHC (32-36) g/dl RDW (11.5-14.0) % Plt Count (150-450) K/mm3 MPV (7.5-11.0) fl Gran % (36.0-66.0) % Eos # (Auto) (0-0.5) Absolute Lymphs (auto) (1.0-4.6) Absolute Monos (auto) (0.0-1.3) Lymphocytes % (24.0-44.0) % Monocytes % (0.0-12.0) % Eosinophils % (0.00-5.0) % Basophils % (0.0-0.4) % Absolute Granulocytes (1.4-6.9) Basophils # (0-0.4) D-Dimer 1409 H* (215-500) ng/mL Sodium (137-145) mmol/L Potassium (3.5-5.1) mmol/L Chloride (98-107) mmol/L Carbon Dioxide (22-30) mmol/L Anion Gap (5-15) MEQ/L BUN (9-20) mg/dL Creatinine (0.66-1.25) mg/dL Estimated GFR ML/MIN Glucose (74-106) mg/dL Calcium (8.4-10.2) mg/dL Magnesium (1.6-2.3) mg/dL Total Bilirubin (0.2-1.3) mg/dL AST (17-59) U/L ALT (0-50) U/L Alkaline Phosphatase (38-126) U/L Troponin I 0.058 H* (0.000-0.034) ng/mL NT-Pro-B Natriuret Pep (0-900) pg/mL Serum Total Protein (6.3-8.2) g/dL Albumin (3.5-5.0) g/dL Urine Color (YELLOW) Urine Appearance (CLEAR) Urine pH (5-6) Ur Specific [place] (1.005-1.025) Urine Protein (Negative) Urine Ketones (NEGATIVE) Urine Blood (0-5) Ángel/ul Urine Nitrite (NEGATIVE) Urine Bilirubin (NEGATIVE) Urine Urobilinogen (0-1) mg/dL Ur Leukocyte Esterase (NEGATIVE) Urine WBC (Auto) (0-5) /HPF Urine RBC (Auto) (0-2) /HPF U Epithel Cells (Auto) (FEW) /HPF Urine Mucus (Auto) (NEGATIVE) /HPF Urine Culture Reflexed (NO) Urine Glucose (NEGATIVE) mg/dL Influenza Type A Ag NEGATIVE (NEGATIVE) Influenza Type B Ag NEGATIVE (NEGATIVE) 10/21/20 10/21/20 Range/Units 12:08 12:08 WBC 7.8 (4.0-10.5) K/mm3 RBC 4.07 L (4.1-5.6) M/mm3 Hgb 11.7 L (12.5-18.0) gm/dl Hct 36.9 L (42-50) % MCV 90.7 (78-100) fl MCH 28.7 (26-32) pg MCHC 31.7 L (32-36) g/dl RDW 16.9 H (11.5-14.0) % Plt Count 197 (150-450) K/mm3 MPV 10.4 (7.5-11.0) fl Gran % 74.5 H (36.0-66.0) % Eos # (Auto) 0.22 (0-0.5) Absolute Lymphs (auto) 1.03 (1.0-4.6) Absolute Monos (auto) 0.71 (0.0-1.3) Lymphocytes % 13.2 L (24.0-44.0) % Monocytes % 9.1 (0.0-12.0) % Eosinophils % 2.8 (0.00-5.0) % Basophils % 0.4 (0.0-0.4) % Absolute Granulocytes 5.79 (1.4-6.9) Basophils # 0.03 (0-0.4) D-Dimer (215-500) ng/mL Sodium 136 L (137-145) mmol/L Potassium 3.2 L (3.5-5.1) mmol/L Chloride 98 (98-107) mmol/L Carbon Dioxide 25 (22-30) mmol/L Anion Gap 15.1 H (5-15) MEQ/L BUN 10 (9-20) mg/dL Creatinine 0.97 (0.66-1.25) mg/dL Estimated GFR > 60.0 ML/MIN Glucose 134 H (74-106) mg/dL Calcium 8.4 (8.4-10.2) mg/dL Magnesium 0.9 L* (1.6-2.3) mg/dL Total Bilirubin 0.90 (0.2-1.3) mg/dL AST 25 (17-59) U/L ALT 23 (0-50) U/L Alkaline Phosphatase 68 (38-126) U/L Troponin I (0.000-0.034) ng/mL NT-Pro-B Natriuret Pep 478 (0-900) pg/mL Serum Total Protein 6.0 L (6.3-8.2) g/dL Albumin 3.5 (3.5-5.0) g/dL Urine Color (YELLOW) Urine Appearance (CLEAR) Urine pH (5-6) Ur Specific [place] (1.005-1.025) Urine Protein (Negative) Urine Ketones (NEGATIVE) Urine Blood (0-5) Ángel/ul Urine Nitrite (NEGATIVE) Urine Bilirubin (NEGATIVE) Urine Urobilinogen (0-1) mg/dL Ur Leukocyte Esterase (NEGATIVE) Urine WBC (Auto) (0-5) /HPF Urine RBC (Auto) (0-2) /HPF U Epithel Cells (Auto) (FEW) /HPF Urine Mucus (Auto) (NEGATIVE) /HPF Urine Culture Reflexed (NO) Urine Glucose (NEGATIVE) mg/dL Influenza Type A Ag (NEGATIVE) Influenza Type B Ag (NEGATIVE) - Progress Progress: improved Air Movement: good Progress Note: Hypokalemia potassium replaced. Hypomagnesemia magnesium replaced. D-dimer elevated. CTA chest positive for PE. Troponin marginally elevated at 0.060. 10/21/20 17:12 10/21/20 17:13 10/21/20 17:[address] Durán of [facility] who accepts transfer. Plan of care discussed with patient. He agrees to transfer to [facility] for further evaluation and treatment. 10/21/20 21:40 Blood Culture(s) Obtained: Yes Antibiotics given: Yes Counseled pt/family regarding: lab results, diagnosis, rad results - Departure Departure Disposition: Observation Clinical Impression: Pneumonia, Cardiomegaly, Respiratory distress, Hypoxia, Elevated troponin, Elevated d-dimer, Hypokalemia, Hypomagnesemia, Pulmonary embolus Condition: Stable Critical Care Time: No Referrals: JOSEPHINE HUMPHRIES [Primary Care Provider] -
[2020-10-21] MEDS ORDERED: solu-MEDROL IV ONE (12:08)
[2020-10-21] MEDS ORDERED: DUONEB 0.5-3 MG/3 ml Neb IH ONE ×2 (12:08→12:34)
[2020-10-21] MEDS ORDERED: solu-MEDROL ONE (12:22)
--- NOTE | 2020-10-21 12:41 | XRAY ---
Indication: Short of breath. Comparison: August 24, 2020. Portable chest again demonstrates diffuse bilateral airspace disease moderately improved right lung and minimally improved left lung. Heart remains enlarged again with CABG. No new cardiopulmonary abnormalities.
[2020-10-21] MEDS ORDERED: Zosyn 3.375 GM Vial 3.375 GM in Sodium Chloride 100ML MINI-BAG PLUS 100 ML IV ONE (12:55)
[2020-10-21] MEDS ORDERED: VANCOMYCIN 1 GRAM/200 ML BAG 1 GM/200 ML PIGGYBACK IV ONE ×2 (12:56→14:14)
[2020-10-21] MEDS ORDERED: Sodium Chloride 100ML MINI-BAG PLUS 100 ML IV ONE (13:02)
[2020-10-21] MEDS ORDERED: Zosyn 3.375 GM Vial IV ONE (13:02)
[2020-10-21 13:03] LABS: Absolute Neutrophil Ct (ANC) 5.79 (1.4-6.9); BASOPHIL % 0.4 % (0.0-0.4); Basophil (Absolute #) 0.03 (0-0.4); Eosinophil % 2.8 % (0.00-5.0); Eosinophil (Absolute #) 0.22 (0-0.5); Hematocrit 36.9 % (42-50); Hemoglobin 11.7 gm/dl (12.5-18.0); Lymphocyte (Absolute #) 1.03 (1.0-4.6); Lymphocytes % 13.2 % (24.0-44.0); Mean Cell Volume 90.7 fl (78-100); Mean Corpuscular Hemoglobin 28.7 pg (26-32); Mean Corpuscular Hgb Concent. 31.7 g/dl (32-36); Mean Platelet Volume 10.4 fl (7.5-11.0); Monocyte (Absolute #) 0.71 (0.0-1.3); Monocytes % 9.1 % (0.0-12.0); Neutrophil % 74.5 % (36.0-66.0); Platelet Count 197 K/mm3 (150-450); Red Blood Count 4.07 M/mm3 (4.1-5.6); Red Cell Distribution Width 16.9 % (11.5-14.0); White Blood Count 7.8 K/mm3 (4.0-10.5)
[2020-10-21 13:26] LABS: ALBUMIN 3.5 g/dL (3.5-5.0); ALKALINE PHOSPHATASE 68 U/L (38-126); ANION GAP 15.1 MEQ/L (5-15); BLOOD UREA NITROGEN 10 mg/dL (9-20); CHLORIDE 98 mmol/L (98-107); Calcium 8.4 mg/dL (8.4-10.2); Carbon Dioxide 25 mmol/L (22-30); Creatinine 1 0.97 mg/dL (0.66-1.25); EST GLOMERULAR FILTRATION RATE > 60.0 ML/MIN; Glucose 134 mg/dL (74-106); NT PRO BNP 478 pg/mL (0-900); Potassium 3.2 mmol/L (3.5-5.1); SGOT/AST 25 U/L (17-59); SGPT/ALT 23 U/L (0-50); SODIUM 136 mmol/L (137-145)
[2020-10-21 13:29] LABS: MAGNESIUM 0.9 mg/dL (1.6-2.3)
[2020-10-21 13:33] LABS: INFLUENZA A NEGATIVE (NEGATIVE); INFLUENZA B NEGATIVE (NEGATIVE)
[2020-10-21] MEDS ORDERED: Klor Con 10 MEQ PO ONE ×2 (14:16→14:24)
--- NOTE | 2020-10-21 15:19 | XRAY ---
Indication: Short of breath and weakness. Elevated d-dimer. Multiple contiguous axial images obtained through the chest using 80 cc Isovue 370 contrast and PE protocol. Comparison: October 16, 2020. There is good opacification of the pulmonary arteries to include the lobar and segmental branches. However mild respiration artifact limits evaluation the more distal lobar and segmental branches. Nonoccluding pulmonary embolus medial segment of right lower lobe. No other pulmonary embolus. Heart remains enlarged again with CABG surgery and prominent epicardiac fat. Aorta remains normal in course and caliber. Stable tiny right hilar calcified node. No pathologic mediastinal/hilar lymphadenopathy. There remains diffuse bilateral airspace disease moderately improved in the right lung and minimally improved left lung. Stable tiny left effusion. Left apex remains clear. No consolidation or pneumothorax. Bony thorax intact again with flowing osteophytes throughout the spine and sternotomy wires. Limited upper abdomen again demonstrates fatty liver and splenic calcified granulomas. Impression: 1. Respiration artifact limits evaluation for pulmonary embolus. Nonoccluding right lower lobe segmental pulmonary embolus. 2. Again diffuse bilateral airspace disease overall improved as detailed above. 3. Stable tiny left effusion, cardiomegaly, fatty liver, and old granulomatous disease.
[2020-10-21 15:27] LABS: Appearance CLEAR (CLEAR); Bilirubin NEGATIVE (NEGATIVE); Blood NEGATIVE Ery/ul (0-5); Glucose NEGATIVE (NEGATIVE); Ketones NEGATIVE (NEGATIVE); Leukocyte Esterase NEGATIVE (NEGATIVE); Mucus SLIGHT /HPF (NEGATIVE); Nitrite NEGATIVE (NEGATIVE); Protein,Urine Dip NEGATIVE (Negative); Specific Gravity 1.012 (1.005-1.025); Urobilinogen NEGATIVE mg/dL (0-1)
[2020-10-21] MEDS ORDERED: Magnesium 1 Gm / 100 Ml D5W*** 200 ML IV ONE (17:18)
[2020-10-21] MEDS: Magnesium 1 Gm / 100 Ml D5W*** 100 ML IV SCH (17:21)
[2020-10-21] MEDS ORDERED: Heparin 5000 UNITS/0.5 ML (HIGH RISK MED) IV ONE (17:37)
[2020-10-21] MEDS ORDERED: Heparin 25,000 units/D5W 250ML PREMIX 25,000 UNITS/250 ML BAG IV ONE (17:42)
[2020-10-21] MEDS ORDERED: Heparin 5000 UNITS/0.5 ML (HIGH RISK MED) ONE (17:42)
[2020-10-21] MEDS ORDERED: Heparin 25,000 units/D5W 250ML PREMIX 25,000 UNITS/250 ML BAG IV SCH (18:00)
[2020-10-21 19:17] VITALS: BP 119/78; PULSE 89
[2020-10-21 21:40] VITALS: O2SAT 99
[2020-10-22] MEDS: Magnesium 1 Gm / 100 Ml D5W*** 100 ML IV SCH (10:01)
== END 2020-10-21 20:11 | disposition short-term general hospital (02) ==
LOC: ED 11:54
DX: J18.9 Pneumonia, unspecified organism (principal); I51.7 Cardiomegaly; R06.03 Acute respiratory distress; R09.02 Hypoxemia; R77.8 Other specified abnormalities of plasma proteins; R79.1 Abnormal coagulation profile; E87.6 Hypokalemia; E83.42 Hypomagnesemia; I26.99 Other pulmonary embolism without acute cor pulmonale; E78.00 Pure hypercholesterolemia, unspecified; I10 Essential (primary) hypertension; I25.2 Old myocardial infarction; Z79.899 Other long term (current) drug therapy; Z79.84 Long term (current) use of oral hypoglycemic drugs; Z79.891 Long term (current) use of opiate analgesic; Z79.4 Long term (current) use of insulin
CPT/HCPCS: 36000; 36415; 71045; 71260; 80053; 81001; 83735; 83880; 84484; 85025; 85379; 87040; 87400; 93005; 93041; 94002; 94640; 94760; 96365; 96367; 96374; 96375; 99285; J1644; J2930; J3475; A9270-GY; J3370

== ENCOUNTER 2020-11-30 20:26 | Inpatient (IN) | payer MEDICAID ==
[2020-11-30] MEDS ORDERED: Sodium Chloride 0.9% 1000 ML 1,000 ML IV STA (20:45)
[2020-11-30 21:20] LABS: BASOPHIL % 0.2 % (0.0-0.4); Basophil (Absolute #) 0.02 (0-0.4); Eosinophil (Absolute #) 0.45 (0-0.5); Hematocrit 35.7 % (42-50); Hemoglobin 11.3 gm/dl (12.5-18.0); Lymphocyte (Absolute #) 1.75 (1.0-4.6); Lymphocytes % 19.4 % (24.0-44.0); Mean Cell Volume 88.1 fl (78-100); Mean Corpuscular Hemoglobin 27.9 pg (26-32); Mean Corpuscular Hgb Concent. 31.7 g/dl (32-36); Mean Platelet Volume 10.2 fl (7.5-11.0); Monocyte (Absolute #) 0.78 (0.0-1.3); Monocytes % 8.7 % (0.0-12.0); Neutrophil % 66.7 % (36.0-66.0); Platelet Count 266 K/mm3 (150-450); Red Blood Count 4.05 M/mm3 (4.1-5.6); Red Cell Distribution Width 16.1 % (11.5-14.0)
[2020-11-30 21:32] LABS: ALBUMIN 3.8 g/dL (3.5-5.0); ALKALINE PHOSPHATASE 65 U/L (38-126); ANION GAP 10.8 MEQ/L (5-15); BLOOD UREA NITROGEN 11 mg/dL (9-20); CHLORIDE 97 mmol/L (98-107); Calcium 9.2 mg/dL (8.4-10.2); Carbon Dioxide 31 mmol/L (22-30); EST GLOMERULAR FILTRATION RATE > 60.0 ML/MIN; Glucose 126 mg/dL (74-106); Potassium 3.6 mmol/L (3.5-5.1); SGOT/AST 21 U/L (17-59); SGPT/ALT 27 U/L (0-50); SODIUM 135 mmol/L (137-145); Total Protein 6.6 g/dL (6.3-8.2)
[2020-11-30] MEDS ORDERED: Sodium Chloride 0.9% 1000 ML 1,000 ML ONE (21:48)
--- NOTE | 2020-11-30 22:02 | ERPHSYRPT ---
- History of Present Illness Time Seen by Provider: 11/30/20 20:45 Source: patient Exam Limitations: no limitations Patient Subjective Stated Complaint: pt has been coughing up blood clots today and having nose bleeds. had a coughing spell tonight with shortness of breath during coughing. Triage Nursing Assessment: pt alert and oriented, answers questions approp. pt arrive per ambulance and transfers to [facility] with assist of 4. pt short of b reath with exertionlung sounds coarse in bases. 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 Physician History: Patient is a 50-year-old male presents to our ED via EMS for evaluation of hemoptysis. Patient has been coughing up blood for the past 2 days. Symptoms have been constant. Patient is on Plavix. Hemoptysis has been associated with shortness of breath. No nausea or vomiting. No hematemesis. No diarrhea. No hematochezia. Patient has a history of a CVA affecting his left upper and lower extremity. Symptoms are moderate in intensity. No specific worsening improving factors. Patient voiced no other complaints or concerns at this time. Timing/Duration: yesterday Severity: moderate Modifying Factors: Improves With: nothing Associated Symptoms: shortness of breath, cough, No vomiting, No abdominal pain, No diaphoresis, No chest pain, No loss of appetite, No syncope, No seizure Allergies/Adverse Reactions: No Known Drug Allergies Allergy (Verified 11/30/20 21:04) Home Medications: Metoprolol Tartrate 25 mg PO BID 01/14/13 [History] Aspirin 81 mg PO DAILY 07/13/17 [History] Furosemide 40 mg [Lasix 40 MG] 40 mg PO DAILY 07/13/17 [History] Sertraline HCl 50 mg PO DAILY 07/13/17 [History] Trazodone HCl 50 mg [Desyrel 50 mg] 50 mg PO DAILY 02/16/19 [History] Clopidogrel Bisulfate 75 mg [PLAVIX 75 MG Tablet] 75 mg PO DAILY 07/27/19 [History] Atorvastatin Calcium 80 mg PO HS 09/16/19 [History] lisinopriL [Zestril] 2.5 mg PO DAILY 09/16/19 [History] Albuterol Sulfate [Albuterol Sulfate Hfa] 2 inh PO Q6H 08/24/20 [History] Docusate Sodium [Stool Softener] 100 mg PO BID 10/15/20 [History] Ferrous Sulfate 325 mg PO DAILY 10/15/20 [History] Fluticasone/Umeclidin/Vilanter [Trelegy Ellipta 100-62.5-25] 1 each IH HS 10/15/20 [History] Hydrocodone/Acetaminophen [Hydrocodone-Acetamin 5-325 mg] 1 tab PO Q8HPRN PRN MDD 4 10/15/20 [History] Insulin Aspart [Novolog] 100 unit SQ 10/15/20 [History] Insulin Glargine,Hum.rec.anlog [Lantus] 30 unit SQ 10/15/20 [History] Levofloxacin [Levaquin] 750 mg PO DAILY 10/15/20 [History] Lorazepam 0.5 mg [Ativan 0.5 MG] 0.5 mg PO BIDPRN PRN 10/15/20 [History] Nitroglycerin 0.4 mg Tablet [Nitrostat 0.4 MG Tablet] 0.4 mg SL 10/15/20 [History] Ondansetron [Ondansetron Odt] 4 mg PO Q6HPRN PRN 10/15/20 [History] PANTOPRAZOLE 40 mg Tablet [Protonix 40MG Tablet] 40 mg PO BID 10/15/20 [History] Potassium Chloride 10 Meq Tab* [Klor Con 10 MEQ] 10 meq PO DAILY 10/15/20 [History] Sennosides [Senna Laxative] 8.6 mg PO DAILY PRN PRN 10/15/20 [History] Sodium Chloride [Saline Nasal [place]] 59 ml NS Q2H/PRN PRN 10/15/20 [History] Spironolactone [Aldactone] 50 mg PO DAILY 10/15/20 [History] Tiotropium Strang Inhaler [Spiriva 18 Mcg/Cap Inhaler] 1 puff IH DAILY 10/15/20 [History] Umeclidinium Strang [Incruse Ellipta] 62.5 mcg IH DAILY 10/15/20 [History] guaiFENesin [Tusnel-Ex] 100 mg PO Q4HPRN PRN 10/15/20 [History] predniSONE [Prednisone] 10 mg PO DAILY 10/15/20 [History] Hx Tetanus, Diphtheria Vaccination/Date Given: Yes Hx Influenza Vaccination/Date Given: Yes Hx Pneumococcal Vaccination/Date Given: Yes Immunizations Up to Date: Yes Travel Risk - International Travel Have you traveled outside of the country in past 3 weeks: No - Coronavirus Screening Are you exhibiting any of the following symptoms?: Yes Symptoms: Shortness of Breath - Vaccine Status Have you recieved a Covid-19 vaccination: No - Review of Systems Constitutional: No Symptoms, No Fever, No Chills Eyes: No Symptoms Ears, Nose, & Throat: No Symptoms Respiratory: No Symptoms, No Cough, No Dyspnea Cardiac: No Symptoms, No Chest Pain, No Edema, No Syncope Abdominal/Gastrointestinal: No Symptoms, No Abdominal Pain, No Nausea, No Vomiting, No Diarrhea Genitourinary Symptoms: No Symptoms, No Dysuria Musculoskeletal: No Symptoms, No Back Pain, No Neck Pain Skin: No Symptoms, No Rash Neurological: No Symptoms, No Dizziness, No Focal Weakness, No Sensory Changes Psychological: No Symptoms Endocrine: No Symptoms Hematologic/Lymphatic: No Symptoms Immunological/Allergic: No Symptoms All Other Systems: Reviewed and Negative - Past Medical History Pertinent Past Medical History: Yes Neurological History: Stroke, TIA ENT History: Other Cardiac History: Congestive Heart Failure, High Cholesterol, Hypertension, Myocardial Infarction ([place]) Respiratory History: COPD, Pneumonia, Sleep Apnea Endocrine Medical History: No Pertinent History Musculoskeletal History: Fractures, Osteoarthritis GI Medical History: Diverticulitis, Diverticulosis History: No Pertinent History Psycho-Social History: Anxiety, Depression Male Reproductive Disorders: No Pertinent History Other Medical History: CABG x 4, [place] x 3, 2 vertabra fx, leiomyosarcoma, tinnitus, covid in november - Past Surgical History Past Surgical History: Yes Neuro Surgical History: No Pertinent History Cardiac: CABG, Cardiac Catheterization Respiratory: No Pertinent History Gastrointestinal: No Pertinent History Genitourinary: No Pertinent History Musculoskeletal: Other Male Surgical History: No Pertinent History Other Surgical History: CABG X 4, 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, kyphoplasty L1-L2 - Social History Smoking Status: Former smoker How long have you smoked: years Exposure to second hand smoke: No Alcohol Use: Socially Drug Use: none Patient Lives Alone: No ([facility]) Significant Family History: heart disease, hypertension - Nursing Vital Signs Nursing Vital Signs: Initial Vital Signs Temperature 97.8 F 11/30/20 20:31 Pulse Rate 82 11/30/20 20:31 Respiratory Rate 22 11/30/20 20:31 Blood Pressure 96/59 11/30/20 20:31 O2 Sat by Pulse Oximetry 99 11/30/20 20:31 Pain Scale Pain Intensity 0 - Physical Exam General Appearance: no apparent distress, alert, other (Patient appears pale.) Eye Exam: PERRL/EOMI, eyes nml inspection Ears, Nose, Throat Exam: normal ENT inspection, TMs normal, pharynx normal, moist mucous membranes Neck Exam: normal inspection, non-tender, supple, full range of motion Respiratory Exam: normal breath sounds, lungs clear, No respiratory distress Cardiovascular Exam: regular rate/rhythm, normal heart sounds, normal peripheral pulses Gastrointestinal/Abdomen Exam: soft, normal bowel sounds, No tenderness, No mass Back Exam: normal inspection, normal range of motion, No CVA tenderness, No vertebral tenderness Extremity Exam: normal inspection, normal range of motion, pelvis stable Neurologic Exam: alert, oriented x 3, cooperative, normal mood/affect, sensation nml, other (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.), No motor deficits Skin Exam: normal color, warm, dry, No rash Lymphatic Exam: No adenopathy SpO2 Interpretation: normal SpO2: 98 O2 Delivery: Room Air Procedures - Intubation Time of Intubation: 03:43 Intubation Indications: respiratory distress Tube Size (cm): 7.5 Medications: Fentanyl, Propofol (Diprivan), Etomidate, Succinylcholine C-Spine: maintained Endotracheal Tube Confirmation: bilateral breath sounds, positive end tidal CO2, good rise & fall of chest Intubation Complications: no complications Performed By: ED Physician Post Intubation Xray: Yes Progress/X-ray Impression: Chest x-ray shows ET tube down near the enoc. ET tube pulled back 2 cm. 12/01/20 04:25 - Course Nursing assessment & vital signs reviewed: Yes - CT Exams Chest CT Interpretation: Tele-radiologist Report (Right lower lobe bronchiectasis with extensive groundglass disease throughout the right lung. Extensive left lower lobe groundglass disease. Large right hilar lymph nodes. 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.) Ordered Tests: Active Orders 24 hr Category Date Time Status Lean Engineer STAT Care 11/30/20 20:46 Active EKG-ER Only STAT Care 11/30/20 20:45 Active Basilio [Catheter-Hasty Basilio] STAT Care 12/01/20 06:02 Active IV Insertion STAT Care 11/30/20 20:45 Active Pulse Oximetry (ED) STAT Care 11/30/20 20:45 Active CHEST 1 VIEW (PORTABLE) Stat Exams 12/01/20 03:42 Taken CHEST 1 VIEW (PORTABLE) Stat Exams 12/01/20 06:28 Taken CHEST WITH CONTRAST [CT] Stat Exams 11/30/20 20:47 Taken ABG [ARTERIAL BLOOD GASES] Stat Lab 12/01/20 06:14 Completed ARTERIAL BLOOD GASES Stat Lab 12/01/20 04:20 Completed BLOOD CULTURE Stat Lab 12/01/20 05:56 Ordered CBC W DIFF Stat Lab 11/30/20 21:10 Completed CMP Stat Lab 11/30/20 21:10 Completed POCT GLUCOSE Stat Lab 12/01/20 05:47 Completed TROPONIN Q3H Lab 11/30/20 21:10 Completed TROPONIN Q3H Lab 11/30/20 23:45 Completed TROPONIN Q3H Lab 12/01/20 04:40 Completed TROPONIN Q3H Lab 12/01/20 05:45 Ordered TROPONIN Q3H Lab 12/01/20 08:45 Ordered UA W/RFX UR CULTURE Stat Lab 12/01/20 04:41 Completed BiPap/CPAP STAT RT 12/01/20 05:48 Active Respiratory Therapy Assessment DAILY RT 12/01/20 06:59 Active Standby STAT RT 12/01/20 05:48 Active Vent Settings [Ventilator Management] STAT RT 12/01/20 05:48 Active Medication Summary Generic Name Dose Route Start Last Admin Trade Name Freq PRN Reason Stop Dose Admin Cisatracurium Besylate 200 mg/ 200 mls @ 0 mls/hr 12/01/20 05:15 Dextrose IV 12/31/20 05:14 .Q0M USHA Protocol 3 MCG/KG/MIN Discontinued Medications Generic Name Dose Route Start Last Admin Trade Name Freq PRN Reason Stop Dose Admin Albuterol/Ipratropium Confirm 12/01/20 06:22 Duoneb 0.5-3 Mg/3 Ml Neb Administered 12/01/20 06:23 Dose 3 ml IH .STK-MED ONE Albuterol/Ipratropium 3 ml 12/01/20 06:59 Duoneb 0.5-3 Mg/3 Ml Neb IH 12/01/20 07:00 STAT ONE Methylprednisolone Sodium 0 mg 12/01/20 05:05 12/01/20 05:42 Succinate 125 mg/ Sterile IV 12/01/20 05:06 125 mg Water 2 ml STAT ONE Administration Fentanyl Citrate Confirm 12/01/20 03:46 Fentanyl 500 Mcg/10 Ml Vial Administered 12/01/20 03:47 Dose 1,500 mcg IV .STK-MED ONE Sodium Chloride 1,000 mls @ 999 mls/hr 11/30/20 20:45 11/30/20 21:50 Sodium Chloride 0.9% 1000 Ml IV 11/30/20 21:45 999 mls/hr .Q1H1M STA Administration Sodium Chloride Confirm 11/30/20 21:48 Sodium Chloride 0.9% 1000 Ml Administered 11/30/20 21:49 Dose 1,000 mls @ ud .ROUTE .STK-MED ONE Sodium Chloride Confirm 12/01/20 03:16 Sodium Chloride 0.9% 1000 Ml Administered 12/01/20 03:17 Dose 1,000 mls @ ud .ROUTE .STK-MED ONE Propofol Confirm 12/01/20 03:19 Propofol 1000 Mg/100 Ml Bottle Administered 12/01/20 03:20 Dose 100 mls @ ud IV .STK-MED ONE Sodium Chloride Confirm 12/01/20 03:47 Sodium Chloride 0.9% 150 Ml Administered 12/01/20 03:48 Dose 150 mls @ ud IV .STK-MED ONE Piperacillin Sod/Tazobactam 100 mls @ 200 mls/hr 12/01/20 05:03 12/01/20 07:31 Sod 3.375 gm/ Sodium Chloride IV 12/01/20 05:32 200 mls/hr STAT ONE Administration Sodium Chloride Confirm 12/01/20 05:39 Sodium Chloride 100ml Mini-Bag Plus Administered 12/01/20 05:40 Dose 100 mls @ ud IV .STK-MED ONE Propofol Confirm 12/01/20 07:24 Propofol 1000 Mg/100 Ml Bottle Administered 12/01/20 07:25 Dose 100 mls @ ud IV .STK-MED ONE Lorazepam Confirm 12/01/20 02:45 Ativan 2 Mg/1 Ml Vial Administered 12/01/20 02:46 Dose 2 mg .ROUTE .STK-MED ONE Lorazepam Confirm 12/01/20 03:51 Ativan 2 Mg/1 Ml Vial Administered 12/01/20 03:52 Dose 4 mg .ROUTE .STK-MED ONE Methylprednisolone Sodium Succinate Confirm 12/01/20 05:38 Solu-Medrol Administered 12/01/20 05:39 Dose 125 mg .ROUTE .STK-MED ONE Piperacillin Sod/Tazobactam Sod Confirm 12/01/20 05:38 Zosyn 3.375 Gm Vial Administered 12/01/20 05:39 Dose 3.375 gm IV .STK-MED ONE Sodium Bicarbonate 50 meq 12/01/20 06:36 12/01/20 06:39 Sodium Bicarbonate 50 Meq/50 Ml Abboject IV 12/01/20 06:37 50 meq STAT ONE Administration Sodium Bicarbonate 50 meq 12/01/20 06:37 12/01/20 06:39 Sodium Bicarbonate 50 Meq/50 Ml Abboject IV 12/01/20 06:38 50 meq STAT ONE Administration Sodium Bicarbonate Confirm 12/01/20 06:38 Sodium Bicarbonate 50 Meq/50 Ml Abboject Administered 12/01/20 06:39 Dose 100 meq IV .STK-MED ONE Lab/Rad Data: Laboratory Result Diagrams 11/30/20 21:10 11/30/20 21:10 Laboratory Results 12/01/20 12/01/20 12/01/20 Range/Units 06:14 05:47 04:41 WBC (4.0-10.5) K/mm3 RBC (4.1-5.6) M/mm3 Hgb (12.5-18.0) gm/dl Hct (42-50) % MCV (78-100) fl MCH (26-32) pg MCHC (32-36) g/dl RDW (11.5-14.0) % Plt Count (150-450) K/mm3 MPV (7.5-11.0) fl Gran % (36.0-66.0) % Eos # (Auto) (0-0.5) Absolute Lymphs (auto) (1.0-4.6) Absolute Monos (auto) (0.0-1.3) Lymphocytes % (24.0-44.0) % Monocytes % (0.0-12.0) % Eosinophils % (0.00-5.0) % Basophils % (0.0-0.4) % Absolute Granulocytes (1.4-6.9) Basophils # (0-0.4) Puncture Site LEFT RADIAL pCO2 79 H* (35-45) mmHg pO2 54 L (75-100) mmHg Base Excess -3.3 L (-2.0-2.0) O2 Saturation 77.2 L (94-100) g/dF ABG pH 7.15 L* (7.35-7.45) ABG HCO3 27.5 (22-28) ABG O2 Sat (Measured) 81.2 L (95-100) % Austen Test YES A-a Gradient 560 a/A Ratio 0.09 Hemoglobin 12.0 Carboxyhemoglobin 4.4 (0.0-6.9) % THgb Methemoglobin 0.5 L (1.4-1.5) % Temperature 37.0 C POC O2 Flow Rate 100 % Tidal Volume 500 cc PEEP 8.0 cmH2O Sodium (137-145) mmol/L Potassium 3.7 (3.5-5.1) mmol/L Chloride (98-107) mmol/L Carbon Dioxide (22-30) mmol/L Anion Gap (5-15) MEQ/L BUN (9-20) mg/dL Creatinine (0.66-1.25) mg/dL Estimated GFR ML/MIN Glucose (74-106) mg/dL POC Glucometer 183 H (74 to 106) mg/dL Calcium (8.4-10.2) mg/dL Total Bilirubin (0.2-1.3) mg/dL AST (17-59) U/L ALT (0-50) U/L Alkaline Phosphatase (38-126) U/L Troponin I (0.000-0.034) ng/mL Serum Total Protein (6.3-8.2) g/dL Albumin (3.5-5.0) g/dL Urine Color YELLOW (YELLOW) Urine Appearance CLEAR (CLEAR) Urine pH 6.0 (5-6) Ur Specific [place] 1.010 (1.005-1.025) Urine Protein NEGATIVE (Negative) Urine Ketones NEGATIVE (NEGATIVE) Urine Blood NEGATIVE (0-5) Ángel/ul Urine Nitrite NEGATIVE (NEGATIVE) Urine Bilirubin NEGATIVE (NEGATIVE) Urine Urobilinogen NORMAL (0-1) mg/dL Ur Leukocyte Esterase NEGATIVE (NEGATIVE) Urine WBC (Auto) NONE SEEN (0-5) /HPF Urine RBC (Auto) NONE SEEN (0-2) /HPF U Epithel Cells (Auto) NONE (FEW) /HPF Urine Bacteria (Auto) NONE (NEGATIVE) /HPF Urine Culture Reflexed NO (NO) Urine Glucose NEGATIVE (NEGATIVE) mg/dL ABO Group Rh Factor Antibody Screen (NEGATIVE) 12/01/20 12/01/20 11/30/20 Range/Units 04:40 04:20 23:45 WBC (4.0-10.5) K/mm3 RBC (4.1-5.6) M/mm3 Hgb (12.5-18.0) gm/dl Hct (42-50) % MCV (78-100) fl MCH (26-32) pg MCHC (32-36) g/dl RDW (11.5-14.0) % Plt Count (150-450) K/mm3 MPV (7.5-11.0) fl Gran % (36.0-66.0) % Eos # (Auto) (0-0.5) Absolute Lymphs (auto) (1.0-4.6) Absolute Monos (auto) (0.0-1.3) Lymphocytes % (24.0-44.0) % Monocytes % (0.0-12.0) % Eosinophils % (0.00-5.0) % Basophils % (0.0-0.4) % Absolute Granulocytes (1.4-6.9) Basophils # (0-0.4) Puncture Site RIGHT RADIAL pCO2 42 (35-45) mmHg pO2 44 L* (75-100) mmHg Base Excess 0.3 (-2.0-2.0) O2 Saturation 74.5 L (94-100) g/dF ABG pH 7.39 (7.35-7.45) ABG HCO3 25.4 (22-28) ABG O2 Sat (Measured) 78.4 L (95-100) % Austen Test YES A-a Gradient 617 a/A Ratio 0.07 Hemoglobin 12.0 Carboxyhemoglobin 4.3 (0.0-6.9) % THgb Methemoglobin 0.7 L (1.4-1.5) % Temperature 37.0 C POC O2 Flow Rate 100 % Tidal Volume 550 cc PEEP 5.0 cmH2O Sodium (137-145) mmol/L Potassium 3.6 (3.5-5.1) mmol/L Chloride (98-107) mmol/L Carbon Dioxide (22-30) mmol/L Anion Gap (5-15) MEQ/L BUN (9-20) mg/dL Creatinine (0.66-1.25) mg/dL Estimated GFR ML/MIN Glucose (74-106) mg/dL POC Glucometer (74 to 106) mg/dL Calcium (8.4-10.2) mg/dL Total Bilirubin (0.2-1.3) mg/dL AST (17-59) U/L ALT (0-50) U/L Alkaline Phosphatase (38-126) U/L Troponin I 0.038 H* 0.036 H* (0.000-0.034) ng/mL Serum Total Protein (6.3-8.2) g/dL Albumin (3.5-5.0) g/dL Urine Color (YELLOW) Urine Appearance (CLEAR) Urine pH (5-6) Ur Specific [place] (1.005-1.025) Urine Protein (Negative) Urine Ketones (NEGATIVE) Urine Blood (0-5) Ángel/ul Urine Nitrite (NEGATIVE) Urine Bilirubin (NEGATIVE) Urine Urobilinogen (0-1) mg/dL Ur Leukocyte Esterase (NEGATIVE) Urine WBC (Auto) (0-5) /HPF Urine RBC (Auto) (0-2) /HPF U Epithel Cells (Auto) (FEW) /HPF Urine Bacteria (Auto) (NEGATIVE) /HPF Urine Culture Reflexed (NO) Urine Glucose (NEGATIVE) mg/dL ABO Group Rh Factor Antibody Screen (NEGATIVE) 11/30/20 11/30/20 11/30/20 Range/Units 21:10 21:10 21:10 WBC (4.0-10.5) K/mm3 RBC (4.1-5.6) M/mm3 Hgb (12.5-18.0) gm/dl Hct (42-50) % MCV (78-100) fl MCH (26-32) pg MCHC (32-36) g/dl RDW (11.5-14.0) % Plt Count (150-450) K/mm3 MPV (7.5-11.0) fl Gran % (36.0-66.0) % Eos # (Auto) (0-0.5) Absolute Lymphs (auto) (1.0-4.6) Absolute Monos (auto) (0.0-1.3) Lymphocytes % (24.0-44.0) % Monocytes % (0.0-12.0) % Eosinophils % (0.00-5.0) % Basophils % (0.0-0.4) % Absolute Granulocytes (1.4-6.9) Basophils # (0-0.4) Puncture Site pCO2 (35-45) mmHg pO2 (75-100) mmHg Base Excess (-2.0-2.0) O2 Saturation (94-100) g/dF ABG pH (7.35-7.45) ABG HCO3 (22-28) ABG O2 Sat (Measured) (95-100) % Austen Test A-a Gradient a/A Ratio Hemoglobin Carboxyhemoglobin (0.0-6.9) % THgb Methemoglobin (1.4-1.5) % Temperature C POC O2 Flow Rate % Tidal Volume cc PEEP cmH2O Sodium 135 L (137-145) mmol/L Potassium 3.6 (3.5-5.1) mmol/L Chloride 97 L (98-107) mmol/L Carbon Dioxide 31 H (22-30) mmol/L Anion Gap 10.8 (5-15) MEQ/L BUN 11 (9-20) mg/dL Creatinine 0.70 (0.66-1.25) mg/dL Estimated GFR > 60.0 ML/MIN Glucose 126 H (74-106) mg/dL POC Glucometer (74 to 106) mg/dL Calcium 9.2 (8.4-10.2) mg/dL Total Bilirubin 0.60 (0.2-1.3) mg/dL AST 21 (17-59) U/L ALT 27 (0-50) U/L Alkaline Phosphatase 65 (38-126) U/L Troponin I 0.035 H (0.000-0.034) ng/mL Serum Total Protein 6.6 (6.3-8.2) g/dL Albumin 3.8 (3.5-5.0) g/dL Urine Color (YELLOW) Urine Appearance (CLEAR) Urine pH (5-6) Ur Specific [place] (1.005-1.025) Urine Protein (Negative) Urine Ketones (NEGATIVE) Urine Blood (0-5) Ángel/ul Urine Nitrite (NEGATIVE) Urine Bilirubin (NEGATIVE) Urine Urobilinogen (0-1) mg/dL Ur Leukocyte Esterase (NEGATIVE) Urine WBC (Auto) (0-5) /HPF Urine RBC (Auto) (0-2) /HPF U Epithel Cells (Auto) (FEW) /HPF Urine Bacteria (Auto) (NEGATIVE) /HPF Urine Culture Reflexed (NO) Urine Glucose (NEGATIVE) mg/dL ABO Group O Rh Factor POSITIVE Antibody Screen POSITIVE (NEGATIVE) 11/30/20 Range/Units 21:10 WBC 9.0 (4.0-10.5) K/mm3 RBC 4.05 L (4.1-5.6) M/mm3 Hgb 11.3 L (12.5-18.0) gm/dl Hct 35.7 L (42-50) % MCV 88.1 (78-100) fl MCH 27.9 (26-32) pg MCHC 31.7 L (32-36) g/dl RDW 16.1 H (11.5-14.0) % Plt Count 266 (150-450) K/mm3 MPV 10.2 (7.5-11.0) fl Gran % 66.7 H (36.0-66.0) % Eos # (Auto) 0.45 (0-0.5) Absolute Lymphs (auto) 1.75 (1.0-4.6) Absolute Monos (auto) 0.78 (0.0-1.3) Lymphocytes % 19.4 L (24.0-44.0) % Monocytes % 8.7 (0.0-12.0) % Eosinophils % 5.0 (0.00-5.0) % Basophils % 0.2 (0.0-0.4) % Absolute Granulocytes 6.00 (1.4-6.9) Basophils # 0.02 (0-0.4) Puncture Site pCO2 (35-45) mmHg pO2 (75-100) mmHg Base Excess (-2.0-2.0) O2 Saturation (94-100) g/dF ABG pH (7.35-7.45) ABG HCO3 (22-28) ABG O2 Sat (Measured) (95-100) % Austen Test A-a Gradient a/A Ratio Hemoglobin Carboxyhemoglobin (0.0-6.9) % THgb Methemoglobin (1.4-1.5) % Temperature C POC O2 Flow Rate % Tidal Volume cc PEEP cmH2O Sodium (137-145) mmol/L Potassium (3.5-5.1) mmol/L Chloride (98-107) mmol/L Carbon Dioxide (22-30) mmol/L Anion Gap (5-15) MEQ/L BUN (9-20) mg/dL Creatinine (0.66-1.25) mg/dL Estimated GFR ML/MIN Glucose (74-106) mg/dL POC Glucometer (74 to 106) mg/dL Calcium (8.4-10.2) mg/dL Total Bilirubin (0.2-1.3) mg/dL AST (17-59) U/L ALT (0-50) U/L Alkaline Phosphatase (38-126) U/L Troponin I (0.000-0.034) ng/mL Serum Total Protein (6.3-8.2) g/dL Albumin (3.5-5.0) g/dL Urine Color (YELLOW) Urine Appearance (CLEAR) Urine pH (5-6) Ur Specific [place] (1.005-1.025) Urine Protein (Negative) Urine Ketones (NEGATIVE) Urine Blood (0-5) Ángel/ul Urine Nitrite (NEGATIVE) Urine Bilirubin (NEGATIVE) Urine Urobilinogen (0-1) mg/dL Ur Leukocyte Esterase (NEGATIVE) Urine WBC (Auto) (0-5) /HPF Urine RBC (Auto) (0-2) /HPF U Epithel Cells (Auto) (FEW) /HPF Urine Bacteria (Auto) (NEGATIVE) /HPF Urine Culture Reflexed (NO) Urine Glucose (NEGATIVE) mg/dL ABO Group Rh Factor Antibody Screen (NEGATIVE) - Progress Progress: improved Progress Note: Case discussed with Dr. Dickerson who advises transfer to a facility who has pulmonology as patient may need to be bronched for further evaluation of hemoptysis. We are approaching downtime of our computer system for maintenance and upgrade. We are currently in the process of arranging transfer to a located within [facility] for formal pulmonology evaluation. 12/01/20 06:[address] Vazquez regarding decreased oxygen saturation on the vent. Dr. Vazquez advised increasing PEEP to 8 and starting patient on Nimbex paralytic 5 mics. Solu-Medrol administered. Blood cultures obtained. Zosyn administered. Leonie business systems analyst at [facility] advised decreasing PEEP from 550 to 500 and possibly increasing PEEP to 8 -10. We have been trying to transfer patient to various facilities. However no accepting facilities available. Facilities are limited due to bed availability. 12/01/20 06:26 Patient's oxygenation continue to drop in spite of adjusting PEEP. FiO2 is 100%. We are increasing PEEP to 10 at this point. Blood pressure decreased to 77/57. 12/01/20 06:27 We will repeat a chest x-ray at this time. 12/01/20 06:30 ABG gas resulted. PO2 saturation marginally increased from 44-54. Patient is more acidotic at this time. His PCO2 has increased. PCO2 increased from 42-79. pH is 7.51 down from 7.39. We are going to disconnect the ventilator and assess for possible breath stacking. 12/01/20 06:33 To later settings adjusted from SIMV to assist control. 12/01/20 06:[address] Vazquez agrees with switching from SIMV to assist control. We will also administer 2 amps of bicarb. 12/01/20 07:34 Patient's daughters presented to the ED. We discussed the CODE STATUS. Family request to keep him a full code. We are currently working on obtaining another peripheral line. We are also continuing to work on finding placement. However at this time there are no available beds. Case discussed with incoming physician Jorge L who accepts care. We attempted to obtain a Covid swab however obtain a Covid swab at this time is not possible due to policy. Discussed with Dr.: Camille Vazquez Counseled pt/family regarding: lab results, diagnosis, rad results - Departure Departure Disposition: Home Clinical Impression: Hemoptysis, Elevated troponin, alveolitis Condition: Stable Critical Care Time: No Referrals: JOSEPHINE HUMPHRIES [Primary Care Provider] -
[2020-11-30 22:41] LABS: ABO TYPING O; RH TYPING POSITIVE
[2020-11-30 22:43] LABS: Antibody Screen POSITIVE (NEGATIVE)
[2020-12-01] MEDS ORDERED: Ativan 2 MG/1 ML VIAL ONE ×2 (02:45→03:51)
[2020-12-01] MEDS ORDERED: Sodium Chloride 0.9% 1000 ML 1,000 ML ONE ×2 (03:16→10:05)
[2020-12-01] MEDS ORDERED: Propofol 1000 mg/100 ml Bottle 100 ML IV ONE ×2 (03:19→07:24)
[2020-12-01] MEDS ORDERED: FENTANYL 500 MCG/10 ML VIAL IV ONE (03:46)
[2020-12-01] MEDS ORDERED: Sodium Chloride 0.9% 150 ML 150 ML IV ONE (03:47)
[2020-12-01] MEDS ORDERED: Zosyn 3.375 GM Vial 3.375 GM in Sodium Chloride 100ML MINI-BAG PLUS 100 ML IV ONE (05:03)
[2020-12-01] MEDS ORDERED: solu-MEDROL 125 MG, Sterile H2O 10 ml 2 ML IV ONE ×2 (05:05)
[2020-12-01] MEDS ORDERED: Zosyn 3.375 GM Vial IV ONE (05:38)
[2020-12-01] MEDS ORDERED: solu-MEDROL ONE ×2 (05:38→08:25)
[2020-12-01] MEDS ORDERED: Sodium Chloride 100ML MINI-BAG PLUS 100 ML IV ONE (05:39)
[2020-12-01 05:46] LABS: A-aADO2 617; ABG POTASSIUM 3.6 (3.5-5.1); ARTERIAL BLD GAS O2 SATURATION 78.4 % (95-100); ARTERIAL BLD GAS TIDAL VOLUME 550 cc; ARTERIAL BLOOD GAS BASE EXCESS 0.3 (-2.0-2.0); ARTERIAL BLOOD GAS FIO2 100 %; ARTERIAL BLOOD GAS PCO2 42 mmHg (35-45); ARTERIAL BLOOD GAS pH 7.39 (7.35-7.45); CARBOXYHEMOGLOBIN 4.3 % THgb (0.0-6.9); HCO3- 25.4 (22-28); HGB O2 SAT 74.5 g/dF (94-100); Methhemoglobin 0.7 % (1.4-1.5)
[2020-12-01 05:47] LABS: ABG SITE RIGHT RADIAL; ALLEN TEST OK? YES; ARTERIAL BLOOD GAS PO2 44 mmHg (75-100)
[2020-12-01] MEDS ORDERED: DUONEB 0.5-3 MG/3 ml Neb IH ONE ×4 (06:22→08:14)
[2020-12-01 06:25] LABS: A-aADO2 560; ABG POTASSIUM 3.7 (3.5-5.1); ARTERIAL BLD GAS O2 SATURATION 81.2 % (95-100); ARTERIAL BLD GAS TIDAL VOLUME 500 cc; ARTERIAL BLOOD GAS BASE EXCESS -3.3 (-2.0-2.0); ARTERIAL BLOOD GAS FIO2 100 %; ARTERIAL BLOOD GAS PO2 54 mmHg (75-100); ARTERIAL BLOOD GAS pH 7.15 (7.35-7.45); CARBOXYHEMOGLOBIN 4.4 % THgb (0.0-6.9); HCO3- 27.5 (22-28); HGB O2 SAT 77.2 g/dF (94-100); Methhemoglobin 0.5 % (1.4-1.5)
[2020-12-01 06:26] LABS: ABG SITE LEFT RADIAL; ALLEN TEST OK? YES; ARTERIAL BLOOD GAS PCO2 79 mmHg (35-45)
[2020-12-01] MEDS ORDERED: SODIUM BICARBONATE 50 MEQ/50 ML ABBOJECT IV ONE ×3 (06:36→06:38)
[2020-12-01 06:41] LABS: Appearance CLEAR (CLEAR); Bilirubin NEGATIVE (NEGATIVE); Blood NEGATIVE Ery/ul (0-5); Glucose NEGATIVE (NEGATIVE); Ketones NEGATIVE (NEGATIVE); Leukocyte Esterase NEGATIVE (NEGATIVE); Nitrite NEGATIVE (NEGATIVE); Protein,Urine Dip NEGATIVE (Negative); RBC NONE SEEN /HPF (0-2); Urobilinogen NORMAL mg/dL (0-1); WBC NONE SEEN /HPF (0-5)
[2020-12-01] MEDS: LEVOPHED 4 MG/4 ML 4,000 MCG in Dextrose 5%/Water IV Soln. 500 ML 500 ML IV PRN ×2 (07:53→18:10)
[2020-12-01] MEDS ORDERED: Sterile H2O 10 ml IJ ONE (08:25)
[2020-12-01] MEDS ORDERED: solu-MEDROL IV ONE (08:25)
[2020-12-01] MEDS ORDERED: Vitamin K 1 MG IM ONE (08:25)
[2020-12-01] MEDS ORDERED: Vitamin K 10 MG/ML ONE (08:26)
[2020-12-01] MEDS ORDERED: VANCOMYCIN 1 GRAM/200 ML BAG 1 GM/200 ML PIGGYBACK IV SCH ×2 (08:30→09:45)
[2020-12-01 09:03] LABS: A-aADO2 494; ABG HEMOGLOBIN 11.6; ABG POTASSIUM 4.2 (3.5-5.1); ARTERIAL BLD GAS O2 SATURATION 99.1 % (95-100); ARTERIAL BLD GAS TIDAL VOLUME 500 cc; ARTERIAL BLOOD GAS BASE EXCESS 0.4 (-2.0-2.0); ARTERIAL BLOOD GAS FIO2 100 %; ARTERIAL BLOOD GAS PO2 135 mmHg (75-100); ARTERIAL BLOOD GAS VENT MODE A/C; CARBOXYHEMOGLOBIN 6.8 % THgb (0.0-6.9); HCO3- 29.4 (22-28); HGB O2 SAT 91.6 g/dF (94-100); Methhemoglobin 0.8 % (1.4-1.5)
[2020-12-01 09:04] LABS: ARTERIAL BLOOD GAS PCO2 67 mmHg (35-45); ARTERIAL BLOOD GAS pH 7.25 (7.35-7.45)
[2020-12-01 09:05] LABS: Hematocrit 37.2 % (42-50); Hemoglobin 11.2 gm/dl (12.5-18.0); Mean Cell Volume 92.5 fl (78-100); Mean Corpuscular Hemoglobin 27.9 pg (26-32); Mean Corpuscular Hgb Concent. 30.1 g/dl (32-36); Mean Platelet Volume 10.4 fl (7.5-11.0); Platelet Count 415 K/mm3 (150-450); Red Blood Count 4.02 M/mm3 (4.1-5.6); Red Cell Distribution Width 16.1 % (11.5-14.0)
[2020-12-01 09:05] LABS: ABG SITE rr
[2020-12-01 09:14] LABS: White Blood Count 28.7 K/mm3 (4.0-10.5)
[2020-12-01 09:27] LABS: ALBUMIN 3.6 g/dL (3.5-5.0); ALKALINE PHOSPHATASE 67 U/L (38-126); ANION GAP 13.6 MEQ/L (5-15); BLOOD UREA NITROGEN 12 mg/dL (9-20); CHLORIDE 100 mmol/L (98-107); Calcium 8.6 mg/dL (8.4-10.2); Carbon Dioxide 31 mmol/L (22-30); Creatinine 1 1.03 mg/dL (0.66-1.25); EST GLOMERULAR FILTRATION RATE > 60.0 ML/MIN; Glucose 278 mg/dL (74-106); NT PRO BNP 1840 pg/mL (0-900); Potassium 3.9 mmol/L (3.5-5.1); SGOT/AST 35 U/L (17-59); SGPT/ALT 26 U/L (0-50); SODIUM 140 mmol/L (137-145); Total Protein 6.2 g/dL (6.3-8.2)
[2020-12-01] MEDS ORDERED: LEVOPHED 4 MG/4 ML 4,000 MCG in Dextrose 5%/Water IV Soln. 500 ML 500 ML IV PRN (09:45)
[2020-12-01 09:47] LABS: FFP-ORDER READY TO INFUSE
[2020-12-01] MEDS ORDERED: solu-MEDROL IV SCH (13:00)
[2020-12-01 14:34] LABS: ANISOCYTOSIS 1+; BAND 9 % (0.0-2.0); Lymphocytes 11 % (24-44); Monocyte 1 % (0.0-12.0); Neutrophils 79 % (36.-66.); Total Cells Counted 100
[2020-12-01 14:35] LABS: Platelet Estimate NORMAL (NORMAL); Toxic Granulation 1+
[2020-12-01] MEDS: solu-MEDROL 125 MG, Sterile H2O 10 ml 2 ML IV SCH ×4 (14:35→18:43)
[2020-12-01] MEDS ORDERED: HOLD METFORMIN PRODUCTS FOR 48 HOURS MC SCH (14:45)
[2020-12-01] MEDS: Versed 50 MG/ 10 Ml MDV*** 50 MG in Sodium Chloride 0.9% 250 ML 240 ML IV PRN (14:46)
[2020-12-01] MEDS: Zosyn 3.375 GM Vial 3.375 GM in Sodium Chloride 100ML MINI-BAG PLUS 100 ML IV SCH ×2 (14:55→18:44)
[2020-12-01] MEDS: DUONEB 0.5-3 MG/3 ml Neb IH SCH ×3 (15:15→22:30)
[2020-12-01] MEDS ORDERED: Quelicin Fliptop 200 MG/10 ML IV ONE (15:45)
[2020-12-01] MEDS ORDERED: Amidate 20 MG/10 ML IV ONE (15:45)
[2020-12-01] MEDS ORDERED: NIMBEX IV ONE (15:47)
[2020-12-01] MEDS ORDERED: [UNRECOGNIZED DRUG - OTHER] IV ONE (15:47)
[2020-12-01] MEDS ORDERED: Sodium Chloride 0.9% 500 ML 500 ML IV ONE (16:06)
--- NOTE | 2020-12-01 16:17 | XRAY ---
Exam: CT of the chest with IV contrast, per PE protocol from 11/30/2020. CTDI: 31.86 mGy Comparison: CT of the chest with IV contrast from 10/21/2020. Indication: 50-year-old male with shortness of breath; rule out PE. In addition, hemoptysis and history of pneumonia. The patient has a history of right lower lobe pulmonary emboli on the prior CT of the chest with IV contrast from 10/21/2020. Technique: Post-IV contrast axial images were obtained through the chest using the PE protocol with 100 cc of Isovue-370 contrast material. Reconstructed coronal and sagittal images were created and reviewed. Findings: On the current study, the pulmonary arteries are fairly well-opacified and prior clot within the right lower lobe pulmonary arteries is no longer seen. No other evidence of pulmonary emboli is seen. Nor do I see evidence of thoracic aortic aneurysm or dissection. The heart size is mildly enlarged without evidence of pericardial effusion. Abundant mediastinal fat is seen. I see evidence of prior CABG and midline sternotomy. There is again noted be elevation of the right hemidiaphragm. I again see an enlarged right perihilar lymph node which measures 2.3 cm in short axis. This is about the same as that seen on 10/21/2020. Some other smaller nonspecific mediastinal lymph nodes are seen. I believe there are also some mildly prominent lymph nodes within the right infrahilar projection. See axial image #99. I believe this is slightly more prominent as compared to 10/21/2020. There again appears to be a minimal posterior layering left pleural effusion. Extensive groundglass opacifications are noted throughout the right lung as well as the left mid and lower lung field. This appears to have mildly progressed as compared to 10/21/2020. A dense consolidation is not seen. 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 Correlate clinically. There appears to be mild bronchiectasis within both lower lobes. There is no pneumothorax. The visualized upper abdomen demonstrates an unremarkable appearance of the adrenal glands. No other significant upper abdominal abnormalities are seen. The gallbladder is mostly contracted. The skeleton reveals no acute fracture or aggressive bone lesion. There is slight central superior endplate compression at T1 and T7 which are unchanged from 10/21/2020. There is evidence of prior vertebroplasty at L1. Mild diffuse thoracic spondylosis is seen. Impression: 1. I no longer see any evidence of pulmonary embolus, as noted within the right lower lobe on 10/21/2020. 2. However, there is extensive bilateral groundglass disease within both lungs with bilateral lower lobe bronchiectasis. Overall, there appears to be moderate progression of disease compared to 10/21/2020. These findings are suggestive of progressive alveolitis, likely secondary to chronic inflammatory or inhalational etiologies.
[2020-12-01] MEDS: VANCOMYCIN 1 GRAM/200 ML BAG 1 GM/200 ML PIGGYBACK IV SCH ×2 (16:55→23:08)
[2020-12-01] MEDS ORDERED: Lubrifresh P.M. 3.5 gm Ointment OP PRN (17:03)
--- NOTE | 2020-12-01 18:23 | XRAY ---
Exam: AP supine portable chest film from 0349 hours on 12/01/2020. Comparison: AP portable chest from 10/21/2020. Indication: ET tube placement. Findings: Endotracheal tube tip is seen within the proximal thoracic trachea about 6.3 cm proximal to the enoc. This should probably be advanced some. Surgical clips, coronary artery bypass markers, and evidence of sternal wires are seen consistent with prior CABG. Dense airspace disease throughout the right lung and the lower 75% of the left lung is seen causing significant obscuration of the cardiac margins. These findings could be due to extensive bilateral pneumonia or pulmonary edema. These findings have markedly worsened as compared to 10/21/2020. Only the left lung apex remains aerated. I do not see a pneumothorax. Degenerative changes are seen within the thoracic spine. Impression: 1. Endotracheal tube tip is in the projection of the proximal thoracic trachea about 6.3 cm above the enoc. Consider advancing the endotracheal tube some. 2. Extensive diffuse dense airspace disease is seen throughout both lung muñoz, except for the left lung apex. This represents a marked worsening as compared to 10/21/2020. This may be due to extensive bilateral pneumonia, pulmonary edema, or some combination thereof. 3. Status post CABG.
--- NOTE | 2020-12-01 18:26 | XRAY ---
Exam: AP supine portable chest film from 0636 hours on 12/01/2020. Comparison: AP supine portable chest film from 0349 hours on 12/01/2020. Indication: Hypoxia on ventilator; hemoptysis. Findings: Endotracheal tube tip is seen at the upper T2 level within the proximal thoracic trachea. This is located about 6.6 cm above the enoc. Consider advancing the endotracheal tube some. I again see evidence of prior CABG with midline sternotomy. Extensive airspace disease is seen throughout the entire right lung and the lower 75% of the left lung. There is slightly improved aeration with bilateral air bronchograms noted. The image is still markedly abnormal. Only the left lung apex remains clear. No significant blunting is seen within either lateral costophrenic angle. Impression: 1. Endotracheal tube tip is again seen within the projection of the proximal thoracic trachea at the upper T2 level about 6.6 cm above the enoc. Consider advancing the endotracheal tube some. 2. There is slightly improved aeration within the lung muñoz, although diffuse bilateral airspace disease remains throughout the entire right lung and the lower 75% of the left lung. Air bronchograms are now seen within these infiltrates. The findings are consistent with extensive bilateral pneumonia and/or pulmonary edema. 3. Only the left lung apex remains clear. 4. Status post CABG.
[2020-12-01 20:43] LABS: A-aADO2 325; ABG HEMOGLOBIN 11.2; ABG POTASSIUM 4.5 (3.5-5.1); ARTERIAL BLD GAS O2 SATURATION 99.8 % (95-100); ARTERIAL BLD GAS TIDAL VOLUME 500 cc; ARTERIAL BLOOD GAS BASE EXCESS -0.5 (-2.0-2.0); ARTERIAL BLOOD GAS FIO2 100 %; ARTERIAL BLOOD GAS PCO2 111 mmHg (35-45); ARTERIAL BLOOD GAS PO2 249 mmHg (75-100); ARTERIAL BLOOD GAS VENT MODE A/C; CARBOXYHEMOGLOBIN 1.9 % THgb (0.0-6.9); HCO3- 32.9 (22-28); HGB O2 SAT 96.7 g/dF (94-100); Methhemoglobin 1.3 % (1.4-1.5)
[2020-12-01 20:44] LABS: ABG SITE RIGHT RADIAL; ARTERIAL BLOOD GAS pH 7.08 (7.35-7.45)
[2020-12-01] MEDS: Nimbex 200MG/20 Ml MDV (HIGH RISK MED)** 200 MG in Dextrose 5%/Water IV Soln. 250 ML 18... IV SCH ×2 (22:04→22:18)
[2020-12-01] MEDS: SUBLIMAZE 1000 Mcg/ 20 Ml*** 1,500 MCG in Sodium Chloride 0.9% 150 ML 120 ML IV SCH (22:18)
[2020-12-02] MEDS: Zosyn 3.375 GM Vial 3.375 GM in Sodium Chloride 100ML MINI-BAG PLUS 100 ML IV SCH ×5 (00:43→23:30)
[2020-12-02] MEDS: solu-MEDROL 125 MG, Sterile H2O 10 ml 2 ML IV SCH ×10 (00:44→23:30)
[2020-12-02] MEDS: DUONEB 0.5-3 MG/3 ml Neb IH SCH ×6 (02:28→22:25)
[2020-12-02] MEDS: SUBLIMAZE 1000 Mcg/ 20 Ml*** 1,500 MCG in Sodium Chloride 0.9% 150 ML 120 ML IV SCH ×2 (02:54→08:01)
[2020-12-02 04:50] LABS: A-aADO2 449; ABG HEMOGLOBIN 10.9; ABG POTASSIUM 4.4 (3.5-5.1); ABG SITE RIGHT RADIAL; ARTERIAL BLD GAS O2 SATURATION 99.2 % (95-100); ARTERIAL BLD GAS TIDAL VOLUME 500 cc; ARTERIAL BLOOD GAS BASE EXCESS 3.2 (-2.0-2.0); ARTERIAL BLOOD GAS FIO2 100 %; ARTERIAL BLOOD GAS PCO2 62 mmHg (35-45); ARTERIAL BLOOD GAS PO2 187 mmHg (75-100); ARTERIAL BLOOD GAS VENT MODE A/C; ARTERIAL BLOOD GAS pH 7.31 (7.35-7.45); CARBOXYHEMOGLOBIN 4.3 % THgb (0.0-6.9); HCO3- 31.2 (22-28); HGB O2 SAT 93.7 g/dF (94-100); Methhemoglobin 1.2 % (1.4-1.5)
[2020-12-02 05:57] LABS: Absolute Neutrophil Ct (ANC) 10.99 (1.4-6.9); BASOPHIL % 0.3 % (0.0-0.4); Basophil (Absolute #) 0.04 (0-0.4); Eosinophil (Absolute #) 0 (0-0.5); Hematocrit 34.6 % (42-50); Hemoglobin 10.2 gm/dl (12.5-18.0); Lymphocyte (Absolute #) 0.67 (1.0-4.6); Lymphocytes % 5.5 % (24.0-44.0); Mean Cell Volume 92.5 fl (78-100); Mean Corpuscular Hemoglobin 27.3 pg (26-32); Mean Corpuscular Hgb Concent. 29.5 g/dl (32-36); Mean Platelet Volume 10.5 fl (7.5-11.0); Monocyte (Absolute #) 0.54 (0.0-1.3); Monocytes % 4.4 % (0.0-12.0); Neutrophil % 89.8 % (36.0-66.0); Platelet Count 241 K/mm3 (150-450); Red Blood Count 3.74 M/mm3 (4.1-5.6); Red Cell Distribution Width 15.5 % (11.5-14.0); White Blood Count 12.2 K/mm3 (4.0-10.5)
[2020-12-02 06:08] LABS: ALBUMIN 3.9 g/dL (3.5-5.0); ALKALINE PHOSPHATASE 57 U/L (38-126); ANION GAP 15.6 MEQ/L (5-15); BLOOD UREA NITROGEN 19 mg/dL (9-20); CHLORIDE 96 mmol/L (98-107); Calcium 8.6 mg/dL (8.4-10.2); Carbon Dioxide 31 mmol/L (22-30); Creatinine 1 0.81 mg/dL (0.66-1.25); Direct Bilirubin 0.4 mg/dL (0.0-0.4); EST GLOMERULAR FILTRATION RATE > 60.0 ML/MIN; Glucose 346 mg/dL (74-106); SGOT/AST 33 U/L (17-59); SGPT/ALT 24 U/L (0-50); SODIUM 138 mmol/L (137-145); Total Protein 6.7 g/dL (6.3-8.2)
[2020-12-02 07:08] LABS: Potassium 4.7 mmol/L (3.5-5.1)
[2020-12-02] MEDS: VANCOMYCIN 1 GRAM/200 ML BAG 1 GM/200 ML PIGGYBACK IV SCH ×3 (07:53→22:06)
[2020-12-02] MEDS: Nimbex 200MG/20 Ml MDV (HIGH RISK MED)** 200 MG in Dextrose 5%/Water IV Soln. 250 ML 18... IV SCH ×2 (07:54→09:06)
--- NOTE | 2020-12-02 08:16 | CONS ---
AMENDED REPORT: CONSULT DATE: 12/01/2020 HISTORY: Deangelo was seen in the emergency room this morning where he presented for acute on chronic hypoxic respiratory failure. He had underlying COVID pneumonia from September to October 21, 2020. He came in with noted hemoptysis. He was placed on the ventilator. His FiO2 was 100%. PEEP was at 10. His blood gases were drawn venously per respiratory and evaluated. He had CT chest done that showed alveolitis. He continued to desaturate and the air was protected with the ventilator. At this time he still remained acidemic. He was administered 2 amps of bicarb. He will be provided Solu-Medrol 60 mg IV every six hours. He will continue IV antibiotics. He is to have hemoglobin and hematocrit drawn every six hours. He was to receive 2 units of fresh frozen plasma as well as 5 mg of vitamin K IM x1. He has not had the ability to have his bed transferred at this time because all hospitals within so many miles are on diversion so he is to stay within [facility] at this time until there is a bed available. Dr. Vinay Vazquez was discussed the case. The patient remains critical. Prognosis remains guarded and after the patient was seen this morning the family had decided that the patient would be most benefited to become Do Not Resuscitate and we will continue to follow and manage in pulmonary medicine. As dictated by UMBERTO Rivera
[2020-12-02] MEDS ORDERED: HIBICLENS 4% Scrub TOP SCH (10:00)
--- NOTE | 2020-12-02 10:11 | XRAY ---
Exam: AP portable supine chest film from 9:20 AM from 12/02/2020. Comparison: AP upright portable chest film from 6:23 AM from 12/02/2020 Indication: Gastric tube placement. Findings: 2 AP supine portable images were obtained. There has been interval placement of a gastric tube with the tip pointing inferiorly near the gastroesophageal junction. The gap marker is noted about 7.6 cm above the anticipated gastroesophageal junction. I would recommend advancing the gastric tube at least 4 inches. The patient also has an endotracheal tube with the tip in the projection of the proximal thoracic trachea about 6.2 cm above the enoc. This is in better position as compared to the earlier chest film from today. Mild cardiomegaly, evidence of prior CABG with midline sternotomy, and mild elevation right hemidiaphragm are again seen. Evidence of prior kyphoplasty is seen at L1. Mild diffuse bilateral mixed interstitial/alveolar opacities are seen throughout each lung with relative sparing of the left lung apex. Again, there appears to be slightly improved aeration from the chest film obtained earlier today. Impression: 1. A gastric tube has been placed with the tip pointing inferiorly near the gastroesophageal junction and the gap marker well above the gastroesophageal junction. I would recommend advancing the gastric tube about 4 inches. 2. The endotracheal tube appears in better position at the inferior T2 level about 6.2 cm above the enoc. 3. I again see moderately extensive bilateral interstitial/alveolar opacities throughout the entire right lung and lower 75% of the left lung, although the airspace disease may be slightly decreased as compared to the earlier chest film from today, perhaps due to better aeration.
[2020-12-02] MEDS: Lubrifresh P.M. 3.5 gm Ointment OP SCH ×2 (10:17→21:44)
[2020-12-02] MEDS: CHLORHEXIDINE GLUCONATE MM SCH ×2 (10:17→21:43)
[2020-12-02] MEDS: Versed 50 MG/ 10 Ml MDV*** 50 MG in Sodium Chloride 0.9% 250 ML 240 ML IV PRN (12:39)
--- NOTE | 2020-12-02 14:56 | CONS ---
CONSULT DATE: 12/02/2020 HISTORY: Deangelo Blackwell is a 50 year-old male well known to me from multiple recent hospitalizations including one with COVID, who was apparently sent to a nursing facility in [place]. I received a call yesterday morning from emergency room physician reporting the patient had been transferred to [facility] Emergency Room with complaints of hemoptysis and shortness of breath. The patient decompensated rather rapidly while being in the emergency room and had to be intubated. His x-ray showed worsening pulmonary infiltrates. I advised that he placed on sedation paralytic along with antibiotics and steroids. ABG yesterday showed worsening hypercapnia which was treated with incremental increase in respiratory rate and tidal volume. Gases this morning have shown improvement in pH as well as pCO2 and pO2. PHYSICAL EXAMINATION: The patient currently remains sedated chemically paralyzed and appears comfortable. He is afebrile. Heart rate is 90, blood pressure is 134/70. Saturating 100%. HEENT: Normocephalic. Oral exam limited. ET and NG tube are in place. NECK: Supple, short. CVS: First and second heart sounds are normal, regular, rhythmic. RESPIRATORY: Shows diminished breath sounds. Rhonchi and crackles are heard. ABDOMEN: Obese. EXTREMITIES: Trace edema is noted. LABORATORY DATA AND TESTS: Labs and x-rays were reviewed. ABG's reviewed as well. ASSESSMENT: This is a 50 year old male admitted with: 1) Acute on chronic hypoxic respiratory failure. 2) Hemoptysis likely from alveolar hemorrhage, stable since admission. 3) Mild anemia from blood loss, stable. 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 The patient was scheduled to have surgical biopsy with Dr. Lizarraga however did not keep his appointment. 5) History of obesity. 6) Diabetes mellitus. RECOMMENDATIONS: 1) Continue mechanical ventilation. 2) FIO2 was reduced to 85%, will have to wait until this can be further reduced down to 50%. 3) Continue sedation and paralytic in view of patient's advanced pulmonary changes, will keep him paralyzed to improve ventilator synchrony and improve gas exchange and avoid barotrauma. 4) Continue other supportive care. I had a long discussion with the patient's mother at bedside and explained to her regarding critical nature of his illness and likely poor prognosis. I will be available as needed.
[2020-12-02] MEDS: Lactated Ringers 1,000 ML IV SCH (15:14)
--- NOTE | 2020-12-02 17:15 | XRAY ---
Exam: AP upright portable chest film from 4:53 PM on 12/02/2020. Comparison: AP supine portable chest films from 9:20 AM on 12/02/2020. Indication: Gastric tube dislodged and has been reinserted. Findings: 2 AP portable films were obtained. The gastric tube tip is seen against the greater curvature aspect of the upper portion of the stomach. The gap marker is located near the gastroesophageal junction. I would recommend advancing the gastric tube about 2 inches. Endotracheal tube tip is seen within the trachea above 7 cm proximal to the enoc at the T2-T3 level. There is evidence of prior CABG and midline sternotomy. The left ventricular contour is somewhat prominent. I again see diffuse bilateral interstitial/alveolar opacities throughout the right lung and the lower two thirds of the left lung. Aeration appears somewhat improved from the earlier film from today. The left lung apex appears clear. There appears to be a small amount of patchy density near the left lateral costophrenic angle which could be due to infiltrate and/or atelectasis. Degenerative changes are seen within the spine. There is evidence of prior kyphoplasty at L1 and L2. Impression: 1. Gastric tube is seen with the tip against the greater curvature aspect of the upper portion of the stomach with the gap marker near the projection of the gastroesophageal junction. I would suggest advancing the gastric tube about 2 inches. 2. Compared to the portable chest radiograph from this morning, I believe there is some improved aeration throughout both lungs, although mild diffuse bilateral interstitial/alveolar opacities remain throughout the right lung and the lower two thirds of the left lung. 3. Some superimposed patchy airspace density is seen near the left lateral costophrenic angle tip which may represent atelectasis and/or infiltrate. 4. Endotracheal tube in place, as discussed above.
[2020-12-02] MEDS: Pepcid 20 MG VIAL IV SCH (21:43)
[2020-12-03] MEDS: Nimbex 200MG/20 Ml MDV (HIGH RISK MED)** 200 MG in Dextrose 5%/Water IV Soln. 250 ML 18... IV SCH ×2 (00:19→19:24)
[2020-12-03] MEDS: DUONEB 0.5-3 MG/3 ml Neb IH SCH ×5 (02:25→18:40)
[2020-12-03] MEDS: Lactated Ringers 1,000 ML IV SCH ×2 (03:01→15:59)
[2020-12-03 05:01] LABS: ARTERIAL BLOOD GAS pH 7.26 (7.35-7.45)
[2020-12-03 05:02] LABS: ARTERIAL BLD GAS O2 SATURATION 99.1 % (95-100); ARTERIAL BLOOD GAS BASE EXCESS 4.9 (-2.0-2.0); ARTERIAL BLOOD GAS PCO2 77 mmHg (35-45); ARTERIAL BLOOD GAS PO2 197 mmHg (75-100); HCO3- 34.6 (22-28)
[2020-12-03 05:03] LABS: A-aADO2 313; ABG HEMOGLOBIN 10.6; ABG POTASSIUM 4.4 (3.5-5.1); ARTERIAL BLD GAS TIDAL VOLUME 500 cc; ARTERIAL BLOOD GAS FIO2 85 %; ARTERIAL BLOOD GAS PEEP 10 cmH2O; ARTERIAL BLOOD GAS VENT MODE A/C; ARTERIAL BLOOD GAS VENT RATE 28 /MIN; CARBON DIOXIDE 37 mEq/L (23-27); CARBOXYHEMOGLOBIN 3.2 % THgb (0.0-6.9); HGB O2 SAT 94.4 g/dF (94-100); Methhemoglobin 1.4 % (1.4-1.5)
[2020-12-03 05:04] LABS: ABG SITE RIGHT RADIAL
[2020-12-03 05:23] LABS: Hematocrit 34.3 % (42-50); Hemoglobin 10.2 gm/dl (12.5-18.0); Mean Corpuscular Hemoglobin 27.6 pg (26-32); Mean Corpuscular Hgb Concent. 29.7 g/dl (32-36); Mean Platelet Volume 10.1 fl (7.5-11.0); Platelet Count 295 K/mm3 (150-450); Red Blood Count 3.69 M/mm3 (4.1-5.6); Red Cell Distribution Width 15.7 % (11.5-14.0); White Blood Count 12.6 K/mm3 (4.0-10.5)
[2020-12-03] MEDS: Zosyn 3.375 GM Vial 3.375 GM in Sodium Chloride 100ML MINI-BAG PLUS 100 ML IV SCH ×3 (05:43→17:56)
[2020-12-03] MEDS: solu-MEDROL 125 MG, Sterile H2O 10 ml 2 ML IV SCH ×6 (05:43→17:56)
[2020-12-03 05:44] LABS: BLOOD UREA NITROGEN 21 mg/dL (9-20); CHLORIDE 97 mmol/L (98-107); Calcium 9.4 mg/dL (8.4-10.2); Carbon Dioxide 31 mmol/L (22-30); EST GLOMERULAR FILTRATION RATE > 60.0 ML/MIN; Glucose 283 mg/dL (74-106); SODIUM 139 mmol/L (137-145)
[2020-12-03 05:46] LABS: Potassium 4.5 mmol/L (3.5-5.1)
[2020-12-03 06:10] LABS: ANION GAP 15.5 MEQ/L (5-15)
[2020-12-03] MEDS: VANCOMYCIN 1 GRAM/200 ML BAG 1 GM/200 ML PIGGYBACK IV SCH ×2 (06:16→16:34)
[2020-12-03] MEDS: CHLORHEXIDINE GLUCONATE MM SCH (11:14)
[2020-12-03] MEDS: Lubrifresh P.M. 3.5 gm Ointment OP SCH (11:14)
[2020-12-03] MEDS: SUBLIMAZE 1000 Mcg/ 20 Ml*** 1,500 MCG in Sodium Chloride 0.9% 150 ML 120 ML IV SCH (11:16)
[2020-12-03] MEDS: Pepcid 20 MG VIAL IV SCH (11:21)
--- NOTE | 2020-12-03 14:31 | XRAY ---
Exam: AP upright portable chest film from 6:23 AM on 12/02/2020. Comparison: AP portable chest film from 6:36 AM on 12/01/2020. Indication: 50-year-old male on ventilator. Findings: Endotracheal tube is seen with the tip near the cervical-thoracic junction in the projection of the trachea. This is about 10.1 cm above the enoc. Correlate clinically. The heart size appears mildly enlarged representing no change. There is evidence of prior CABG and midline sternotomy. Ventilatory apparatus overlies a portion of the left lung apex and neck. EKG leads are seen in place. I again see mild elevation of the right hemidiaphragm. I again see mixed interstitial and alveolar opacities throughout the entire right lung and the majority the left lung excluding the left lung apex. There appears to be mildly improved aeration as compared to 12/01/2020 at 6:36 AM. However, the radiographic appearance is still markedly abnormal. I see no definite pneumothorax or significant pleural effusion. Impression: 1. Compared to the AP supine portable chest film from 6:36 AM on 12/01/2020, there appears to be some mildly improved aeration within the extensive interstitial/alveolar opacities throughout the right lung and lower 75% of the left lung. However, the radiographic appearance is still markedly abnormal. There is no pneumothorax. 2. Endotracheal tube tip is seen in the projection of the trachea at the cervical-thoracic junction about 10.1 cm above the enoc. Correlate clinically. 3. Mild cardiomegaly and evidence of prior CABG are again seen. 4. Mild elevation of the right hemidiaphragm is again seen.
[2020-12-03 14:33] LABS: A-aADO2 154; ABG POTASSIUM 4.3 (3.5-5.1); ARTERIAL BLD GAS O2 SATURATION 99.7 % (95-100); ARTERIAL BLD GAS TIDAL VOLUME 600 cc; ARTERIAL BLOOD GAS BASE EXCESS 13.5 (-2.0-2.0); ARTERIAL BLOOD GAS FIO2 50 %; ARTERIAL BLOOD GAS PCO2 39 mmHg (35-45); ARTERIAL BLOOD GAS PO2 154 mmHg (75-100); CARBOXYHEMOGLOBIN 1.4 % THgb (0.0-6.9); HCO3- 36.6 (22-28); HGB O2 SAT 97.1 g/dF (94-100); Methhemoglobin 1.2 % (1.4-1.5)
--- NOTE | 2020-12-03 14:33 | XRAY ---
Indication: Patient on ventilator. Comparison: One day earlier. Portable chest unchanged again demonstrating cardiomegaly, CABG, and diffuse bilateral airspace disease without consolidation/large effusion. Stable NG tube and endotracheal tube in good position. No new cardiopulmonary abnormalities.
[2020-12-03 14:34] LABS: ARTERIAL BLOOD GAS pH 7.58 (7.35-7.45)
[2020-12-03 14:35] LABS: ABG SITE LEFT RADIAL; ALLEN TEST OK? YES
--- NOTE | 2020-12-03 15:15 | PROG NOTE ---
Events noted. Chart reviewed. DATE: 12/03/2020 HISTORY: The patient remains on mechanical ventilator, sedated, chemically paralyzed. He had uneventful past 24 hours. The patient's blood gases this morning showed permissive hypercapnia although improved oxygenation. He has remained hemodynamically stable. He is afebrile. Heart rate 90, blood pressure 134/70. Saturating 100%. PHYSICAL EXAMINATION: HEENT: Normocephalic. Pupils are sluggishly reactive. ET tube and NG tube are in place. NECK: Short and supple. CVS: First and second heart sounds are normal, regular, rhythmic. RESPIRATORY: Shows improved breath sounds, crackles have improved as well. ABDOMEN: Obese. EXTREMITIES: Trace edema is noted. LABORATORY DATA AND TESTS: Troponin I is 0.116. Sodium 139, potassium 4.5, chloride 97, bicarb 31, glucose 283, BUN 21, creatinine 0.7. White count 12.6, hemoglobin 10.2, hematocrit 34, PLT 295,000. The pH 7.26, pCO2 77, pO2 197 on assist controlled rate of 28, tidal volume of 500, FiO2 85% and PEEP of 10. FiO2 was reduced to 50%, still able to maintain oxygen saturation of 100%. Chest x-ray reviewed. ASSESSMENT: This is a 50 year old male admitted with: 1) Acute on chronic hypoxic respiratory failure. 2) Chronic hypercapnia with space ventilation. 3) Pulmonary fibrosis after COVID-19. 4) Alveolar hemorrhage, stable hemoglobin without any overt hemoptysis in past 24 hours. 5) Diabetes mellitus. 6) Hypertension. RECOMMENDATIONS: The patient is stable from pulmonary standpoint. FiO2 reduced. Continue other supportive care. Will initiate nutritional support. Likely stop paralytics tomorrow. Allow permissive hypercapnia. Reduce steroids. Continue antibiotics and supportive care. Discussed this plan of care with patient's mother at bedside.
[2020-12-03] MEDS: Versed 50 MG/ 10 Ml MDV*** 50 MG in Sodium Chloride 0.9% 250 ML 240 ML IV PRN (15:59)
[2020-12-03] MEDS: HUMULIN R SQ PRN (17:48)
[2020-12-03] MEDS ORDERED: Sodium Chloride 3 ML UD NEBULES IH ONE (19:02)
[2020-12-03] MEDS ORDERED: Ativan 2 MG/1 ML VIAL ONE (21:31)
[2020-12-03] MEDS ORDERED: TRANDATE 20 MG/4 ML SYRINGE IV ONE (21:31)
[2020-12-03] MEDS ORDERED: TRANDATE 20 MG/4 ML SYRINGE IV PRN (22:00)
[2020-12-03] MEDS ORDERED: Ativan 2 MG/1 ML VIAL IV PRN (22:00)
[2020-12-04] MEDS ORDERED: TROUGH DRUG LEVELS IJ ONE (06:30)
[2020-12-04 06:36] LABS: ARTERIAL BLOOD GAS BASE EXCESS 9.7 (-2.0-2.0); ARTERIAL BLOOD GAS PCO2 69 mmHg (35-45); ARTERIAL BLOOD GAS PO2 87 mmHg (75-100); ARTERIAL BLOOD GAS pH 7.35 (7.35-7.45); HCO3- 38.1 (22-28)
[2020-12-04 06:37] LABS: Hematocrit 29.4 % (42-50); Hemoglobin 8.6 gm/dl (12.5-18.0); Mean Cell Volume 95.5 fl (78-100); Mean Corpuscular Hemoglobin 27.9 pg (26-32); Mean Corpuscular Hgb Concent. 29.3 g/dl (32-36); Mean Platelet Volume 10.2 fl (7.5-11.0); Platelet Count 252 K/mm3 (150-450); Red Blood Count 3.08 M/mm3 (4.1-5.6); Red Cell Distribution Width 15.8 % (11.5-14.0); White Blood Count 8.6 K/mm3 (4.0-10.5)
[2020-12-04 06:37] LABS: A-aADO2 183; ABG HEMOGLOBIN 9.7; ABG POTASSIUM 4.1 (3.5-5.1); ABG SITE RIGHT RADIAL; ARTERIAL BLD GAS O2 SATURATION 98 % (95-100); ARTERIAL BLOOD GAS FIO2 50 %; CARBON DIOXIDE 40 mEq/L (23-27); CARBOXYHEMOGLOBIN 1.7 % THgb (0.0-6.9); HGB O2 SAT 98 g/dF (94-100)
[2020-12-04 06:39] LABS: ARTERIAL BLD GAS TIDAL VOLUME 600 cc; ARTERIAL BLOOD GAS PEEP 8 cmH2O; ARTERIAL BLOOD GAS VENT RATE 18 /MIN
[2020-12-04] MEDS: DUONEB 0.5-3 MG/3 ml Neb IH SCH ×7 (06:50→22:15)
[2020-12-04] MEDS ORDERED: Sodium Chloride 3 ML UD NEBULES IH PRN (07:14)
[2020-12-04 07:32] LABS: ALBUMIN 2.9 g/dL (3.5-5.0); ALKALINE PHOSPHATASE 55 U/L (38-126); ANION GAP 8.5 MEQ/L (5-15); BLOOD UREA NITROGEN 26 mg/dL (9-20); CHLORIDE 101 mmol/L (98-107); Calcium 9.2 mg/dL (8.4-10.2); Carbon Dioxide 35 mmol/L (22-30); Creatinine 1 0.74 mg/dL (0.66-1.25); EST GLOMERULAR FILTRATION RATE > 60.0 ML/MIN; Glucose 314 mg/dL (74-106); Potassium 4.3 mmol/L (3.5-5.1); SGOT/AST 15 U/L (17-59); SGPT/ALT 17 U/L (0-50); SODIUM 141 mmol/L (137-145); Total Protein 5.2 g/dL (6.3-8.2)
[2020-12-04] MEDS ORDERED: Lasix 20 MG/2 ML IV ONE ×2 (09:00→11:30)
[2020-12-04] MEDS: HUMULIN R SQ PRN ×4 (09:07→21:59)
--- NOTE | 2020-12-04 09:17 | XRAY ---
Indication: Patient on ventilator. Comparison: One day earlier. Portable chest continues to remain unchanged again demonstrating cardiomegaly and diffuse bilateral airspace disease without consolidation/large effusion. Again incidental CABG, NG tube, and endotracheal tube. No new cardiopulmonary abnormalities.
--- NOTE | 2020-12-04 09:43 | XRAY ---
Indication: OG tube placement. Comparison: None KUB nonacute and nonobstructed with OG tube tip left upper quadrant presumed in stomach and a Basilio catheter. Solid organs unremarkable. Osseous structures intact with mild osteopenia, mild/moderate multilevel degenerative spondylosis, and L1/L2 kyphoplasty.
[2020-12-04 10:05] LABS: A-aADO2 225; ABG HEMOGLOBIN 9.2; ABG POTASSIUM 3.9 (3.5-5.1); ARTERIAL BLD GAS O2 SATURATION 99.8 % (95-100); ARTERIAL BLOOD GAS BASE EXCESS 8.4 (-2.0-2.0); ARTERIAL BLOOD GAS FIO2 60 %; ARTERIAL BLOOD GAS PO2 123 mmHg (75-100); ARTERIAL BLOOD GAS pH 7.36 (7.35-7.45); CARBOXYHEMOGLOBIN 1.7 % THgb (0.0-6.9); HCO3- 36.2 (22-28); HGB O2 SAT 97.2 g/dF (94-100); Methhemoglobin 0.9 % (1.4-1.5)
[2020-12-04 10:06] LABS: ARTERIAL BLOOD GAS PCO2 64 mmHg (35-45); ARTERIAL BLOOD GAS VENT MODE AC
[2020-12-04 10:07] LABS: ABG SITE RIGHT BRACHIAL; ARTERIAL BLD GAS TIDAL VOLUME 550 cc; ARTERIAL BLOOD GAS PEEP 8 cmH2O; ARTERIAL BLOOD GAS VENT RATE 20 /MIN
--- NOTE | 2020-12-04 11:06 | XRAY ---
Indication: Tube placement. Comparison: Taken early in the day. Portable chest demonstrates endotracheal tube tip now 5.5 cm above enoc, previously 9 cm. Remaining chest unchanged again demonstrating cardiomegaly with CABG, diffuse bilateral airspace disease, and NG tube.
[2020-12-04] MEDS: Pepcid 20 MG VIAL IV SCH ×3 (11:21→21:42)
[2020-12-04] MEDS: Lubrifresh P.M. 3.5 gm Ointment OP SCH ×3 (11:23→21:43)
[2020-12-04] MEDS: CHLORHEXIDINE GLUCONATE MM SCH ×3 (11:24→21:42)
[2020-12-04] MEDS: VANCOMYCIN 1 GRAM/200 ML BAG 1 GM/200 ML PIGGYBACK IV SCH ×3 (11:29→21:53)
[2020-12-04] MEDS: solu-MEDROL 125 MG, Sterile H2O 10 ml 2 ML IV SCH ×6 (11:38→18:30)
[2020-12-04] MEDS: Zosyn 3.375 GM Vial 3.375 GM in Sodium Chloride 100ML MINI-BAG PLUS 100 ML IV SCH ×3 (11:43→19:28)
[2020-12-04] MEDS: Nimbex 200MG/20 Ml MDV (HIGH RISK MED)** 200 MG in Dextrose 5%/Water IV Soln. 250 ML 18... IV SCH ×3 (11:52→19:51)
[2020-12-04] MEDS: SUBLIMAZE 1000 Mcg/ 20 Ml*** 1,500 MCG in Sodium Chloride 0.9% 150 ML 120 ML IV SCH ×4 (11:53→22:42)
[2020-12-04] MEDS ORDERED: DUONEB 0.5-3 MG/3 ml Neb IH ONE (17:31)
[2020-12-04] MEDS: Lactated Ringers 1,000 ML IV SCH ×2 (19:03→19:52)
[2020-12-04] MEDS: Versed 50 MG/ 10 Ml MDV*** 50 MG in Sodium Chloride 0.9% 250 ML 240 ML IV PRN (20:51)
[2020-12-05] MEDS: solu-MEDROL 125 MG, Sterile H2O 10 ml 2 ML IV SCH ×10 (00:11→23:56)
[2020-12-05] MEDS: HUMULIN R SQ PRN ×4 (00:11→17:49)
[2020-12-05] MEDS: Zosyn 3.375 GM Vial 3.375 GM in Sodium Chloride 100ML MINI-BAG PLUS 100 ML IV SCH ×5 (00:12→23:56)
[2020-12-05] MEDS: Nimbex 200MG/20 Ml MDV (HIGH RISK MED)** 200 MG in Dextrose 5%/Water IV Soln. 250 ML 18... IV SCH ×2 (02:41→19:30)
[2020-12-05] MEDS: DUONEB 0.5-3 MG/3 ml Neb IH SCH ×6 (02:55→23:01)
[2020-12-05] MEDS ORDERED: Sodium Chloride 3 ML UD NEBULES IH ONE ×3 (03:05→13:18)
[2020-12-05 04:39] LABS: A-aADO2 215; ABG HEMOGLOBIN 8.9; ABG POTASSIUM 3.3 (3.5-5.1); ABG SITE RIGHT RADIAL; ALLEN TEST OK? YES; ARTERIAL BLD GAS O2 SATURATION 99.6 % (95-100); ARTERIAL BLD GAS TIDAL VOLUME 550 cc; ARTERIAL BLOOD GAS BASE EXCESS 9.4 (-2.0-2.0); ARTERIAL BLOOD GAS FIO2 60 %; ARTERIAL BLOOD GAS PCO2 49 mmHg (35-45); ARTERIAL BLOOD GAS PO2 152 mmHg (75-100); ARTERIAL BLOOD GAS VENT MODE A/C; ARTERIAL BLOOD GAS VENT RATE 20 /MIN; ARTERIAL BLOOD GAS pH 7.46 (7.35-7.45); CARBOXYHEMOGLOBIN 5.7 % THgb (0.0-6.9); HCO3- 34.8 (22-28); HGB O2 SAT 93.1 g/dF (94-100); Methhemoglobin 0.8 % (1.4-1.5)
[2020-12-05 04:45] LABS: Hematocrit 28.6 % (42-50); Hemoglobin 8.5 gm/dl (12.5-18.0); Mean Cell Volume 93.8 fl (78-100); Mean Corpuscular Hemoglobin 27.9 pg (26-32); Mean Corpuscular Hgb Concent. 29.7 g/dl (32-36); Mean Platelet Volume 9.9 fl (7.5-11.0); Platelet Count 232 K/mm3 (150-450); Red Blood Count 3.05 M/mm3 (4.1-5.6); Red Cell Distribution Width 15.8 % (11.5-14.0); White Blood Count 8.2 K/mm3 (4.0-10.5)
[2020-12-05 04:56] LABS: ALBUMIN 3.1 g/dL (3.5-5.0); ALKALINE PHOSPHATASE 52 U/L (38-126); ANION GAP 7.6 MEQ/L (5-15); BLOOD UREA NITROGEN 27 mg/dL (9-20); CHLORIDE 102 mmol/L (98-107); Calcium 9.3 mg/dL (8.4-10.2); Carbon Dioxide 36 mmol/L (22-30); Creatinine 1 0.73 mg/dL (0.66-1.25); EST GLOMERULAR FILTRATION RATE > 60.0 ML/MIN; Glucose 307 mg/dL (74-106); Potassium 3.3 mmol/L (3.5-5.1); SGOT/AST 14 U/L (17-59); SGPT/ALT 16 U/L (0-50); SODIUM 142 mmol/L (137-145); Total Protein 5.6 g/dL (6.3-8.2)
[2020-12-05] MEDS: SUBLIMAZE 1000 Mcg/ 20 Ml*** 1,500 MCG in Sodium Chloride 0.9% 150 ML 120 ML IV SCH ×2 (09:29→19:31)
[2020-12-05] MEDS: Versed 50 MG/ 10 Ml MDV*** 50 MG in Sodium Chloride 0.9% 250 ML 240 ML IV PRN ×2 (09:30→22:06)
[2020-12-05] MEDS: Pepcid 20 MG VIAL IV SCH ×2 (10:07→21:59)
[2020-12-05] MEDS: VANCOMYCIN 1 GRAM/200 ML BAG 1 GM/200 ML PIGGYBACK IV SCH ×2 (10:07→21:59)
[2020-12-05] MEDS: Lubrifresh P.M. 3.5 gm Ointment OP SCH ×2 (10:07→21:59)
[2020-12-05] MEDS: CHLORHEXIDINE GLUCONATE MM SCH ×2 (10:13→21:59)
[2020-12-05] MEDS ORDERED: BUMEX 1 MG IV ONE (13:16)
[2020-12-05] MEDS: Lactated Ringers 1,000 ML IV SCH (13:27)
[2020-12-05] MEDS: BUMEX 1 MG IV SCH (20:55)
[2020-12-06] MEDS: HUMULIN R SQ PRN ×6 (01:22→21:57)
[2020-12-06] MEDS: DUONEB 0.5-3 MG/3 ml Neb IH SCH ×6 (04:01→22:18)
[2020-12-06 04:55] LABS: A-aADO2 255; ABG HEMOGLOBIN 9.7; ABG POTASSIUM 3.8 (3.5-5.1); ARTERIAL BLD GAS O2 SATURATION 97.7 % (95-100); ARTERIAL BLD GAS TIDAL VOLUME 550 cc; ARTERIAL BLOOD GAS BASE EXCESS 8.6 (-2.0-2.0); ARTERIAL BLOOD GAS FIO2 60 %; ARTERIAL BLOOD GAS PCO2 73 mmHg (35-45); ARTERIAL BLOOD GAS PO2 82 mmHg (75-100); ARTERIAL BLOOD GAS VENT MODE A/C; ARTERIAL BLOOD GAS pH 7.32 (7.35-7.45); HCO3- 37.6 (22-28); Methhemoglobin 0.8 % (1.4-1.5)
[2020-12-06 04:56] LABS: Absolute Neutrophil Ct (ANC) 10.07 (1.4-6.9); BASOPHIL % 0.2 % (0.0-0.4); Basophil (Absolute #) 0.02 (0-0.4); Eosinophil (Absolute #) 0 (0-0.5); Hematocrit 32.3 % (42-50); Hemoglobin 9.3 gm/dl (12.5-18.0); Lymphocyte (Absolute #) 0.34 (1.0-4.6); Mean Corpuscular Hemoglobin 27.9 pg (26-32); Mean Corpuscular Hgb Concent. 28.8 g/dl (32-36); Monocyte (Absolute #) 0.75 (0.0-1.3); Monocytes % 6.7 % (0.0-12.0); Neutrophil % 90.1 % (36.0-66.0); Platelet Count 231 K/mm3 (150-450); Red Blood Count 3.33 M/mm3 (4.1-5.6); Red Cell Distribution Width 16.4 % (11.5-14.0); White Blood Count 11.2 K/mm3 (4.0-10.5)
[2020-12-06 04:56] LABS: ABG SITE RIGHT RADIAL; ALLEN TEST OK? YES; ARTERIAL BLOOD GAS VENT RATE 16 /MIN
[2020-12-06 05:06] LABS: ALBUMIN 3.5 g/dL (3.5-5.0); ALKALINE PHOSPHATASE 58 U/L (38-126); ANION GAP 11.6 MEQ/L (5-15); BLOOD UREA NITROGEN 24 mg/dL (9-20); CHLORIDE 103 mmol/L (98-107); Calcium 9.4 mg/dL (8.4-10.2); Carbon Dioxide 36 mmol/L (22-30); Creatinine 1 0.78 mg/dL (0.66-1.25); EST GLOMERULAR FILTRATION RATE > 60.0 ML/MIN; Glucose 325 mg/dL (74-106); Potassium 3.9 mmol/L (3.5-5.1); SGOT/AST 15 U/L (17-59); SGPT/ALT 17 U/L (0-50); SODIUM 147 mmol/L (137-145); Total Protein 6.1 g/dL (6.3-8.2)
[2020-12-06] MEDS: Zosyn 3.375 GM Vial 3.375 GM in Sodium Chloride 100ML MINI-BAG PLUS 100 ML IV SCH ×3 (05:11→17:54)
[2020-12-06] MEDS: solu-MEDROL 125 MG, Sterile H2O 10 ml 2 ML IV SCH ×6 (05:19→17:54)
[2020-12-06] MEDS: SUBLIMAZE 1000 Mcg/ 20 Ml*** 1,500 MCG in Sodium Chloride 0.9% 150 ML 120 ML IV SCH ×2 (05:51→16:18)
[2020-12-06] MEDS ORDERED: BUMEX 1 MG IV STA (08:42)
[2020-12-06] MEDS: BUMEX 1 MG IV SCH ×2 (08:46→19:58)
[2020-12-06] MEDS ORDERED: Haldol 5 MG IM ONE (09:00)
[2020-12-06] MEDS ORDERED: TROUGH DRUG LEVELS IJ ONE (09:30)
[2020-12-06] MEDS: Nimbex 200MG/20 Ml MDV (HIGH RISK MED)** 200 MG in Dextrose 5%/Water IV Soln. 250 ML 18... IV SCH ×2 (09:44→10:12)
[2020-12-06 10:15] LABS: Slide Review 1 YES
[2020-12-06] MEDS: Lubrifresh P.M. 3.5 gm Ointment OP SCH ×2 (10:16→21:58)
[2020-12-06] MEDS: CHLORHEXIDINE GLUCONATE MM SCH ×2 (10:16→22:21)
[2020-12-06] MEDS: Pepcid 20 MG VIAL IV SCH ×2 (10:17→21:57)
[2020-12-06] MEDS: VANCOMYCIN 1 GRAM/200 ML BAG 1 GM/200 ML PIGGYBACK IV SCH ×2 (10:41→21:57)
[2020-12-06] MEDS: Versed 50 MG/ 10 Ml MDV*** 50 MG in Sodium Chloride 0.9% 250 ML 240 ML IV PRN (11:26)
[2020-12-06] MEDS: FEVERALL 650 MG PR PRN ×3 (12:14→19:59)
[2020-12-06] MEDS: Lactated Ringers 1,000 ML IV SCH (14:35)
--- NOTE | 2020-12-06 18:27 | XRAY ---
Indication: Reevaluate NG tube and endotracheal tube. Comparison: Taken earlier in the day. Portable chest again demonstrates endotracheal tube tip 7 cm above enoc and NG tube traversing chest with tip presumed in stomach. Grossly stable cardiomegaly and diffuse bilateral airspace disease. No new cardiopulmonary abnormalities. Comment: Preliminary interpretation made by C. No critical discrepancy.
[2020-12-07] MEDS: Nimbex 200MG/20 Ml MDV (HIGH RISK MED)** 200 MG in Dextrose 5%/Water IV Soln. 250 ML 18... IV SCH ×3 (00:06→21:49)
[2020-12-07] MEDS: Versed 50 MG/ 10 Ml MDV*** 50 MG in Sodium Chloride 0.9% 250 ML 240 ML IV PRN ×2 (00:06→12:01)
[2020-12-07] MEDS: SUBLIMAZE 1000 Mcg/ 20 Ml*** 1,500 MCG in Sodium Chloride 0.9% 150 ML 120 ML IV SCH ×3 (00:43→14:48)
[2020-12-07] MEDS: Zosyn 3.375 GM Vial 3.375 GM in Sodium Chloride 100ML MINI-BAG PLUS 100 ML IV SCH ×3 (00:43→18:08)
[2020-12-07] MEDS: solu-MEDROL 125 MG, Sterile H2O 10 ml 2 ML IV SCH ×8 (00:43→18:07)
[2020-12-07] MEDS: FEVERALL 650 MG PR PRN ×3 (01:09→18:08)
[2020-12-07] MEDS: HUMULIN R SQ PRN ×6 (01:10→21:08)
[2020-12-07] MEDS: DUONEB 0.5-3 MG/3 ml Neb IH SCH ×6 (02:03→22:53)
[2020-12-07 02:34] LABS: A-aADO2 180; ABG HEMOGLOBIN 8.8; ABG POTASSIUM 3.8 (3.5-5.1); ARTERIAL BLD GAS O2 SATURATION 99.7 % (95-100); ARTERIAL BLD GAS TIDAL VOLUME 550 cc; ARTERIAL BLOOD GAS BASE EXCESS 11.2 (-2.0-2.0); ARTERIAL BLOOD GAS FIO2 60 %; ARTERIAL BLOOD GAS PCO2 57 mmHg (35-45); ARTERIAL BLOOD GAS PEEP 8 cmH2O; ARTERIAL BLOOD GAS PO2 177 mmHg (75-100); ARTERIAL BLOOD GAS VENT MODE A/C; ARTERIAL BLOOD GAS VENT RATE 20 /MIN; ARTERIAL BLOOD GAS pH 7.43 (7.35-7.45); CARBOXYHEMOGLOBIN 1.7 % THgb (0.0-6.9); HCO3- 37.8 (22-28); HGB O2 SAT 96.9 g/dF (94-100); Methhemoglobin 1.1 % (1.4-1.5)
[2020-12-07 02:35] LABS: ABG SITE LEFT RADIAL; ALLEN TEST OK? YES
[2020-12-07 05:01] LABS: Hematocrit 30.8 % (42-50); Hemoglobin 8.7 gm/dl (12.5-18.0); Mean Cell Volume 97.5 fl (78-100); Mean Corpuscular Hemoglobin 27.5 pg (26-32); Mean Corpuscular Hgb Concent. 28.2 g/dl (32-36); Mean Platelet Volume 10.6 fl (7.5-11.0); Platelet Count 202 K/mm3 (150-450); Red Blood Count 3.16 M/mm3 (4.1-5.6); Red Cell Distribution Width 16.5 % (11.5-14.0); White Blood Count 10.8 K/mm3 (4.0-10.5)
[2020-12-07 05:20] LABS: ALBUMIN 3.3 g/dL (3.5-5.0); ALKALINE PHOSPHATASE 59 U/L (38-126); ANION GAP 11.3 MEQ/L (5-15); BLOOD UREA NITROGEN 26 mg/dL (9-20); CHLORIDE 104 mmol/L (98-107); Calcium 9.1 mg/dL (8.4-10.2); Carbon Dioxide 36 mmol/L (22-30); Creatinine 1 0.65 mg/dL (0.66-1.25); EST GLOMERULAR FILTRATION RATE > 60.0 ML/MIN; Glucose 325 mg/dL (74-106); Potassium 3.8 mmol/L (3.5-5.1); SGOT/AST 21 U/L (17-59); SGPT/ALT 21 U/L (0-50); SODIUM 148 mmol/L (137-145)
[2020-12-07 07:13] LABS: ANISOCYTOSIS 1+; BAND 2 % (0.0-2.0); Lymphocytes 6 % (24-44); Monocyte 1 % (0.0-12.0); Neutrophils 91 % (36.-66.); Nucleated Red Blood Cell 3 %; Platelet Estimate NORMAL (NORMAL); Total Cells Counted 100; Toxic Granulation 1+
[2020-12-07] MEDS: BUMEX 1 MG IV SCH ×2 (08:31→21:08)
--- NOTE | 2020-12-07 09:15 | XRAY ---
Indication: Patient on ventilator. Comparison: One day earlier. Portable chest grossly unchanged again demonstrating marked cardiomegaly with CABG and diffuse bilateral airspace disease without consolidation/large effusion. Stable endotracheal tube and NG tube. No new cardiopulmonary abnormalities.
[2020-12-07] MEDS: Pepcid 20 MG VIAL IV SCH ×2 (09:44→22:08)
[2020-12-07] MEDS: CHLORHEXIDINE GLUCONATE MM SCH ×2 (09:44→22:08)
[2020-12-07] MEDS: VANCOMYCIN 1 GRAM/200 ML BAG 1 GM/200 ML PIGGYBACK IV SCH ×2 (09:44→22:31)
[2020-12-07] MEDS: Lubrifresh P.M. 3.5 gm Ointment OP SCH ×2 (09:45→22:08)
--- NOTE | 2020-12-07 12:41 | PROG NOTE ---
DATE: 12/05/2020 Events noted. Chart reviewed. HISTORY: I discussed the case with respiratory therapy yesterday. The patient's ET tube was changed for blown cuff. He remains sedated, chemically paralyzed on mechanical ventilator, hemodynamically stable, afebrile. Heart rate 90 blood pressure 134/80. Saturating 100%. PHYSICAL EXAMINATION: HEENT: Normocephalic. Pupils are sluggishly reactive. ET tube and NG tube are in place. NECK: Supple, short. CVS: First and second heart sounds are normal, regular, rhythmic. RESPIRATORY: Shows diminished breath sounds. ABDOMEN: Obese. EXTREMITIES: No significant edema is noted. LABORATORY DATA AND TESTS: Labs, x-rays, ABG's were reviewed. ASSESSMENT: This is a 50 year old male admitted with: 1) Acute on chronic hypoxic respiratory failure. 2) Pulmonary alveolar hemorrhages, clinically stable. 3) Post-COVID pulmonary fibrosis. 4) Diabetes mellitus. 5) Hypertension. 6) Obesity. RECOMMENDATIONS: 1) The patient appears to be gradually improving with the reduced ventilation requirements. FIO2 reduced to 50%. Respiratory rate reduced to 16. In view of this, we will resume tube feed. 2) Will attempt to get him off of paralytics likely tomorrow, followed by weaning trials in next day or two. I discussed this plan of care with the patient's mother. His condition remains critical however he has shown gradual clinical improvement, will continue to follow up.
[2020-12-07] MEDS ORDERED: TROUGH DRUG LEVELS IJ ONE (21:30)
[2020-12-07] MEDS: CLINDAMYCIN-D5W 600 MG/50 ML*** 600 MG/50 ML BAG IV SCH (22:10)
[2020-12-08] MEDS: SUBLIMAZE 1000 Mcg/ 20 Ml*** 1,500 MCG in Sodium Chloride 0.9% 150 ML 120 ML IV SCH (01:13)
[2020-12-08] MEDS: Versed 50 MG/ 10 Ml MDV*** 50 MG in Sodium Chloride 0.9% 250 ML 240 ML IV PRN (01:17)
[2020-12-08] MEDS: Zosyn 3.375 GM Vial 3.375 GM in Sodium Chloride 100ML MINI-BAG PLUS 100 ML IV SCH ×2 (01:22→05:56)
[2020-12-08] MEDS: solu-MEDROL 125 MG, Sterile H2O 10 ml 2 ML IV SCH ×4 (01:22→05:55)
[2020-12-08] MEDS: DUONEB 0.5-3 MG/3 ml Neb IH SCH ×2 (02:40→07:00)
[2020-12-08 03:00] LABS: A-aADO2 269; ABG HEMOGLOBIN 15.4; ABG POTASSIUM 3.9 (3.5-5.1); ARTERIAL BLD GAS O2 SATURATION 96.7 % (95-100); ARTERIAL BLD GAS TIDAL VOLUME 550 cc; ARTERIAL BLOOD GAS BASE EXCESS 13.1 (-2.0-2.0); ARTERIAL BLOOD GAS FIO2 60 %; ARTERIAL BLOOD GAS PO2 74 mmHg (75-100); ARTERIAL BLOOD GAS pH 7.39 (7.35-7.45); CARBOXYHEMOGLOBIN 1.6 % THgb (0.0-6.9); HCO3- 41.2 (22-28); HGB O2 SAT 94.1 g/dF (94-100); Methhemoglobin 1.1 % (1.4-1.5)
[2020-12-08 03:01] LABS: ARTERIAL BLOOD GAS PCO2 68 mmHg (35-45)
[2020-12-08 03:02] LABS: ABG SITE LEFT RADIAL; ALLEN TEST OK? YES
[2020-12-08] MEDS: HUMULIN R SQ PRN ×2 (04:36→07:46)
[2020-12-08] MEDS: CLINDAMYCIN-D5W 600 MG/50 ML*** 600 MG/50 ML BAG IV SCH (05:19)
[2020-12-08 05:21] LABS: Absolute Neutrophil Ct (ANC) 10.99 (1.4-6.9); BASOPHIL % 0.2 % (0.0-0.4); Basophil (Absolute #) 0.02 (0-0.4); Eosinophil (Absolute #) 0 (0-0.5); Hematocrit 30.2 % (42-50); Hemoglobin 8.4 gm/dl (12.5-18.0); Lymphocyte (Absolute #) 0.29 (1.0-4.6); Lymphocytes % 2.5 % (24.0-44.0); Mean Cell Volume 98.7 fl (78-100); Mean Corpuscular Hemoglobin 27.5 pg (26-32); Mean Corpuscular Hgb Concent. 27.8 g/dl (32-36); Mean Platelet Volume 11.2 fl (7.5-11.0); Monocyte (Absolute #) 0.51 (0.0-1.3); Monocytes % 4.3 % (0.0-12.0); Platelet Count 200 K/mm3 (150-450); Red Blood Count 3.06 M/mm3 (4.1-5.6); Red Cell Distribution Width 16.6 % (11.5-14.0); White Blood Count 11.8 K/mm3 (4.0-10.5)
[2020-12-08 06:20] LABS: ALBUMIN 3.2 g/dL (3.5-5.0); ALKALINE PHOSPHATASE 51 U/L (38-126); BLOOD UREA NITROGEN 31 mg/dL (9-20); CHLORIDE 105 mmol/L (98-107); Calcium 9.3 mg/dL (8.4-10.2); Creatinine 1 0.52 mg/dL (0.66-1.25); EST GLOMERULAR FILTRATION RATE > 60.0 ML/MIN; Glucose 299 mg/dL (74-106); Potassium 4.2 mmol/L (3.5-5.1); SGOT/AST 25 U/L (17-59); SGPT/ALT 19 U/L (0-50); SODIUM 149 mmol/L (137-145); Total Protein 5.9 g/dL (6.3-8.2)
[2020-12-08 06:32] LABS: Carbon Dioxide 36 mmol/L (22-30)
[2020-12-08 06:34] LABS: ANION GAP 12.2 MEQ/L (5-15)
[2020-12-08] MEDS: Nimbex 200MG/20 Ml MDV (HIGH RISK MED)** 200 MG in Dextrose 5%/Water IV Soln. 250 ML 18... IV SCH (07:27)
[2020-12-08] MEDS: BUMEX 1 MG IV SCH (07:41)
[2020-12-08 07:58] LABS: ANISOCYTOSIS 1+; BAND 8 % (0.0-2.0); Hypochromia 2+; Lymphocytes 1 % (24-44); Monocyte 1 % (0.0-12.0); Neutrophils 90 % (36.-66.); Platelet Estimate NORMAL (NORMAL); Polychromasia 1+; Total Cells Counted 100
[2020-12-08] MEDS ORDERED: Ativan 2 MG/1 ML VIAL IV PRN (08:49)
[2020-12-08 09:04] VITALS: BP 146/103
--- NOTE | 2020-12-08 09:04 | XRAY ---
Indication: Patient on ventilator. Comparison: One day earlier. Portable chest continues to remain unchanged again demonstrating cardiomegaly with CABG, diffuse bilateral airspace disease, and endotracheal tube/NG tube in situ. No new cardiopulmonary abnormalities.
[2020-12-08] MEDS: Lubrifresh P.M. 3.5 gm Ointment OP SCH (09:16)
[2020-12-08] MEDS: CHLORHEXIDINE GLUCONATE MM SCH (09:16)
[2020-12-08] MEDS: Pepcid 20 MG VIAL IV SCH (09:26)
[2020-12-08] MEDS: VANCOMYCIN 1 GRAM/200 ML BAG 1 GM/200 ML PIGGYBACK IV SCH (09:26)
[2020-12-08] MEDS ORDERED: Lasix 40 MG/4 ML IV SCH (10:00)
[2020-12-08 10:09] VITALS: PULSE 110; O2SAT 97
--- NOTE | 2020-12-08 10:10 | XRAY ---
Indication: Patient on ventilator. Comparison: One day earlier. Portable chest unchanged again demonstrating cardiomegaly with CABG, diffuse bilateral airspace disease without consolidation/large effusion, NG tube, and endotracheal tube. No new cardiopulmonary abnormalities.
--- NOTE | 2020-12-08 10:12 | XRAY ---
Indication: Patient on ventilator. Comparison: None Portable chest remains unchanged again demonstrating cardiomegaly with CABG and diffuse bilateral airspace disease without consolidation/large effusion. NG tube and endotracheal tube remains in situ. No new cardiopulmonary abnormalities.
--- NOTE | 2020-12-16 22:19 | PCM.HP ---
History of Present Illness - Chief Complaint Chief Complaint: ARDS Date: 12/01/20 History of Present Illness: is a 50 year old male. Pt. presented to ER with rapidly progessing sob. Pt. was found to be in ARDS and intubated in ER, after 14 hours in ER awating transfer, it was decided to admit to [facility], I discussed with present family members treatment plans and fully evaluated patient while in Er. Pt. intubated with full sedation he was unable to answer any questions and all history obtained from family and chart. - Review of Systems Constitutional: No Fever, No Chills Eyes: No Symptoms Ears, Nose, & Throat: No Symptoms Respiratory: Cough, Short Of Breath, Other (hemoptysis) Cardiac: Orthopnea Abdominal/Gastrointestinal: No Abdominal Pain, No Nausea, No Vomiting, No Diarrhea Genitourinary Symptoms: No Dysuria Musculoskeletal: No Back Pain, No Neck Pain Skin: No Rash Neurological: No Dizziness, No Focal Weakness, No Sensory Changes Psychological: No Symptoms Endocrine: No Symptoms Hematologic/Lymphatic: No Symptoms Immunological/Allergic: No Symptoms Medications & Allergies Home Medications: Home Medication List Metoprolol Tartrate 25 mg PO BID 01/14/13 [History Confirmed 12/06/20] Aspirin 81 mg PO DAILY 07/13/17 [History Confirmed 12/06/20] Furosemide 40 mg [Lasix 40 MG] 40 mg PO BID 07/13/17 [History Confirmed 12/06/20] Sertraline HCl 100 mg PO DAILY 07/13/17 [History Confirmed 12/06/20] Trazodone HCl 50 mg [Desyrel 50 mg] 50 mg PO HS 02/16/19 [History Confirmed 12/06/20] Clopidogrel Bisulfate 75 mg [PLAVIX 75 MG Tablet] 75 mg PO DAILY 07/27/19 [History Confirmed 12/06/20] Atorvastatin Calcium 80 mg PO HS 09/16/19 [History Confirmed 12/06/20] lisinopriL [Zestril] 2.5 mg PO DAILY 09/16/19 [History Confirmed 12/06/20] Albuterol Sulfate [Albuterol Sulfate Hfa] 2 inh PO Q6H PRN 08/24/20 [History Confirmed 12/06/20] Nitroglycerin 0.4 mg Tablet [Nitrostat 0.4 MG Tablet] 0.4 mg SL UD 10/15/20 [History Confirmed 12/06/20] Potassium Chloride 10 Meq Tab* [Klor Con 10 MEQ] 20 meq PO DAILY 10/15/20 [History Confirmed 12/06/20] Sodium Chloride [Saline Nasal [place]] 1 spray NS TID PRN PRN 10/15/20 [History Confirmed 12/06/20] Albuterol/Ipratropium 3ml Neb* [DUONEB 0.5-3 MG/3 ml Neb] 3 ml IH Q4H PRN PRN 12/06/20 [History Confirmed 12/06/20] Apixaban [Eliquis] 5 mg PO BID 12/06/20 [History Confirmed 12/06/20] Famotidine [Pepcid] 40 mg PO BID 12/06/20 [History Confirmed 12/06/20] Hydroxyzine HCl 25 mg [Atarax 25 mg] 12.5 mg PO Q6H PRN PRN 12/06/20 [History Confirmed 12/06/20] Magnesium Oxide 400 mg [Mag-Ox 400] 400 mg PO BID 12/06/20 [History Confirmed 12/06/20] Metformin HCl 500 mg [Glucophage 500 MG] 500 mg PO BID 12/06/20 [History Confirmed 12/06/20] Midodrine HCl 5 mg [Proamatine 5 mg] 5 mg PO Q8H 12/06/20 [History Confirmed 12/06/20] Multivitamin 1 each PO DAILY 12/06/20 [History Confirmed 12/06/20] Omeprazole 20 mg PO DAILY 12/06/20 [History Confirmed 12/06/20] Allergies/Adverse Reactions: Allergies Allergy/AdvReac Type Severity Reaction Status Date / Time No Known Drug Allergies Allergy Verified 11/30/20 21:04 - Past Medical History Past Medical History: Yes Neurological History: Stroke, TIA ENT History: Other Cardiac History: Congestive Heart Failure, High Cholesterol, Hypertension, Myocardial Infarction (AL) Respiratory History: CHF, COPD, Pneumonia, Sleep Apnea Endocrine Medical History: No Pertinent History Musculoskelatal History: Fractures, Osteoarthritis GI Medical History: Diverticulitis, Diverticulosis History: No Pertinent History Pyscho-Social History: Anxiety, Depression Male Reproductive Disorders: No Pertinent History Comment: CABG x 4, AL x 3, 2 vertabra fx, leiomyosarcoma, tinnitus, covid in november - Past Surgical History Past Surgical History: Yes Neuro Surgical History: No Pertinent History Cardiac History: CABG, Cardiac Catheterization Respiratory Surgery: No Pertinent History GI Surgical History: No Pertinent History Genitourinary Surgical Hx: No Pertinent History Musculskeletal Surgical Hx: Other Male Surgical History: No Pertinent History Other Surgical History: CABG X 4, 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, kyphoplasty L1-L2 - Social History Smoking Status: Former smoker How long have you smoked: years Exposure to second hand smoke: No Alcohol: None Drug Use: none Significant Family History: heart disease, hypertension - Physical Exam General Appearance: other (intubated and sedated with paralytic) Eye Exam: eyes nml inspection Ears, Nose, Throat Exam: normal ENT inspection Neck Exam: normal inspection Respiratory Exam: normal breath sounds Cardiovascular Exam: regular rate/rhythm, tachycardia Gastrointestinal/Abdomen Exam: soft, normal bowel sounds, No tenderness, No mass Rectal Exam: deferred Back Exam: normal inspection Extremity Exam: normal inspection Skin Exam: normal color, warm, dry, No rash Results - Labs Lab/Micro Results: Microbiology 12/01/20 06:15 Blood Culture Gram Stain - Final Blood Not Reportable Blood Culture - Final NO GROWTH 12/01/20 06:10 Blood Culture Gram Stain - Final Blood Not Reportable Blood Culture - Final NO GROWTH Assessment/Plan (1) ARDS (adult respiratory distress syndrome) Status: Acute Assessment & Plan: Pt. admitted to ICU, on ventilator, appropriate iv antibiotics and steroids will be initiated. Pulmonology will be consulted and we will continue to moniter closely. Code(s): J80 - ACUTE RESPIRATORY DISTRESS SYNDROME (2) Acute hypoxemic respiratory failure Status: Acute Code(s): J96.01 - ACUTE RESPIRATORY FAILURE WITH HYPOXIA (3) Bilateral pneumonia Status: Acute Qualifiers: Pneumonia type: due to unspecified organism Lung location: unspecified part of lung Qualified Code(s): J18.9 - Pneumonia, unspecified organism Code(s): J18.9 - PNEUMONIA, UNSPECIFIED ORGANISM (4) Hemoptysis Status: Acute Code(s): R04.2 - HEMOPTYSIS
--- NOTE | 2020-12-16 22:34 | PCM.DS ---
Discharge Summary Date of Admission: 12/01/20 12:15 Date of Discharge: 12/08/20 Admitting Physician: NORMAN PHAM Consults: Consults on Case 12/03/20 09:04 Nutritional Consult ROUTINE Primary Care Provider: NORMAN PHAM Allergies Allergies No Known Drug Allergies Allergy (Verified 11/30/20 21:04) Hospital Summary - Hospital Course Hospital Course: Pt. admitted on 12/01/2020 with full respiratory support, the patient initially showed some signs of improvement. the started to worsen on 12/04 after an episode of emesis while on continuous OG feedings, subsequently on that day the patient required re-intubation after failure of the ET tube cuff, pt. was rapidly transitioned from one ET tube to another taking less than 2 minutes, pt. was readjusted on the ventilator and stabilized through the day, the following day and progressively the pateint began requiring increased oxygen support and levels of CO2 began rising in ABG's despite appropriate ventilator support. Pt. family did understand the situation and had previously declined transfer to [facility] for further management. After discussion of the grave situation and very poor prognosis with family on 12/08, the family was in full support of withdrawing ventilator support and allowing nature to takes its course. Pt. was withdrawn from life support and allowed to fully engage to his capabilites. Pt. succumbed to the illness shortly after extubation, support was given to family as needed and requested. - Vitals & Intake/Output Vital Signs: Vital Signs Temperature 100 F 12/08/20 10:00 Pulse Rate 110 H 12/08/20 10:00 Respiratory Rate 20 12/08/20 10:00 Blood Pressure 146/103 12/08/20 09:00 O2 Sat by Pulse Oximetry 97 12/08/20 10:00 - Lab Result Diagrams: 12/08/20 04:30 12/08/20 04:30 Micro Results-Entire Visit: Microbiology 12/01/20 06:15 Blood Culture Gram Stain - Final Blood Not Reportable Blood Culture - Final NO GROWTH 12/01/20 06:10 Blood Culture Gram Stain - Final Blood Not Reportable Blood Culture - Final NO GROWTH - Procedures and Test Procedures and Tests throughout Hospitalization: Therapy Orders & Screens 12/01/20 05:48 BiPap/CPAP STAT Comment: Standby STAT Comment: Vent Settings [Ventilator Management] Q12H Comment: 12/01/20 06:59 Respiratory Therapy Assessment DAILY Comment: 12/01/20 09:40 Respiratory Therapy Consult ROUTINE Comment: Reason For Exam: Diagnosis: Pneumonia 12/01/20 15:02 Oxygen High Flow per RT 50% Comment: Diagnosis: Pneumonia 12/01/20 15:30 RT Screen per Nursing Assess ONCE Comment: Protocol Order Physician Instructions: Greater than 3 points order RT Admission Screen Reason For Exam: Triggered on Admission Diagnosis: ARDS Diagnosis: ARDS Pneumonia: Yes Home O2: Yes Asthma: No CHF: Yes Home CPAP/BIPAP: Yes Home Nebs/MDI: Yes Total Points: 21 12/08/20 11:17 Extubate Patient PER RT PROTOCOL Comment: Diagnosis: ARDS Discharge Exam Comments: 12/16/20 22:38 pt. Final Diagnosis/Problem List - Final Discharge Diagnosis/Problem (1) ARDS (adult respiratory distress syndrome) Status: Acute Code(s): J80 - ACUTE RESPIRATORY DISTRESS SYNDROME (2) Acute hypoxemic respiratory failure Status: Acute Code(s): J96.01 - ACUTE RESPIRATORY FAILURE WITH HYPOXIA (3) Bilateral pneumonia Status: Acute Code(s): J18.9 - PNEUMONIA, UNSPECIFIED ORGANISM (4) Hemoptysis Status: Acute Code(s): R04.2 - HEMOPTYSIS - Discharge Discharge Date: 12/08/20 Disposition: Condition: Poor Prescriptions: No Action Metoprolol Tartrate 25 mg PO BID Sertraline HCl 100 mg PO DAILY Furosemide 40 mg [Lasix 40 MG] 40 mg PO BID Aspirin 81 mg PO DAILY Trazodone HCl 50 mg [Desyrel 50 mg] 50 mg PO HS Clopidogrel Bisulfate 75 mg [PLAVIX 75 MG Tablet] 75 mg PO DAILY lisinopriL [Zestril] 2.5 mg PO DAILY Atorvastatin Calcium 80 mg PO HS Albuterol Sulfate [Albuterol Sulfate Hfa] 2 inh PO Q6H PRN PRN Reason: Shortness Of Breath/Wheezing Sodium Chloride [Saline Nasal [place]] 1 spray NS TID PRN PRN PRN Reason: dry nose Nitroglycerin 0.4 mg Tablet [Nitrostat 0.4 MG Tablet] 0.4 mg SL UD Potassium Chloride 10 Meq Tab* [Klor Con 10 MEQ] 20 meq PO DAILY Apixaban [Eliquis] 5 mg PO BID Albuterol/Ipratropium 3ml Neb* [DUONEB 0.5-3 MG/3 ml Neb] 3 ml IH Q4H PRN PRN PRN Reason: Shortness Of Breath/Wheezing Omeprazole 20 mg PO DAILY Multivitamin 1 each PO DAILY Famotidine [Pepcid] 40 mg PO BID Metformin HCl 500 mg [Glucophage 500 MG] 500 mg PO BID Midodrine HCl 5 mg [Proamatine 5 mg] 5 mg PO Q8H Magnesium Oxide 400 mg [Mag-Ox 400] 400 mg PO BID Hydroxyzine HCl 25 mg [Atarax 25 mg] 12.5 mg PO Q6H PRN PRN PRN Reason: Anxiety Follow up with: NORMAN PHAM [Primary Care Provider] -
== END 2020-12-08 10:56 | disposition expired | DRG 204 ==
LOC: ED 20:26 → ICU 12-01 12:15
PROVIDERS: ADMIT Family Medicine; ATTEND Family Medicine
DX: J80 Acute respiratory distress syndrome (principal); J18.9 Pneumonia, unspecified organism; R04.2 Hemoptysis; I69.854 Hemiplegia and hemiparesis following other cerebrovascular disease affecting left non-dominant side; J84.112 Idiopathic pulmonary fibrosis; E11.9 Type 2 diabetes mellitus without complications; D50.0 Iron deficiency anemia secondary to blood loss (chronic); I10 Essential (primary) hypertension; J44.9 Chronic obstructive pulmonary disease, unspecified; Z79.899 Other long term (current) drug therapy; Z79.01 Long term (current) use of anticoagulants; Z95.1 Presence of aortocoronary bypass graft; Z86.16 Personal history of COVID-19; Z20.822 Contact with and (suspected) exposure to COVID-19
CPT/HCPCS: 31500; 36000; 36415; 36430; 36600; 51702; 71045; 71260; 74018; 76942; 80048; 80053; 80202; 81001; 82248; 82375; 82803; 82947; 83036; 83605; 83880; 84134; 84145; 84484; 85025; 85027; 86850; 86900; 86901; 87040; 93005; 93041; 94002; 94003; 94640; 94760; 94770; 94799; 96365; 96367; 96372; 96374; 96375; 96376; 99285; J0330; J1815; J1940; J2060; J2250; J2704; J2930; J3010; J3430; P9017; U0003; A9270-GY; J3370